=== PATIENT | male | born 1965 | race Caucasian/White ===

== ENCOUNTER 2016-04-02 13:23 | Inpatient (IN) | payer MEDICAID ==
[2016-04-02] MEDS ORDERED: ASPIRIN 81 MG TABLET, CHEWABLE PO ONE (14:25)
[2016-04-02] MEDS ORDERED: METHYLPREDNISOLONE INJ 125 MG/2 ML SDV IV ONE (14:25)
[2016-04-02] MEDS ORDERED: IPRATROPIUM/ALBUTEROL 0.5-2.5 MG/3 ML AMPUL NEB ONE (14:25)
[2016-04-02] MEDS ORDERED: NORMAL SALINE 1000 ML 1,000 ML IV ONE (14:26)
[2016-04-02 14:32] LABS: VENOUS BLOOD BASE EXCESS -0.4 mmol/L; VENOUS BLOOD HCO3 32.5 mmol/L (20-32)
[2016-04-02 14:33] LABS: ABSOLUTE EOSINOPHILS # (AUTO) 0.1 10^3/uL (0.0-0.6); ABSOLUTE LYMPHOCYTES (AUTO) 1.1 10^3/uL (0.5-4.7); ABSOLUTE MONOCYTES (AUTO) 1.9 10^3/uL (0.1-1.4); BASOPHILS % (AUTO) 0.3 % (0-2); EOSINOPHILS % (AUTO) 0.9 % (0-6); HEMATOCRIT 46.5 % (37.9-51.0); HEMOGLOBIN 14.1 g/dL (13.5-17.0); LYMPHOCYTES % (AUTO) 7.4 % (13-45); MEAN CORPUSCULAR HEMOGLOBIN 28.5 pg (27.0-33.4); MEAN CORPUSCULAR HGB CONC 30.4 g/dL (32.0-36.0); MEAN CORPUSCULAR VOLUME 94 fl (80-97); MONOCYTES % (AUTO) 12.2 % (3-13); RED BLOOD COUNT 4.95 10^6/uL (4.35-5.55); RED CELL DISTRIBUTION WIDTH 15.6 % (11.5-14.0); SEGMENTED NEUTROPHILS % (AUTO) 79.2 % (42-78); WHITE BLOOD COUNT 15.2 10^3/uL (4.0-10.5)
[2016-04-02 14:34] LABS: VENOUS BLOOD PCO2 101.2 mmHg (35-63); VENOUS BLOOD PH 7.13 (7.30-7.42)
--- NOTE | 2016-04-02 14:37 | ER Document Report ---
ED Respiratory Problem - General Chief Complaint: Shortness Of Breath Stated Complaint: SHORTNESS OF BREATH Notes: The patient is a 50-year-old male, past medical history current smoker, pituitary mass (currently being worked up as outpatient), presents with 2 days of dry cough, increasing shortness of breath and mild confusion earlier today. On arrival to the emergency room his pulse ox is 78%. He does not wear oxygen at home. According to his , his confusion has resolved after he was placed on oxygen in the emergency room. He denies chest pain, leg swelling, nausea, vomiting, focal weakness, rash, back pain, abdominal pain, sputum or fevers. Past Medical History - General Information source: Patient - Social History Smoking Status: Current Every Day Smoker Family History: Reviewed & Not Pertinent Review of Systems - Review of Systems Notes: REVIEW OF SYSTEMS: CONSTITUTIONAL: -fevers, -chills EENT: -eye pain, -difficulty swallowing, -nasal congestion CARDIOVASCULAR: -chest pain, -syncope. RESPIRATORY: -+cough, +SOB GASTROINTESTINAL: -abdominal pain, - nausea, -vomiting, -diarrhea GENITOURINARY: -dysuria, -hematuria MUSCULOSKELETAL: -back pain, -neck pain SKIN: -rash or skin lesions. HEMATOLOGIC: -easy bruising or bleeding. LYMPHATIC: -swollen, enlarged glands. NEUROLOGICAL: +confusion, -headache, -blurry vision PSYCHIATRIC: -anxiety, -depression. ALL OTHER SYSTEMS REVIEWED AND NEGATIVE. Physical Exam - Vital signs Vitals: Temp Pulse BP Pulse Ox 98.0 F 121 H 165/94 H 64 L 04/02/16 13:34 04/02/16 13:34 04/02/16 13:34 04/02/16 13:34 Temp 98.0, RR 28, Pulse 123, Pulse Ox 78% - Notes Notes: PHYSICAL EXAMINATION: GENERAL: Well-appearing, well-nourished and in no acute distress. HEAD: Atraumatic, normocephalic. EYES: Pupils equal round and reactive to light, extraocular movements intact, sclera anicteric, conjunctiva are normal. ENT: nares patent, oropharynx clear without exudates. Moist mucous membranes. NECK: Normal range of motion, supple without lymphadenopathy LUNGS: Tachypneic, bilateral wheezing, B/L crackles HEART: Tachycardia, regular rhythm ABDOMEN: Soft, nontender, normoactive bowel sounds. No guarding, no rebound. No masses appreciated. EXTREMITIES: Normal range of motion, no pitting or edema. No cyanosis. No calf tenderness. NEUROLOGICAL: Cranial nerves grossly intact. Normal speech, normal gait. Normal sensory, motor, and reflex exams. PSYCH: Normal mood, normal affect. SKIN: Warm, Dry, normal turgor, no rashes or lesions noted. Course - Re-evaluation Re-evalutation: Patient is hypercapnic, hypoxic respiratory failure. Patient placed on BiPAP and is in no respiratory distress at this time. CTA does not show PE, but does show evidence of multifocal pneumonia. With leukocytosis, tachycardia and tachypnea, patient meets sepsis. CAP antibiotics started. He does not meet severe sepsis criteria with a normal blood pressure and normal lactate. Patient requires inpatient admission for further evaluation and treatment. Spoke to Dr. Collier at 1630 and he has accepted patient as inpatient. - Vital Signs Vital signs: Temp Pulse Resp BP Pulse Ox 98.0 F 121 H 11 L 165/94 H 91 L 04/02/16 13:34 04/02/16 13:34 04/02/16 15:21 04/02/16 13:34 04/02/16 15:21 - Laboratory Result Diagrams: 04/02/16 13:50 04/02/16 13:50 Laboratory results interpreted by me: 04/02/16 04/02/16 04/02/16 13:50 13:50 13:50 WBC 15.2 H MCHC 30.4 L RDW 15.6 H Seg Neutrophils % 79.2 H Lymphocytes % 7.4 L Absolute Neutrophils 12.0 H Absolute Monocytes 1.9 H VBG pH 7.13 L* VBG pCO2 101.2 H* VBG HCO3 32.5 H Sodium 146.6 H Carbon Dioxide 33 H Lactic Acid Creatine Kinase 54 L 04/02/16 14:40 WBC MCHC RDW Seg Neutrophils % Lymphocytes % Absolute Neutrophils Absolute Monocytes VBG pH VBG pCO2 VBG HCO3 Sodium Carbon Dioxide Lactic Acid < 0.5 L Creatine Kinase - Diagnostic Test Radiology reviewed: Image reviewed, Reports reviewed Radiology results interpreted by me: CTA: No PE. Evidence of multifocal pneumonia. - EKG Interpretation by Me EKG shows normal: Sinus rhythm, Intervals, QRS Complexes, ST-T Waves Rate: Tachycardia - [address] [place]/QRS: Right axis deviation Discharge - Discharge Clinical Impression: Hypoxia, Acute respiratory acidosis, Hypercapnia Pneumonia Qualifiers: Pneumonia type: due to unspecified organism Laterality: bilateral Lung location : unspecified part of lung Qualified Code(s): J18.9 - Pneumonia, unspecified organism Sepsis Qualifiers: Sepsis type: sepsis due to unspecified organism Qualified Code(s): A41.9 - Sepsis, unspecified organism Condition: Serious Disposition: ADMITTED INPATIENT Admitting Provider: Hospitalist [facility] Unit Admitted: IMCU Referrals: LUCIUS FERRARA MD [Primary Care Provider] - Follow up as needed
[2016-04-02 14:39] LABS: ANION GAP 10 (5-19); BLOOD UREA NITROGEN 17 mg/dL (7-20); CALCIUM 9.6 mg/dL (8.4-10.2); CARBON DIOXIDE 33 mmol/L (22-30); CHLORIDE 104 mmol/L (98-107); CREATINE KINASE 54 U/L (55-170); CREATININE RESULT 0.73 mg/dL (0.52-1.25); GLUCOSE 104 mg/dL (75-110); POTASSIUM 4.4 mmol/L (3.6-5.0); SODIUM 146.6 mmol/L (137-145)
[2016-04-02 14:50] LABS: HGB HCT DIFFERENCE -4.2
[2016-04-02 14:54] LABS: TROPONIN I < 0.012 ng/mL
[2016-04-02] MEDS ORDERED: CEFTRIAXONE INJ 1000 MG VIAL IV ONE (15:12)
[2016-04-02] MEDS ORDERED: AZITHROMYCIN INJ 500 MG VIAL IV ONE (15:12)
[2016-04-02] MEDS ORDERED: CIPROFLOXACIN 400 MG/D5W RTU 200 ML IV SCH (16:00)
[2016-04-02] MEDS ORDERED: NICOTINE 7 MG/24 HR PATCH.TD24 TD ONE ×2 (16:38→20:00)
[2016-04-02] MEDS ORDERED: ALBUTEROL SULFATE 0.083% NEB 2.5 MG/3 ML AMPUL NEB PRN (16:48)
[2016-04-02] MEDS ORDERED: ONDANSETRON HCL INJ/PF 4 MG/2 ML SDV IV PRN (16:55)
--- NOTE | 2016-04-02 17:15 | PDOC H&P ---
History of Present Illness Admission Date/PCP: LUCIUS FERRARA MD Patient complains of: Shortness of breath History of Present Illness: JOSEPH CAREY is a 50 year old male presents to the emergency department with a two-week history of worsening shortness of breath initially noted only during exertion and now during rest with associated cough productive of yellow phlegm. Also associated with fevers and chills at home. He denies sore throat or abdominal pain nausea vomiting or diarrhea. He denies sick contacts. 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 He denies night sweats or abnormal weight loss or hemoptysis. He continues to smoke half pack cigarettes per day but has never been diagnosed with emphysema or COPD. He refuses influenza vaccine. His only chronic medical problem is a new diagnosis of pituitary adenoma discovered during evaluation of weight gain which showed hypothyroidism leading to further evaluation of the pituitary axis. He is not on steroid therapy. He has no underlying asthma or chronic bronchitis never suffered as a child. Evaluation in the emergency department including a CT angiography showed no evidence of pulmonary embolus however there was a multilobar pneumonia found. His arterial blood gas shows hypoxemia and hypercarbia, he's placed on BiPAP therapy for a pH of 7.1 and PCO2 of 101. I find the patient awake alert lucid and talkative. Past Medical History Cardiac Medical History: Reports: None Pulmonary Medical History: Reports: None Endocrine Medical History: Reports: Hypothyroidism, Other - Pituitary adenoma Past Surgical History Past Surgical History: Reports: None Social History Smoking Status: Current Every Day Smoker Cigarettes Packs Per Day: 0.5 Frequency of Alcohol Use: None Hx Recreational Drug Use: No Family History Family History: Reviewed & Not Pertinent. denies: COPD Parental Family History Reviewed: Yes Children Family History Reviewed: Yes Sibling(s) Family History Reviewed.: Yes Medication/Allergy Home Medications: No Home Medications 04/02/16 Allergies/Adverse Reactions: No Known Allergies Allergy (Unverified 04/02/16 17:08) Review of Systems Constitutional: PRESENT: chills, fever(s), weight gain. ABSENT: headache(s), night sweats, weight loss Eyes: ABSENT: visual disturbances Ears: ABSENT: hearing changes Cardiovascular: PRESENT: dyspnea on exertion. ABSENT: chest pain, edema, orthropnea, palpitations Respiratory: PRESENT: cough, dyspnea, sputum. ABSENT: hemoptysis Gastrointestinal: ABSENT: abdominal pain, constipation, diarrhea, hematemesis, hematochezia, nausea, vomiting Genitourinary: ABSENT: dysuria, hematuria Musculoskeletal: ABSENT: joint swelling Integumentary: ABSENT: rash, wounds Neurological: ABSENT: abnormal gait, abnormal speech, confusion, dizziness, focal weakness, syncope Psychiatric: ABSENT: anxiety, depression Endocrine: PRESENT: cold intolerance, heat intolerance. ABSENT: polydipsia, polyuria Hematologic/Lymphatic: ABSENT: easy bleeding, easy bruising Physical Exam Vital Signs: Temp Pulse Resp BP Pulse Ox 98.0 F 121 H 11 L 165/94 H 91 L 04/02/16 13:34 04/02/16 13:34 04/02/16 15:21 04/02/16 13:34 04/02/16 15:21 Intake & Output 04/01/16 04/02/16 04/03/16 06:59 06:59 06:59 Weight 122.9 kg General appearance: PRESENT: no acute distress, obese, well-developed Head exam: PRESENT: atraumatic, normocephalic Eye exam: PRESENT: conjunctiva pink, EOMI, PERRLA. ABSENT: scleral icterus Mouth exam: PRESENT: moist, tongue midline Neck exam: ABSENT: carotid bruit, JVD, lymphadenopathy, thyromegaly Respiratory exam: PRESENT: crackles, unlabored. ABSENT: rales, rhonchi, wheezes Cardiovascular exam: PRESENT: RRR, tachycardia. ABSENT: diastolic murmur, rubs , systolic murmur Pulses: PRESENT: normal dorsalis pedis pul Vascular exam: PRESENT: normal capillary refill GI/Abdominal exam: PRESENT: normal bowel sounds, soft. ABSENT: distended, guarding, rebound, tenderness Rectal exam: PRESENT: deferred Extremities exam: PRESENT: full ROM. ABSENT: calf tenderness, clubbing, pedal edema Neurological exam: PRESENT: alert, awake, oriented to person, oriented to place , oriented to time, oriented to situation Psychiatric exam: PRESENT: appropriate affect, normal mood Skin exam: PRESENT: dry, intact, warm. ABSENT: cyanosis, rash Results Laboratory Results: 04/02/16 13:50 04/02/16 13:50 04/02/16 04/02/16 04/02/16 13:50 13:50 13:50 WBC 15.2 H RBC 4.95 Hgb 14.1 Hct 46.5 MCV 94 MCH 28.5 MCHC 30.4 L RDW 15.6 H Plt Count 310 Seg Neutrophils % 79.2 H Lymphocytes % 7.4 L Monocytes % 12.2 Eosinophils % 0.9 Basophils % 0.3 Absolute Neutrophils 12.0 H Absolute Lymphocytes 1.1 Absolute Monocytes 1.9 H Absolute Eosinophils 0.1 Absolute Basophils 0.0 VBG pH 7.13 L* VBG pCO2 101.2 H* VBG HCO3 32.5 H VBG Base Excess -0.4 Sodium 146.6 H Potassium 4.4 Chloride 104 Carbon Dioxide 33 H Anion Gap 10 BUN 17 Creatinine 0.73 Est GFR ( Amer) > 60 Est GFR (Non-Af Amer) > 60 Glucose 104 Lactic Acid Calcium 9.6 04/02/16 14:40 WBC RBC Hgb Hct MCV MCH MCHC RDW Plt Count Seg Neutrophils % Lymphocytes % Monocytes % Eosinophils % Basophils % Absolute Neutrophils Absolute Lymphocytes Absolute Monocytes Absolute Eosinophils Absolute Basophils VBG pH VBG pCO2 VBG HCO3 VBG Base Excess Sodium Potassium Chloride Carbon Dioxide Anion Gap BUN Creatinine Est GFR ( Amer) Est GFR (Non-Af Amer) Glucose Lactic Acid < 0.5 L Calcium 04/02/16 04/02/16 13:50 13:50 Creatine Kinase 54 L Troponin I < 0.012 NT-Pro-B Natriuret Pep 77 Impressions: Chest X-Ray 04/02/16 14:10 IMPRESSION: Patchy predominately perihilar airspace densities are identified which could represent pneumonic infiltrates or pulmonary edema. No pleural effusions are identified. Other findings as noted above. Chest/Abdomen CTA 04/02/16 14:49 IMPRESSION: 1. No central or segmental pulmonary embolus. 2. Constellation of findings favor to represent multi focal pneumonia. 3. Small pericardial effusion. Assessment & Plan - Diagnosis (1) Pneumonia Qualifiers: Pneumonia type: due to unspecified organism Laterality: bilateral Lung location: unspecified part of lung Qualified Code(s): J18.9 - Pneumonia , unspecified organism Is this a current diagnosis for this admission?: YesPlan: Admitted to [facility] for continued BiPAP therapy through the night, repeat arterial blood gas in 1 hour. Empiric Rocephin and Zithromax. Follow-up on influenza screen in the emergency department and start Tamiflu if indicated. Supple oxygen as needed. Scheduled DuoNeb's with albuterol when necessary, flutter valve. (2) Hypercapnia Is this a current diagnosis for this admission?: YesPlan: As above (3) Hypoxia Is this a current diagnosis for this admission?: YesPlan: As above (4) Sepsis Qualifiers: Sepsis type: sepsis due to unspecified organism Qualified Code(s): A41.9 - Sepsis, unspecified organism Is this a current diagnosis for this admission?: YesPlan: Evidence by tachypnea, leukocytosis and source. (5) Pituitary adenoma Is this a current diagnosis for this admission?: YesPlan: Workup underway as an outpatient, already scheduled to see neurosurgery in [facility]. (6) KENDRICK (obstructive sleep apnea) Is this a current diagnosis for this admission?: YesPlan: Nocturnal O2 dependent based on previous sleep study, patient denies nocturnal CPAP. However given his known apnea and current multi lobar pneumonia we'll continue BiPAP through the night and reevaluate in the morning. - Time Time Spent: Greater than 70 Minutes - Inpatient Certification Based on my medical assessment, after consideration of the patient's comorbidities, presenting symptoms, or acuity I expect that the services needed warrant INPATIENT care.: Yes I certify that my determination is in accordance with my understanding of Medicare's requirements for reasonable and necessary INPATIENT services [42 CFR 412.3e].: Yes Medical Necessity: Failure to Improve With Outpatient Therapy, Need Close Monitoring Due to Risk of Patient Decompensation, Need For IV Fluids, Need for Nebulizer Therapy and Monitoring of Response
--- NOTE | 2016-04-02 18:35 | EKG REPORT ---
SEVERITY:- BORDERLINE ECG - SINUS TACHYCARDIA BORDERLINE RIGHT AXIS DEVIATION BORDERLINE T ABNORMALITIES, INFERIOR LEADS : Confirmed by: Francine Lynch MD 02-Apr-2016 18:34:17
[2016-04-02] MEDS: NORMAL SALINE 1000 ML 1,000 ML IV PRN (20:13)
[2016-04-02] MEDS: IPRATROPIUM/ALBUTEROL 0.5-2.5 MG/3 ML AMPUL NEB SCH (20:48)
[2016-04-02 21:27] LABS: ARTERIAL BLOOD BASE EXCESS 0.8 mmol/L; ARTERIAL BLOOD O2 SATURATION 99.4 % (94-98)
[2016-04-02] MEDS ORDERED: CIPROFLOXACIN 400 MG/D5W RTU 400 MG/200 ML RTUPB IV SCH (22:00)
[2016-04-03 01:35] LABS: VENOUS BLOOD BASE EXCESS 1.1 mmol/L; VENOUS BLOOD HCO3 31.6 mmol/L (20-32); VENOUS BLOOD PH 7.21 (7.30-7.42)
[2016-04-03 01:38] LABS: VENOUS BLOOD PCO2 81.6 mmHg (35-63)
[2016-04-03] MEDS: IPRATROPIUM/ALBUTEROL 0.5-2.5 MG/3 ML AMPUL NEB SCH ×4 (02:38→20:04)
[2016-04-03] MEDS: LANSOPRAZOLE 30 MG TAB.RAP.DR PO SCH (05:17)
[2016-04-03] MEDS: ACETAMINOPHEN 325 MG TABLET PO PRN (05:18)
[2016-04-03 07:48] LABS: VENOUS BLOOD BASE EXCESS -0.4 mmol/L; VENOUS BLOOD HCO3 30.6 mmol/L (20-32)
[2016-04-03 07:50] LABS: HEMATOCRIT 42.7 % (37.9-51.0); HGB HCT DIFFERENCE -3.7; MEAN CORPUSCULAR HEMOGLOBIN 28.7 pg (27.0-33.4); MEAN CORPUSCULAR HGB CONC 30.4 g/dL (32.0-36.0); MEAN CORPUSCULAR VOLUME 95 fl (80-97); RED BLOOD COUNT 4.52 10^6/uL (4.35-5.55); WHITE BLOOD COUNT 12.2 10^3/uL (4.0-10.5)
[2016-04-03 07:59] LABS: VENOUS BLOOD PCO2 84.2 mmHg (35-63); VENOUS BLOOD PH 7.18 (7.30-7.42)
[2016-04-03 08:13] LABS: ANION GAP 9 (5-19); BLOOD UREA NITROGEN 14 mg/dL (7-20); CALCIUM 9.4 mg/dL (8.4-10.2); CARBON DIOXIDE 30 mmol/L (22-30); CHLORIDE 104 mmol/L (98-107); CREATININE RESULT 0.65 mg/dL (0.52-1.25); GLUCOSE 95 mg/dL (75-110); POTASSIUM 4.6 mmol/L (3.6-5.0); SODIUM 142.9 mmol/L (137-145)
[2016-04-03] MEDS: ENOXAPARIN SODIUM INJ 40 MG/0.4 ML DISP.SYRIN SUBCUT SCH (10:32)
[2016-04-03] MEDS: DOCUSATE SODIUM 100 MG CAPSULE PO SCH (10:33)
[2016-04-03] MEDS: NORMAL SALINE 1000 ML 1,000 ML IV PRN (10:33)
[2016-04-03] MEDS: CEFTRIAXONE 1 GM/D5W RTU 50 ML IV SCH (10:34)
[2016-04-03] MEDS: AZITHROMYCIN 500 MG in DEXTROSE 5%-WATER 250 ML IV SCH (12:06)
[2016-04-03] MEDS ORDERED: METHYLPREDNISOLONE INJ 40 MG/1 ML SDV IV ONE (13:00)
--- NOTE | 2016-04-03 14:11 | PDOC PROGRESS REPORT ---
Subjective Progress Note for:: 04/03/16 Subjective:: JOSEPH CAREY is a 50 year old male presents to the emergency department with a two-week history of worsening shortness of breath initially noted only during exertion and now during rest with associated cough productive of yellow phlegm. Also associated with fevers and chills at home. He denies sore throat or abdominal pain nausea vomiting or diarrhea. He denies sick contacts. 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 He denies night sweats or abnormal weight loss or hemoptysis. He continues to smoke half pack cigarettes per day but has never been diagnosed with emphysema or COPD. He refuses influenza vaccine. His only chronic medical problem is a new diagnosis of pituitary adenoma discovered during evaluation of weight gain which showed hypothyroidism leading to further evaluation of the pituitary axis. He is not on steroid therapy. He has no underlying asthma or chronic bronchitis never suffered as a child. Evaluation in the emergency department including a CT angiography showed no evidence of pulmonary embolus however there was a multilobar pneumonia found. His arterial blood gas shows hypoxemia and hypercarbia, he's placed on BiPAP therapy for a pH of 7.1 and PCO2 of 101. I find the patient awake alert lucid and talkative. Dr. Patel titrated his BiPAP during the night and he has pH and PCO2 responded accordingly. The patient remains wide awake and alert and talkative completely lucid at this time. His has arrived at the bedside and tells me however that over the course the 24 hours preceding his admission he become more somnolent or confused and even combative at times which was clearly not his usual norm. Physical Exam Vital Signs: Temp Pulse Resp BP Pulse Ox 98.8 F 76 20 137/86 H 94 04/03/16 12:00 04/03/16 13:28 04/03/16 13:28 04/03/16 12:00 04/03/16 13:28 Intake & Output 04/02/16 04/03/16 04/04/16 06:59 06:59 06:59 Intake Total 1238 550 Balance 1238 550 Weight 122.9 kg General appearance: PRESENT: no acute distress, obese, well-developed Head exam: PRESENT: atraumatic, normocephalic Eye exam: PRESENT: conjunctiva pink, EOMI, PERRLA. ABSENT: scleral icterus Mouth exam: PRESENT: moist, tongue midline Neck exam: ABSENT: carotid bruit, JVD, lymphadenopathy, thyromegaly Respiratory exam: PRESENT: rhonchi - Diffuse, bilateral, new. ABSENT: rales, wheezes Cardiovascular exam: PRESENT: RRR. ABSENT: diastolic murmur, rubs, systolic murmur Pulses: PRESENT: normal dorsalis pedis pul Vascular exam: PRESENT: normal capillary refill GI/Abdominal exam: PRESENT: normal bowel sounds, soft. ABSENT: distended, guarding, rebound, tenderness Rectal exam: PRESENT: deferred Extremities exam: PRESENT: full ROM. ABSENT: calf tenderness, clubbing, pedal edema Neurological exam: PRESENT: alert, awake, oriented to person, oriented to place , oriented to time, oriented to situation Psychiatric exam: PRESENT: appropriate affect, normal mood Skin exam: PRESENT: dry, intact, warm. ABSENT: cyanosis, rash Results Laboratory Results: 04/03/16 07:35 04/03/16 07:35 04/02/16 04/03/16 04/03/16 21:00 01:16 07:35 WBC 12.2 H RBC 4.52 Hgb 13.0 L Hct 42.7 MCV 95 MCH 28.7 MCHC 30.4 L RDW 16.0 H Plt Count 265 Carbonic Acid 2.72 H HCO3/H2CO3 Ratio 11:1 ABG pH 7.17 L* ABG pCO2 90.5 H* ABG pO2 276.8 H ABG HCO3 32.5 H ABG O2 Saturation 99.4 H ABG Base Excess 0.8 VBG pH 7.21 L VBG pCO2 81.6 H* VBG HCO3 31.6 VBG Base Excess 1.1 FiO2 100% Sodium Potassium Chloride Carbon Dioxide Anion Gap BUN Creatinine Est GFR ( Amer) Est GFR (Non-Af Amer) Glucose Calcium 04/03/16 04/03/16 07:35 07:35 WBC RBC Hgb Hct MCV MCH MCHC RDW Plt Count Carbonic Acid HCO3/H2CO3 Ratio ABG pH ABG pCO2 ABG pO2 ABG HCO3 ABG O2 Saturation ABG Base Excess VBG pH 7.18 L* VBG pCO2 84.2 H* VBG HCO3 30.6 VBG Base Excess -0.4 FiO2 Sodium 142.9 Potassium 4.6 Chloride 104 Carbon Dioxide 30 Anion Gap 9 BUN 14 Creatinine 0.65 Est GFR ( Amer) > 60 Est GFR (Non-Af Amer) > 60 Glucose 95 Calcium 9.4 Impressions: Chest X-Ray 04/02/16 14:10 IMPRESSION: Patchy predominately perihilar airspace densities are identified which could represent pneumonic infiltrates or pulmonary edema. No pleural effusions are identified. Other findings as noted above. Chest/Abdomen CTA 04/02/16 14:49 IMPRESSION: 1. No central or segmental pulmonary embolus. 2. Constellation of findings favor to represent multi focal pneumonia. 3. Small pericardial effusion. Assessment & Plan - Diagnosis (1) Pneumonia Qualifiers: Pneumonia type: due to unspecified organism Laterality: bilateral Lung location: unspecified part of lung Qualified Code(s): J18.9 - Pneumonia , unspecified organism Is this a current diagnosis for this admission?: YesPlan: Community-acquired. Admitted to [facility] for continued BiPAP therapy as needed. Empiric Rocephin and Zithromax. influenza screen negative, mycoplasma antibodies pending. Supplemental oxygen as needed. Scheduled DuoNeb's with albuterol when necessary, flutter valve. Pulmonary consult (2) Hypercapnia Is this a current diagnosis for this admission?: YesPlan: As above (3) Hypoxia Is this a current diagnosis for this admission?: YesPlan: As above. Diffuse wheezing today so we will add systemic steroids and monitor effect awaiting pulmonology's consult (4) Sepsis Qualifiers: Sepsis type: sepsis due to unspecified organism Qualified Code(s): A41.9 - Sepsis, unspecified organism Is this a current diagnosis for this admission?: YesPlan: Evidence by tachypnea, leukocytosis and source. Stable (5) Pituitary adenoma Is this a current diagnosis for this admission?: YesPlan: Workup underway as an outpatient, already scheduled to see neurosurgery in [facility]. (6) KENDRICK (obstructive sleep apnea) Is this a current diagnosis for this admission?: YesPlan: Nocturnal O2 dependent based on previous sleep study, patient denies nocturnal CPAP. However given his known apnea and current multi lobar pneumonia we'll continue BiPAP at night and reevaluate as we go. - Time Time Spent with patient: 35 or more minutes Anticipated discharge: Home Within: within 48 hours
[2016-04-03] MEDS: LACTOBACILLUS ACIDOPHILUS 250 MG TAB PO SCH (17:42)
[2016-04-03 19:15] LABS: ARTERIAL BLOOD BASE EXCESS 4.5 mmol/L
--- NOTE | 2016-04-03 20:38 | CONSULTATION REPORT E ---
Consultation Report NAME: JOSEPH CAREY : 1965 AGE: 50Y DATE: 04/03/2016 336 A TO: LINDA SALCEDO M.D. FROM: ALLAN ARELLANO M.D. Requesting Physician HISTORY OF PRESENT ILLNESS: Patient is a 50-year-old male who came in for increased shortness of breath associated with increased coughing productively with yellow greenish sputum over the last 1 or 2 weeks. Condition worsened. Thus, patient came into the Emergency Room eventually. Patient claimed that he had fever and chills at home. Patient was admitted about 2 days ago, was started on azithromycin, ceftriaxone, appeared to be feeling a lot better. He was placed on BiPAP when he came in and tolerated it well. Currently, the patient is feeling a lot better. No fever over the last 24-48 hours. No chills. No hemoptysis. No chest pain. Currently not on BiPAP and not in apparent respiratory distress. Patient claimed that he smokes about 1 pack a day for several years. 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 PAST MEDICAL HISTORY: The patient has past medical history of: 1. Hypothyroidism. 2. Pituitary adenoma. Denies any history of hypertension or heart problem. PAST SURGICAL HISTORY: None. SOCIAL HISTORY: Patient smokes 1 pack a day every day for several years. Denies alcohol abuse or illicit drug use. Denies marijuana or cocaine use. FAMILY HISTORY: Unremarkable. HOME MEDICATIONS: None. ALLERGIES: No known drug allergies. REVIEW OF SYSTEMS: CONSTITUTIONAL: Claimed to have fever and chills at home prior to admission. EYES, EARS, NOSE AND THROAT: No ear drainage, no nasal discharge. No blurry vision. CARDIOVASCULAR: Denies any history of hypertension, arrhythmias, or heart problems. Denies any chest pain. RESPIRATORY: Complained about increased shortness of breath and coughing productively with yellow greenish sputum, chest tightness. GASTROINTESTINAL: No nausea, vomiting, diarrhea. GENITOURINARY: No dysuria or hematuria, or passing renal stone. EXTREMITIES: No joint swelling or cellulitis. PHYSICAL EXAMINATION: GENERAL: Patient is awake, alert, oriented x3. VITAL SIGNS: Temperature 98.9 with a T-max of 98.9 over the last 24 hours. Heart rate 105. Blood pressure is 121/71. Saturation is 98% on 3 L on nasal cannula. HEENT: Eyes: No jaundice or pallor. Ears, nose and throat: No ear drainage or nasal discharge. Head and neck: No scalp swelling or tenderness. Neck supple. CHEST/LUNGS: No wheezing, no rhonchi. No coarse crackles. CARDIOVASCULAR: S1 and S2 distinct. Normal rate and regular rhythm. ABDOMEN: Flabby. Positive bowel sounds. Soft, nondistended. EXTREMITIES: No joint swelling. No cellulitis. LABORATORY: CBC done today showed white count of 12.2 from 15.2 yesterday; hemoglobin is 13; hematocrit is 42.7. The chemistry today shows sodium 142.9, potassium 4.6, chloride 104, CO2 30, BUN 14, creatinine 0.65. Lactate 0.05. Cardiac enzymes were negative. Anti-BNP was 77. Blood gas done this morning at 0735 hours showed venous blood gas pH was 7.18, venous blood gas pCO2 of 84.2, bicarbonate 13.6. Blood cultures on 04/02/[address] scan done on 04/02/2016 showed infiltrate with ground-glass pattern on the left and right apical lobes and the right lower lobe. Right lower lobe showed some crease appearing pattern as well. ASSESSMENT: 1. Pneumonia. Community-acquired pneumonia cannot be completely excluded. 2. 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 3. History of smoking 1 pack a day for several years. PLAN/RECOMMENDATIONS: 1. Continue IV antibiotics. 2. Sputum culture tonight. 3. We will repeat ABG tonight. 4. Recommend tapering the Solu-Medrol to 20 mg q.12 hours. 5. Titrate FiO2 to give saturation 91-94%. DICTATING PHYSICIAN: LINDA SALCEDO MD,FARRUKH,MPH [id number] PHY#: [id number] ID: [id number] JOB#: [id number] ACCT: [id number] cc:LINDA SALCEDO M.D. > [facility]
[2016-04-03] MEDS: METHYLPREDNISOLONE INJ 40 MG/1 ML SDV IV SCH (22:00)
[2016-04-04] MEDS: NICOTINE 14 MG/24 HR PATCH.TD24 TD PRN (01:02)
[2016-04-04] MEDS: IPRATROPIUM/ALBUTEROL 0.5-2.5 MG/3 ML AMPUL NEB SCH ×4 (01:56→20:49)
[2016-04-04] MEDS: NORMAL SALINE 1000 ML 1,000 ML IV PRN (02:27)
[2016-04-04] MEDS: LANSOPRAZOLE 30 MG TAB.RAP.DR PO SCH (06:27)
[2016-04-04 06:39] LABS: HEMATOCRIT 40.7 % (37.9-51.0); HEMOGLOBIN 12.4 g/dL (13.5-17.0); HGB HCT DIFFERENCE -3.5; MEAN CORPUSCULAR HEMOGLOBIN 28.6 pg (27.0-33.4); MEAN CORPUSCULAR HGB CONC 30.4 g/dL (32.0-36.0); MEAN CORPUSCULAR VOLUME 94 fl (80-97); RED BLOOD COUNT 4.33 10^6/uL (4.35-5.55); RED CELL DISTRIBUTION WIDTH 15.4 % (11.5-14.0); WHITE BLOOD COUNT 12.4 10^3/uL (4.0-10.5)
[2016-04-04 06:58] LABS: ANION GAP 9 (5-19); BLOOD UREA NITROGEN 18 mg/dL (7-20); CALCIUM 9.3 mg/dL (8.4-10.2); CARBON DIOXIDE 32 mmol/L (22-30); CHLORIDE 104 mmol/L (98-107); CREATININE RESULT 0.73 mg/dL (0.52-1.25); GLUCOSE 113 mg/dL (75-110); POTASSIUM 4.3 mmol/L (3.6-5.0); SODIUM 144.5 mmol/L (137-145)
[2016-04-04] MEDS: CEFTRIAXONE 1 GM/D5W RTU 50 ML IV SCH (10:09)
[2016-04-04] MEDS: AZITHROMYCIN 500 MG in DEXTROSE 5%-WATER 250 ML IV SCH (10:09)
[2016-04-04] MEDS: ENOXAPARIN SODIUM INJ 40 MG/0.4 ML DISP.SYRIN SUBCUT SCH (10:09)
[2016-04-04] MEDS: LACTOBACILLUS ACIDOPHILUS 250 MG TAB PO SCH ×2 (10:10→18:32)
[2016-04-04] MEDS: METHYLPREDNISOLONE INJ 40 MG/1 ML SDV IV SCH (10:10)
[2016-04-04] MEDS: DOCUSATE SODIUM 100 MG CAPSULE PO SCH (10:10)
--- NOTE | 2016-04-04 14:12 | PDOC PROGRESS REPORT ---
Subjective Progress Note for:: 04/04/16 Subjective:: Patient is feeling a lot better No fever no chills no pleuritic chest pain He is oxygenating adequately on 4 L/m nasal cannula Patient states that stay at home he has nasal O2 at night He did have a sleep study and was found not to be a candidate for C Pap 4 years ago Physical Exam Vital Signs: Temp Pulse Resp BP Pulse Ox 98.1 F 119 H 18 125/75 92 04/04/16 11:25 04/04/16 13:59 04/04/16 13:06 04/04/16 11:25 04/04/16 13:06 Intake & Output 04/03/16 04/04/16 04/05/16 00:59 00:59 00:59 Intake Total 300 5146 1863 Balance 300 5146 1863 Weight 122.9 kg 124.8 kg General appearance: PRESENT: no acute distress, obese Head exam: PRESENT: atraumatic, normocephalic Eye exam: PRESENT: conjunctiva pink, EOMI, PERRLA. ABSENT: scleral icterus Neck exam: ABSENT: carotid bruit, JVD, lymphadenopathy, thyromegaly Respiratory exam: PRESENT: decreased breath sounds, rales - Bilaterally, unlabored. ABSENT: accessory muscle use, prolonged expiratory phas Cardiovascular exam: PRESENT: tachycardia. ABSENT: diastolic murmur, systolic murmur Vascular exam: PRESENT: normal capillary refill GI/Abdominal exam: PRESENT: normal bowel sounds, soft. ABSENT: distended, guarding, mass, organolmegaly, rebound, tenderness Extremities exam: PRESENT: full ROM. ABSENT: calf tenderness, clubbing, pedal edema Neurological exam: PRESENT: alert, awake, oriented to person, oriented to place , oriented to time, oriented to situation, CN II-XII grossly intact. ABSENT: motor sensory deficit Skin exam: PRESENT: dry, intact, warm. ABSENT: cyanosis, rash Results Laboratory Results: 04/04/16 06:18 04/04/16 06:18 04/03/16 04/04/16 04/04/16 19:00 06:18 06:18 WBC 12.4 H RBC 4.33 L Hgb 12.4 L Hct 40.7 MCV 94 MCH 28.6 MCHC 30.4 L RDW 15.4 H Plt Count 250 Carbonic Acid 1.70 H HCO3/H2CO3 Ratio 18:1 ABG pH 7.36 ABG pCO2 56.4 H ABG pO2 66.0 L ABG HCO3 31.4 H ABG O2 Saturation 92.0 L ABG Base Excess 4.5 FiO2 2.0L Sodium 144.5 Potassium 4.3 Chloride 104 Carbon Dioxide 32 H Anion Gap 9 BUN 18 Creatinine 0.73 Est GFR ( Amer) > 60 Est GFR (Non-Af Amer) > 60 Glucose 113 H Calcium 9.3 Impressions: Chest X-Ray 04/02/16 14:10 IMPRESSION: Patchy predominately perihilar airspace densities are identified which could represent pneumonic infiltrates or pulmonary edema. No pleural effusions are identified. Other findings as noted above. Chest/Abdomen CTA 04/02/16 14:49 IMPRESSION: 1. No central or segmental pulmonary embolus. 2. Constellation of findings favor to represent multi focal pneumonia. 3. Small pericardial effusion. Assessment & Plan - Diagnosis (1) Acute and chronic respiratory failure with hypercapnia Is this a current diagnosis for this admission?: YesPlan: Secondary to obstructive sleep apnea ,COPD exacerbation and bilateral pneumonia Continue steroids nebs antibiotics Patient initially BiPAP support is now oxygenating adequately on nasal O2 Evaluate patient at discharge for nasal O2 during the day Repeat sleep study as an outpatient after discharge (2) KENDRICK (obstructive sleep apnea) Is this a current diagnosis for this admission?: Yes (3) Pituitary adenoma Is this a current diagnosis for this admission?: YesPlan: Workup in progress (4) Pneumonia Qualifiers: Pneumonia type: due to unspecified organism Laterality: bilateral Lung location: unspecified part of lung Qualified Code(s): J18.9 - Pneumonia , unspecified organism Is this a current diagnosis for this admission?: YesPlan: Continue antibiotics We'll switch to by mouth antibiotics vantin and azithromycin Patient will be treated for 10 days after discharge - Time Time Spent with patient: 25-34 minutes
[2016-04-04] MEDS: CEFPODOXIME 200 MG TABLET PO SCH (22:56)
[2016-04-05] MEDS: NICOTINE 14 MG/24 HR PATCH.TD24 TD PRN (01:44)
[2016-04-05] MEDS: IPRATROPIUM/ALBUTEROL 0.5-2.5 MG/3 ML AMPUL NEB SCH ×3 (01:46→13:17)
[2016-04-05 05:08] LABS: HEMATOCRIT 39.5 % (37.9-51.0); HEMOGLOBIN 12.7 g/dL (13.5-17.0); HGB HCT DIFFERENCE -1.4; MEAN CORPUSCULAR HEMOGLOBIN 29.5 pg (27.0-33.4); MEAN CORPUSCULAR HGB CONC 32.1 g/dL (32.0-36.0); MEAN CORPUSCULAR VOLUME 92 fl (80-97); RED CELL DISTRIBUTION WIDTH 15.1 % (11.5-14.0)
[2016-04-05 05:27] LABS: ANION GAP 10 (5-19); BLOOD UREA NITROGEN 23 mg/dL (7-20); CALCIUM 9.4 mg/dL (8.4-10.2); CARBON DIOXIDE 30 mmol/L (22-30); CHLORIDE 106 mmol/L (98-107); CREATININE RESULT 0.68 mg/dL (0.52-1.25); GLUCOSE 115 mg/dL (75-110); POTASSIUM 3.6 mmol/L (3.6-5.0); SODIUM 146.3 mmol/L (137-145)
[2016-04-05] MEDS: ACETAMINOPHEN 325 MG TABLET PO PRN (09:01)
[2016-04-05] MEDS: LANSOPRAZOLE 30 MG TAB.RAP.DR PO SCH (09:01)
--- NOTE | 2016-04-05 09:54 | PROGRESS NOTE E ---
Progress Note NAME: JOSEPH CAREY : 1965 AGE: 50Y DATE: 04/04/2016 ROOM: 336 SUBJECTIVE: The patient is a 50-year-old male who came in with severe respiratory distress and treated for pneumonia and acute respiratory failure requiring BiPAP therapy. Currently feeling a lot better. Denies any fever. Denies any nausea, vomiting, diarrhea. Still coughing yellow-green phlegm. The patient was afebrile for the last 24 hours. Denies any hemoptysis or chest pain. He is on home oxygen therapy of 4 L after sleep study 3 or 4 years ago in [place]. OBJECTIVE: GENERAL: The patient is awake, alert, oriented x3, not is apparent respiratory distress. VITAL SIGNS: With a temperature is 98.5 with a T-Max of 98.5. Blood pressure is 151/88. Pulse rate is 87. Respiratory rate 16. Saturation 92% on room air. EYES: No jaundice or pallor. EARS, NOSE, AND THROAT: No ear drainage. No nasal discharge. HEAD AND NECK: No scalp swelling or tenderness. Neck is supple. CHEST AND LUNGS: Fine rales bibasilar. No wheezing. No coarse crackles. CARDIOVASCULAR: S1, S2 is distinct. No murmur. Regular rhythm. ABDOMEN: Flabby, positive bowel sounds, soft, nondistended. EXTREMITIES: No joint swelling. No cellulitis. LABORATORY: CBC done today shows white count of 12.4 from 15.2 two days ago, hemoglobin is 12.4, hematocrit is 40.7, platelet is 250. ABG last night at 7:00 p.m. showed pH of 7.36, pCO2 of 56,and pO2 of 66.4 Saturation is 92% on 2 L. Chemistry: Sodium 144, potassium 4.3, CO2 is 22, chloride is 104. BUN is 18, creatinine 0.73. Glucose 113, calcium 9.3. Blood cultures yesterday no growth up to 48 hours. ASSESSMENT: 1. PNEUMONIA BILATERALLY. 2. INTERSTITIAL PNEUMONITIS - POSSIBLE ACUTE ON CHRONIC HYPERSENSITIVITY PNEUMONITIS. 3. SEVERE HYPOXEMIA REQUIRING OXYGEN THERAPY. PLAN/RECOMMENDATION: 1. Continue antibiotics. 2. Recommend tapering of the prednisone to 10 mg PO daily. Patient needed to be on prednisone for at least 3-4 weeks. 3. Recommend followup in 2 weeks following hospital discharge. 4. Recommend home oxygen therapy 2 L nasal cannula during sleep. 5. Encouraged patient to quit smoking. Will sign off tonight. If you have any questions, please feel free to call me. DICTATING PHYSICIAN: LINDA SALCEDO MD,FARRUKH,MPH [id number] PHY#: [id number] ID: [id number] JOB#: [id number] ACCT: [id number] cc: > MTDD
[2016-04-05] MEDS ORDERED: PREDNISONE 20 MG TABLET PO SCH (10:00)
[2016-04-05] MEDS ORDERED: AZITHROMYCIN 250 MG TABLET PO SCH (10:00)
[2016-04-05] MEDS: ENOXAPARIN SODIUM INJ 40 MG/0.4 ML DISP.SYRIN SUBCUT SCH (10:35)
[2016-04-05] MEDS: LACTOBACILLUS ACIDOPHILUS 250 MG TAB PO SCH (10:38)
[2016-04-05] MEDS: DOCUSATE SODIUM 100 MG CAPSULE PO SCH (10:39)
[2016-04-05] MEDS: CEFPODOXIME 200 MG TABLET PO SCH (10:39)
[2016-04-05 14:48] VITALS: BP 137/86
--- NOTE | 2016-04-05 15:11 | PDOC DISCHARGE SUMMARY ---
General - Admit/Disc Date/PCP Admission Date/Primary Care Provider: 04/02/16 16:48 LUCIUS FERRARA MD Discharge Date: 04/05/16 - Discharge Diagnosis (1) Acute and chronic respiratory failure with hypercapnia Is this a current diagnosis for this admission?: YesSummary: Acute on chronic respiratory failure with hypoxemia and hypercapnia Respiratory failure secondary to bilateral pneumonia COPD exacerbation and obstructive sleep apnea Patient prior to admission is already on nasal O2 at night He did not wear her C Pap He was discharged with nasal O2 with ambulation and an O2 concentrator was obtained (2) KENDRICK (obstructive sleep apnea) Is this a current diagnosis for this admission?: YesSummary: Treated with nasal O2 at night (3) Pituitary adenoma Is this a current diagnosis for this admission?: YesSummary: Ongoing workup at [facility] Patient is scheduled for an MRI of the pituitary gland (4) Pneumonia Is this a current diagnosis for this admission?: YesSummary: Patient was diagnosed of bilateral pneumonia He was treated with ceftriaxone and Zithromax And discharge on vantin and azithromycin - Additional Information Discharge Diet: As Tolerated Discharge Activity: Activity As Tolerated, Balance Activity w/Rest Home Medications: Levothyroxine Sodium [Synthroid] 50 mcg PO DAILY 04/02/16 Levothyroxine Sodium [Synthroid] 200 mcg PO DAILY 04/02/16 Simvastatin [Zocor 40 mg Tablet] 40 mg PO QHS 04/02/16 Acidoph/L.bulg/Bif.b/S.thermop [Bacid Caplet] 1 each PO BID #20 tablet 04/05/16 Azithromycin [Zithromax 250 mg Tablet] 500 mg PO DAILY #10 tablet 04/05/16 Cefpodoxime Proxetil [Vantin 200 mg Tablet] 1 tab PO Q12 #20 tab 04/05/16 Nicotine [Nicoderm 14 mg/24 Hr Transdermal Patch] 1 each TD DAILYP PRN #30 patch.td24 04/05/16 Prednisone [Deltasone 20 mg Tablet] 40 mg PO DAILY #50 tablet 04/05/16 History of Present Illness Patient complains of: Shortness of breath History of Present Illness: JOSEPH CAREY is a 50 year old male presents to the emergency department with a two-week history of worsening shortness of breath initially noted only during exertion and now during rest with associated cough productive of yellow phlegm. Also associated with fevers and chills at home. He denies sore throat or abdominal pain nausea vomiting or diarrhea. He denies sick contacts. 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 He denies night sweats or abnormal weight loss or hemoptysis. He continues to smoke half pack cigarettes per day but has never been diagnosed with emphysema or COPD. He refuses influenza vaccine. His only chronic medical problem is a new diagnosis of pituitary adenoma discovered during evaluation of weight gain which showed hypothyroidism leading to further evaluation of the pituitary axis. He is not on steroid therapy. He has no underlying asthma or chronic bronchitis never suffered as a child. Evaluation in the emergency department including a CT angiography showed no evidence of pulmonary embolus however there was a multilobar pneumonia found. His arterial blood gas shows hypoxemia and hypercarbia, he's placed on BiPAP therapy for a pH of 7.1 and PCO2 of 101. I find the patient awake alert lucid and talkative. Hospital Course Hospital Course: Patient was admitted with hypoxemia, bilateral pneumonia He had an uncomplicated course and responded to ceftriaxone and azithromycin he was found to be still hypoxemic with exertion at discharge He was discharged with nasal O2 on ambulation Physical Exam Vital Signs: Temp Pulse Resp BP Pulse Ox 98.4 F 102 H 18 137/86 H 18 L 04/05/16 14:36 04/05/16 14:36 04/05/16 14:36 04/05/16 14:36 04/05/16 14:36 Intake & Output 04/04/16 04/05/16 04/06/16 00:59 00:59 00:59 Intake Total 5146 5429 655 Output Total 3 Balance 5146 5426 655 Weight 122.9 kg 124.8 kg 122 kg General appearance: PRESENT: no acute distress Head exam: PRESENT: atraumatic, normocephalic Eye exam: PRESENT: conjunctiva pink, EOMI, PERRLA. ABSENT: scleral icterus Neck exam: ABSENT: carotid bruit, JVD, lymphadenopathy, thyromegaly Respiratory exam: PRESENT: decreased breath sounds, symmetrical, wheezes. ABSENT: accessory muscle use, prolonged expiratory phas, tachypnea Cardiovascular exam: PRESENT: RRR. ABSENT: diastolic murmur, rubs, systolic murmur Pulses: PRESENT: normal dorsalis pedis pul GI/Abdominal exam: PRESENT: normal bowel sounds, soft. ABSENT: distended, guarding, mass, organolmegaly, rebound, tenderness Neurological exam: PRESENT: alert, awake, oriented to person, oriented to place , oriented to time, oriented to situation, CN II-XII grossly intact. ABSENT: motor sensory deficit Skin exam: PRESENT: dry, intact, warm. ABSENT: cyanosis, rash Results Laboratory Results: 04/05/16 04:50 04/05/16 04:50 04/05/16 04/05/16 04:50 04:50 WBC 13.0 H RBC 4.30 L Hgb 12.7 L Hct 39.5 MCV 92 MCH 29.5 MCHC 32.1 RDW 15.1 H Plt Count 267 Sodium 146.3 H Potassium 3.6 Chloride 106 Carbon Dioxide 30 Anion Gap 10 BUN 23 H Creatinine 0.68 Est GFR ( Amer) > 60 Est GFR (Non-Af Amer) > 60 Glucose 115 H Calcium 9.4 Impressions: Chest X-Ray 04/02/16 14:10 IMPRESSION: Patchy predominately perihilar airspace densities are identified which could represent pneumonic infiltrates or pulmonary edema. No pleural effusions are identified. Other findings as noted above. Chest/Abdomen CTA 04/02/16 14:49 IMPRESSION: 1. No central or segmental pulmonary embolus. 2. Constellation of findings favor to represent multi focal pneumonia. 3. Small pericardial effusion. Plan Discharge Plan: Patient was discharged home to follow up with primary care physician and psych nurse At time of discharge he was stable Time Spent: Less than 30 Minutes
== END 2016-04-05 15:30 | disposition home or self-care (01) | DRG 193 ==
LOC: ER 13:23 → EH 16:48 → 3S 18:54
PROVIDERS: ADMIT Internal Medicine; ATTEND Internal Medicine
DX: J18.9 Pneumonia, unspecified organism (principal); J96.22 Acute and chronic respiratory failure with hypercapnia; J96.21 Acute and chronic respiratory failure with hypoxia; J44.1 Chronic obstructive pulmonary disease with (acute) exacerbation; E87.2 Acidosis; G47.33 Obstructive sleep apnea (adult) (pediatric); E03.9 Hypothyroidism, unspecified; D35.2 Benign neoplasm of pituitary gland; J84.89 Other specified interstitial pulmonary diseases; F17.210 Nicotine dependence, cigarettes, uncomplicated
CPT/HCPCS: 36415; 36600; 71020; 71275; 80048; 82550; 82803; 83605; 83880; 84484; 85025; 85027; 86738; 87040; 87804; 93005; 93010; 94640; 94660; 96361; 96365; 96375; 99285; J0456; J0696; J0744; J1650; J2920; J2930; J3490; J7030; J7060; J7512; J7620

== ENCOUNTER → 2016-07-08 | Outpatient (CLI) | payer MEDICAID | LOC: RAD 09:20 | PROVIDERS: ATTEND Internal Medicine Critical Care Medicine | DX: R91.8 Other nonspecific abnormal finding of lung field (principal); J45.909 Unspecified asthma, uncomplicated; R06.09 Other forms of dyspnea; R09.02 Hypoxemia; J18.9 Pneumonia, unspecified organism; R53.83 Other fatigue; G47.30 Sleep apnea, unspecified | CPT/HCPCS: 71250 ==

== ENCOUNTER 2017-08-29 08:20 | Inpatient (IN) | payer SELFPAY ==
--- NOTE | 2017-08-29 08:58 | ER Document Report ---
ED General - General Chief Complaint: General Weakness Stated Complaint: BLOOD PRESSURE ISSUES Time Seen by Provider: 08/29/17 08:37 TRAVEL OUTSIDE OF THE [place] IN LAST 30 DAYS: No - Related Data Allergies/Adverse Reactions: No Known Allergies Allergy (Verified 08/29/17 08:22) Past Medical History - Social History Family History: None Pulmonary Medical History: Reports: Hx COPD Endocrine Medical History: Reports: Hx Hypothyroidism Renal/ Medical History: Denies: Hx Peritoneal Dialysis Psychiatric Medical History: Denies: Hx Depression - Immunizations Hx Diphtheria, Pertussis, Tetanus Vaccination: No Discharge - Discharge Referrals: LOCALMD,NO [Primary Care Provider] - Follow up as needed
[2017-08-29] MEDS ORDERED: NORMAL SALINE 1000 ML 1,000 ML IV ONE ×2 (09:14→09:16)
--- NOTE | 2017-08-29 09:34 | ER Document Report ---
ED General - General Chief Complaint: General Weakness Stated Complaint: BLOOD PRESSURE ISSUES Time Seen by Provider: 08/29/17 08:37 Notes: The patient is a 51-year-old male, past medical history recently perforated ulcer that required surgery and ICU stay with discharge 1 week ago, C. difficile , pituitary adenoma, hypothyroidism, presents with 1 day of feeling weak and lightheaded. He took his blood pressure home this morning was 64/35. Patient is having copious amounts of watery diarrhea and is taking his Flagyl. Patient is also having some shortness of breath and mild leg swelling. He denies abdominal pain, fevers, back pain, chest pain, hemoptysis, cough, calf swelling , blood in his stool, urinary symptoms, headache or rash. TRAVEL OUTSIDE OF THE [place] IN LAST 30 DAYS: No - Related Data Allergies/Adverse Reactions: No Known Allergies Allergy (Verified 08/29/17 08:22) Past Medical History - General Information source: Patient - Social History Smoking Status: Former Smoker Chew tobacco use (# tins/day): No Frequency of alcohol use: None Drug Abuse: None Family History: None Patient has suicidal ideation: No Patient has homicidal ideation: No Pulmonary Medical History: Reports: Hx COPD Endocrine Medical History: Reports: Hx Hypothyroidism Renal/ Medical History: Denies: Hx Peritoneal Dialysis Psychiatric Medical History: Denies: Hx Depression Past Surgical History: Reports: Hx Abdominal Surgery - perforated ulcer repaired , Hx Orthopedic Surgery - orbital fracture - Immunizations Hx Diphtheria, Pertussis, Tetanus Vaccination: No Review of Systems - Review of Systems Notes: REVIEW OF SYSTEMS: CONSTITUTIONAL: -fevers, -chills EENT: -eye pain, -difficulty swallowing, -nasal congestion CARDIOVASCULAR: -chest pain, +near syncope. RESPIRATORY: -cough, +SOB GASTROINTESTINAL: -abdominal pain, -nausea, -vomiting, -diarrhea GENITOURINARY: -dysuria, -hematuria MUSCULOSKELETAL: -back pain, -neck pain SKIN: -rash or skin lesions. HEMATOLOGIC: -easy bruising or bleeding. LYMPHATIC: -swollen, enlarged glands. NEUROLOGICAL: -altered mental status or loss of consciousness, -headache, - neurologic symptoms PSYCHIATRIC: -anxiety, -depression. ALL OTHER SYSTEMS REVIEWED AND NEGATIVE. Physical Exam - Vital signs Vitals: Resp 15 08/29/17 08:30 - Notes Notes: PHYSICAL EXAMINATION: GENERAL: In no acute distress. HEAD: Atraumatic, normocephalic. EYES: Pupils equal round and reactive to light, extraocular movements intact, sclera anicteric, conjunctiva are normal. ENT: nares patent, oropharynx clear without exudates. Moist mucous membranes. NECK: Normal range of motion, supple without lymphadenopathy LUNGS: Breath sounds clear to auscultation bilaterally and equal. No wheezes rales or rhonchi. HEART: Regular rate and rhythm without murmurs ABDOMEN: Soft, nontender, normoactive bowel sounds. Well-healing surgical wound without drainage or surrounding erythema. No guarding, no rebound. No masses appreciated. EXTREMITIES: Normal range of motion, no pitting or edema. No cyanosis. NEUROLOGICAL: Cranial nerves grossly intact. Normal speech, normal gait. Normal sensory and motor exams. PSYCH: Normal mood, normal affect. SKIN: Warm, Dry, normal turgor, no rashes or lesions noted. Course - Re-evaluation Re-evalutation: Patient with hemoglobin of 4, which was confirmed on repeat blood work. He is also tachycardic and hypotensive. Venous access difficult to obtain and with his hypertension, patient was consented for a central line, which was successfully placed in the left IJ. With his recent ICU stay and mild tachypnea , concerned about PE, but no PE found on CTA. Patient's white count is 35.6, which is consistent with his known C. difficile infection, which is taking his Flagyl. Patient's abdomen is soft and nontender. He does not appear to have any intraabdominal pathology or surgical site infection. Patient was having mild epigastric pain yesterday and may have evidence of mild pancreatitis. Patient requires inpatient admission for further evaluation and monitoring. 08/29/17 16:[address] Spain (Surgeon), who reviewed the CT scan and examined the patient. No evidence of retroperitoneal bleed or intra-abdominal bleeding. Spoke to Dr. Maldonado who has accepted the patient to the ICU. Patient's blood pressure remained tenuous, but MAPs are over 65. He already has a central line, so will begin Levophed is his MAPs go below 65. - Vital Signs Vital signs: Temp Pulse Resp BP Pulse Ox 97.3 F 26 H 110/87 H 99 08/29/17 15:45 08/29/17 15:46 08/29/17 15:46 08/29/17 15:31 - Laboratory Result Diagrams: 08/29/17 11:20 08/29/17 09:00 Laboratory results interpreted by me: 08/29/17 08/29/17 08/29/17 09:00 09:00 09:00 WBC RBC Hgb Hct RDW Plt Count Seg Neuts % (Manual) Band Neutrophils % Lymphocytes % (Manual) Monocytes % (Manual) Myelocytes % Promyelocytes % Abs Neuts (Manual) PT 17.0 H VBG pH Chloride 112 H BUN 29 H Glucose 157 H Total Bilirubin < 0.1 L Total Protein 4.6 L Albumin 2.3 L Lipase 1084.2 H Ur Leukocyte Esterase Crossmatch 08/29/17 08/29/17 08/29/17 09:06 11:20 12:24 WBC 34.9 H* RBC 1.45 L Hgb 4.3 L* D Hct 13.0 L* RDW 14.2 H Plt Count 553 H Seg Neuts % (Manual) 80 H Band Neutrophils % 7 H Lymphocytes % (Manual) 7 L Monocytes % (Manual) 2 L Myelocytes % 2 H Promyelocytes % 1 H Abs Neuts (Manual) 31.4 H PT VBG pH 7.29 L Chloride BUN Glucose Total Bilirubin Total Protein Albumin Lipase Ur Leukocyte Esterase Crossmatch See Detail 08/29/17 13:25 WBC RBC Hgb Hct RDW Plt Count Seg Neuts % (Manual) Band Neutrophils % Lymphocytes % (Manual) Monocytes % (Manual) Myelocytes % Promyelocytes % Abs Neuts (Manual) PT VBG pH Chloride BUN Glucose Total Bilirubin Total Protein Albumin Lipase Ur Leukocyte Esterase TRACE H Crossmatch - Diagnostic Test Radiology reviewed: Image reviewed, Reports reviewed Radiology results interpreted by me: CTA Chest: No CT angio evidence of acute pulmonary emboli or thoracic aortic dissection. Since the CT exam 08/19/2017, patient has developed a trace left pleural effusion, bibasilar atelectasis, and retroperitoneal stranding around the pancreatic tail which could indicate pancreatitis. - EKG Interpretation by Me EKG shows normal: Sinus rhythm, [place], Intervals, QRS Complexes, ST-T Waves Rate: Tachycardia When compared to previous EKG there are: No significant change Procedures - Central Line Left Internal jugular Time completed: 12:02 Consent obtained: Yes Central line pre-insertion: Sterile PPE donned, Chloraprep applied, Sterile drapes applied Central line size (Fr.): 20 Central line lumen type: Triple Anesthetic type: 1% Lidocaine mL's of anesthesia: 5 Ultrasound guided: Yes CM at insertion site: 17 Line secured with sutures: Yes Central line post-insertion: Blood return from lumens, Biopatch applied, Sutured , Sterile dressing applied, Position confirmed w/ CXR Number of attempts: 1 Complications: No Critical Care Note - Critical Care Note Total time excluding time spent on procedures (mins): 85 Discharge - Discharge Clinical Impression: Clostridium difficile colitis Anemia Qualifiers: Anemia type: unspecified type Qualified Code(s): D64.9 - Anemia, unspecified Hypotension Qualifiers: Hypotension type: unspecified hypotension type Qualified Code(s): I95.9 - Hypotension, unspecified Pancreatitis Qualifiers: Chronicity: acute Pancreatitis type: unspecified pancreatitis type Acute pancreatitis complication: unspecified Qualified Code(s): K85.90 - Acute pancreatitis without necrosis or infection, unspecified Leukocytosis Qualifiers: Leukocytosis type: unspecified Qualified Code(s): D72.829 - Elevated white blood cell count, unspecified Condition: Serious Disposition: ADMITTED INPATIENT Admitting Provider: Hospitalist - Dr. Erica Dsouza Unit Admitted: ICU Referrals: LOCALMD,NO [NO LOCAL MD] - Follow up as needed
[2017-08-29 09:45] LABS: INTERNATIONAL RATION (INR) 1.32
[2017-08-29 09:47] LABS: ALANINE AMINOTRANSFERASE 28 U/L (21-72); ALBUMIN 2.3 g/dL (3.5-5.0); ALKALINE PHOSPHATASE 53 U/L (38-126); ANION GAP 7 (5-19); ASPARTATE AMINO TRANSFERASE 21 U/L (17-59); BILIRUBIN,TOTAL < 0.1 mg/dL (0.2-1.3); BLOOD UREA NITROGEN 29 mg/dL (7-20); CALCIUM 8.4 mg/dL (8.4-10.2); CARBON DIOXIDE 23 mmol/L (22-30); CHLORIDE 112 mmol/L (98-107); GLUCOSE 157 mg/dL (75-110); POTASSIUM 3.8 mmol/L (3.6-5.0); TOTAL PROTEIN 4.6 g/dL (6.3-8.2)
--- NOTE | 2017-08-29 10:19 | RADIOLOGY REPORT (SQ) ---
EXAM DESCRIPTION: CHEST SINGLE VIEW COMPLETED DATE/TIME: 08/29/2017 9:59 am REASON FOR STUDY: SOB COMPARISON: 08/26/2017 EXAM PARAMETERS: NUMBER OF VIEWS: One view. TECHNIQUE: Single frontal radiographic view of the chest acquired. RADIATION DOSE: NA LIMITATIONS: None. FINDINGS: LUNGS AND PLEURA: Continued patchy change at the left lung base with small left pleural ef fusion. MEDIASTINUM AND HILAR STRUCTURES: Stable. HEART AND VASCULAR STRUCTURES: Heart stable. No overt CHF. BONES: No acute findings. HARDWARE: None in the chest. OTHER: No other significant finding. IMPRESSION: Stable appearance, with patchy changes left base and small left pleural effusion. TECHNICAL DOCUMENTATION: JOB ID: [id number] [employer]- All Rights Reserved Reading location - IP/workstation name: [email or web address]
[2017-08-29] MEDS ORDERED: NORMAL SALINE 250 ML IV PRN ×3 (10:29→23:27)
[2017-08-29] MEDS ORDERED: OXYCODONE-ACETAMINOPHEN 5-325 MG TABLET PO ONE ×2 (10:41→15:00)
--- NOTE | 2017-08-29 11:35 | RADIOLOGY REPORT (SQ) ---
EXAM DESCRIPTION: CHEST SINGLE VIEW COMPLETED DATE/TIME: 08/29/2017 11:22 am REASON FOR STUDY: central line placement COMPARISON: AP chest 08/29/2017 at 0946 hours Chest films 08/26/2017, 08/24/2017, 08/23/2017 CT chest 07/08/2016 EXAM PARAMETERS: NUMBER OF VIEWS: One view. TECHNIQUE: Single frontal radiographic view of the chest acquired. RADIATION DOSE: NA LIMITATIONS: None. FINDINGS: LUNGS AND PLEURA: Minimal bandlike atelectasis at the left lung base. Lungs are otherwise clear. No pneumothorax post left jugular central line placement. No gross pleural effusions. MEDIASTINUM AND HILAR STRUCTURES: No masses. Contour normal. HEART AND VASCULAR STRUCTURES: Heart normal in size. Normal vasculature. BONES: No acute findings. HARDWARE: Interval placement of a left jugular central line with the tip in the superior vena cava OTHER: No other significant finding. IMPRESSION: No pneumothorax post left jugular line placement, with line tip in the superior vena cav a. Stable bandlike atelectasis left lung base TECHNICAL DOCUMENTATION: JOB ID: [id number] [employer]- All Rights Reserved Reading location - IP/workstation name: [email or web address]
[2017-08-29 11:56] LABS: MEAN CORPUSCULAR HEMOGLOBIN 29.5 pg (27.0-33.4); MEAN CORPUSCULAR VOLUME 89 fl (80-97); PLATELET COUNT 553 10^3/uL (150-450); RED BLOOD COUNT 1.45 10^6/uL (4.35-5.55); RED CELL DISTRIBUTION WIDTH 14.2 % (11.5-14.0)
[2017-08-29 12:13] LABS: HEMOGLOBIN 4.3 g/dL (13.5-17.0); WHITE BLOOD COUNT 34.9 10^3/uL (4.0-10.5)
[2017-08-29 12:29] LABS: ABSOLUTE LYMPHOCYTES# (MANUAL) 2.4 10^3/uL (0.5-4.7); ABSOLUTE MONOCYTES # (MANUAL) 0.7 10^3/uL (0.1-1.4); ABSOLUTE NEUTROPHILS# (MANUAL) 31.4 10^3/uL (1.7-8.2); BAND NEUTROPHILS % (MANUAL) 7 % (3-5); BASOPHILS % (MANUAL) 0 % (0-2); EOSINOPHILS % (MANUAL) 1 % (0-6); LYMPHOCYTES % (MANUAL) 7 % (13-45); MONOCYTES % (MANUAL) 2 % (3-13); MYELOCYTES % (MANUAL) 2 % (0); NUCLEATED RED BLOOD CELLS 3 /100 WBC (0); PROMYELOCYTES % (MANUAL) 1 % (0); SEGMENTED NEUTROPHILS % (MAN) 80 % (42-78); TOTAL CELLS COUNTED 100
[2017-08-29 12:30] LABS: PLATELET CLUMPS PRESENT; PLATELET LARGE PRESENT; POLYCHROMASIA 1+; TOXIC GRANULATION 1+
[2017-08-29 12:40] LABS: VENOUS BLOOD BASE EXCESS -5.4 mmol/L; VENOUS BLOOD HCO3 20.7 mmol/L (20-32); VENOUS BLOOD PCO2 44.4 mmHg (35-63); VENOUS BLOOD PH 7.29 (7.30-7.42)
--- NOTE | 2017-08-29 13:20 | EKG REPORT ---
SEVERITY:- BORDERLINE ECG - SINUS TACHYCARDIA BORDERLINE RIGHT AXIS DEVIATION BORDERLINE PROLONGED QT INTERVAL : Confirmed by: Casey Diego MD 29-Aug-2017 13:19:20
--- NOTE | 2017-08-29 13:42 | RADIOLOGY REPORT (SQ) ---
EXAM DESCRIPTION: CTA CHEST COMPLETED DATE/TIME: 08/29/2017 1:25 pm REASON FOR STUDY: SOB, tachycardia, tachypnea, recent ICU stay COMPARISON: CT abdomen and pelvis 08/19/2017 CT chest 07/08/2016 TECHNIQUE: CT scan of the chest performed using helical scanning technique with dynamic intravenous contrast injection. Images reviewed with lung, soft tissue and bone windows. Reconstructed coronal and sagittal MPR images reviewed. Additional 3 dimensional post-processing performed to develop Maximal Intensity Projection images (ID P). All images stored on PACS. All CT scanners at this facility use dose modulation, iterative reconstruction, and/or weight based d osing when appropriate to reduce radiation dose to as low as reasonably achievable (ALARA). [facility]: Dose Right [facility]: CareDose [facility]: Dose Right [facility]: Teradose 4D [facility]: [employer] CONTRAST TYPE AND DOSE: contrast/concentration: Isovue 370.00 mg/ml; Total Contrast Delivered: 83.0 ml; Total Saline Delivered: 90.0 ml Contrast bolus adequate for pulmonary arteries and aorta. RENAL FUNCTION: Creatinine 0.84 RADIATION DOSE: CT Rad equipment meets quality standard of care and radiation dose reduction techniq ues were employed. CTDIvol: 13.2 - 35.6 mGy. DLP: 1411 mGy-cm. . LIMITATIONS: None. FINDINGS: LUNGS AND PLEURA: No fluffy alveolar infiltrates worrisome for pneumonia or pulmonary barney a. There is minimal bibasilar bandlike atelectasis. Trace left pleural fluid. These findings are n ew compared to CT abdomen pelvis 08/19/2017. No pneumothorax. Airways are patent. AORTA AND GREAT VESSELS: No thoracic aortic aneurysm or aortic dissection. Direct origin left verteb ral artery off the aorta, an anatomic variant. Left jugular central line tip superior vena cava. HEART: Small pericardial effusion, new compared to 08/19/2017 No significant coronary artery calcificat ions. PULMONARY ARTERIES: No emboli visualized in the main pulmonary arteries or the segmental branches. HILAR AND MEDIASTINAL STRUCTURES: No identified masses or abnormal nodes. HARDWARE: Left jugular central line tip superior vena cava UPPER ABDOMEN: Go patient had recent repair of a perforated gastric ulcer. There is no lesser sac fl uid or upper abdominal free fluid. No upper abdominal free air. Mild inflammation along the tail of the pancreas, question mild pancreatitis. Multiple bilateral intrarenal nonobstructive kidney stone s less than 5 mm in size. THYROID AND OTHER SOFT TISSUES: No masses. No adenopathy. BONES: Multiple old healed bilateral posterior rib fractures. Diffuse thoracic spondylotic change. 3D MIPS: Confirm above findings. OTHER: Findings discussed with Dr. Eagle IMPRESSION: No CT angio evidence of acute pulmonary emboli or thoracic aortic dissection Since the CT exam 08/19/2017, patient has developed a trace left pleural effusion, bibasilar atelectasi s, and retroperitoneal stranding around the pancreatic tail which could indicate pancreatitis COMMENT: Quality ID # [id number]: Final reports with documentation of one or more dose reduction techniques (e.g., Automated exposure control, adjustment of the mA and/or kV according to patient size, use of iterative reconstruction technique) TECHNICAL DOCUMENTATION: JOB ID: [id number]- All Rights Reserved Reading location - IP/workstation name: [email or web address]
[2017-08-29 14:03] LABS: APPEARANCE,URINE CLEAR; BILIRUBIN,URINE NEGATIVE (NEGATIVE); COLOR,URINE YELLOW; GLUCOSE, URINE NEGATIVE (NEGATIVE); KETONES,URINE NEGATIVE (NEGATIVE); LEUKOCYTE ESTERASE,URINE TRACE (NEGATIVE); NITRITE,URINE NEGATIVE (NEGATIVE); PROTEIN,URINE NEGATIVE (NEGATIVE); URINE SPECIFIC GRAVITY 1.026; UROBILINOGEN,URINE NEGATIVE mg/dL (<2.0)
[2017-08-29] MEDS ORDERED: ACETAMINOPHEN 325 MG TABLET PO PRN (15:53)
[2017-08-29] MEDS ORDERED: ONDANSETRON HCL INJ/PF 4 MG/2 ML SDV IV PRN (15:53)
[2017-08-29] MEDS ORDERED: ONDANSETRON 4 MG TAB.RAPDIS PO PRN (15:53)
[2017-08-29] MEDS ORDERED: PANTOPRAZOLE SODIUM 40 MG VIAL IV PRN (15:59)
--- NOTE | 2017-08-29 16:38 | PDOC H&P ---
History of Present Illness Admission Date/PCP: August 29, 2017 No PCP Inbound Sales Representative: Dr. Willow Fofana in [place] Patient complains of: Weakness and hypotension History of Present Illness: The patient is a 51-year-old gentleman with a past medical history of Pituitary adenoma Hypothyroidism Nicotine dependence COPD Obstructive sleep apnea He presented to the hospital on August 19 with acute onset abdominal pain and was found to have a perforated gastric ulcer which was repaired on the same day. Postoperatively he remained in the intensive care unit on the ventilator. On postop day 5 he had an oral Gastrografin study done which showed no evidence of gastric leak with satisfactory reflux of contrast into the duodenum. NG tube was removed and he tolerated a diet well. The patient had persisting leukocytosis and loose stools and was positive for C. difficile. He was discharged with Flagyl. His leukocytosis was improving and hemoglobin was 8.7. The patient presented back to the hospital today with weakness and systolic blood pressure reportedly in the 60s when he checked them at home. His hemoglobin is 4.3 and WBC count is 34,000. He was evaluated by the surgical service in the emergency room and they have recommended blood transfusions and close monitoring. CAT scan of the chest was done to rule out pulmonary embolism which was negative. The abdominal images were reviewed by Dr. Spain and negative for any bleeding. 3 units of PRBC were ordered of which he has received 2 units. Home medications: Synthroid 224 mcg daily Cabergoline 0.25 mg on Tuesdays and Fridays Flagyl 500 mg p.o. every 8 hours The patient denies any chest pain abdominal pain or vomiting. He has had black stools but no brigida hematochezia. Past Medical History Pulmonary Medical History: Reports: Chronic Obstructive Pulmonary Disease (COPD) Endocrine Medical History: Reports: Hypothyroidism Malignancy Medical History: Reports: Other - Pituitary tumor Past Surgical History Past Surgical History: Reports: Orthopedic Surgery - orbital fracture, Other - Repair of perforated gastric ulcer Social History Information Source: Patient Smoking Status: Current Every Day Smoker Frequency of Alcohol Use: None Hx Recreational Drug Use: No Drugs: None Hx Prescription Drug Abuse: No Family History Family History: Hypertension Parental Family History Reviewed: Yes Children Family History Reviewed: Yes Sibling(s) Family History Reviewed.: Yes Medication/Allergy Home Medications: Cabergoline [Cabergoline 0.5 mg Tablet] 0.25 mg PO TUFR@1000 08/19/17 Levothyroxine Sodium [Synthroid 0.112 mg Tablet] 0.224 mg PO DAILY 08/19/17 Metronidazole [Flagyl 500 mg Tablet] 500 mg PO TID 08/29/17 Oxycodone HCl/Acetaminophen [Percocet 5-325 mg Tablet] 1 tab PO PRN PRN Allergies/Adverse Reactions: No Known Allergies Allergy (Verified 08/29/17 08:22) Review of Systems Constitutional: PRESENT: weakness. ABSENT: fever(s) Eyes: ABSENT: visual disturbances Ears: ABSENT: hearing changes Nose, Mouth, and Throat: ABSENT: sore throat Cardiovascular: ABSENT: chest pain, edema Respiratory: ABSENT: cough, dyspnea Gastrointestinal: PRESENT: melena. ABSENT: abdominal pain, hematemesis, hematochezia, vomiting Genitourinary: ABSENT: dysuria Musculoskeletal: ABSENT: joint swelling Integumentary: ABSENT: rash Neurological: ABSENT: focal weakness Psychiatric: ABSENT: hallucinations Endocrine: ABSENT: heat intolerance Hematologic/Lymphatic: ABSENT: easy bruising Allergic/Immunologic: ABSENT: seasonal rhinorrhea Physical Exam Vital Signs: Temp Pulse Resp BP Pulse Ox 97.3 F 26 H 110/87 H 99 08/29/17 15:45 08/29/17 15:46 08/29/17 15:46 08/29/17 15:31 Intake & Output 08/28/17 08/29/17 08/30/17 06:59 06:59 06:59 Intake Total 750 Balance 750 General appearance: PRESENT: no acute distress, well-developed, well-nourished Head exam: PRESENT: normocephalic Ear exam: PRESENT: normal external ear exam Mouth exam: PRESENT: moist Neck exam: ABSENT: tracheal deviation Respiratory exam: PRESENT: rhonchi, symmetrical, unlabored. ABSENT: wheezes Cardiovascular exam: PRESENT: RRR GI/Abdominal exam: PRESENT: normal bowel sounds, soft. ABSENT: tenderness Rectal exam: PRESENT: deferred Gentrourinary exam: ABSENT: indwelling catheter Extremities exam: ABSENT: pedal edema Musculoskeletal exam: PRESENT: full ROM Neurological exam: PRESENT: alert, awake, oriented to person, oriented to place , oriented to time, oriented to situation Psychiatric exam: PRESENT: appropriate affect Skin exam: ABSENT: petechiae Results Laboratory Results: 08/29/17 11:20 08/29/17 09:00 08/29/17 08/29/17 08/29/17 09:00 09:00 09:00 WBC Cancelled RBC Cancelled Hgb Cancelled Hct Cancelled MCV Cancelled MCH Cancelled MCHC Cancelled RDW Cancelled Plt Count Cancelled Seg Neutrophils % Cancelled Lymphocytes % Cancelled Monocytes % Cancelled Eosinophils % Cancelled Basophils % Cancelled Absolute Neutrophils Cancelled Absolute Lymphocytes Cancelled Absolute Monocytes Cancelled Absolute Eosinophils Cancelled Absolute Basophils Cancelled VBG pH VBG pCO2 VBG HCO3 VBG Base Excess Sodium 142.0 Potassium 3.8 Chloride 112 H Carbon Dioxide 23 Anion Gap 7 BUN 29 H Creatinine 0.98 Est GFR ( Amer) > 60 Est GFR (Non-Af Amer) > 60 Glucose 157 H Lactic Acid 1.4 Calcium 8.4 Total Bilirubin < 0.1 L AST 21 ALT 28 Alkaline Phosphatase 53 Total Protein 4.6 L Albumin 2.3 L Lipase Urine Color Urine Appearance Urine pH Ur Specific [place] Urine Protein Urine Glucose (UA) Urine Ketones Urine Blood Urine Nitrite Ur Leukocyte Esterase Urine WBC (Auto) Urine RBC (Auto) Stool Occult Blood Blood Type Antibody Screen 08/29/17 08/29/17 08/29/17 09:00 09:06 11:20 WBC 34.9 H* RBC 1.45 L Hgb 4.3 L* D Hct 13.0 L* MCV 89 MCH 29.5 MCHC 33.0 RDW 14.2 H Plt Count 553 H Seg Neutrophils % Not Reportable Lymphocytes % Not Reportable Monocytes % Not Reportable Eosinophils % Not Reportable Basophils % Not Reportable Absolute Neutrophils Not Reportable Absolute Lymphocytes Not Reportable Absolute Monocytes Not Reportable Absolute Eosinophils Not Reportable Absolute Basophils Not Reportable VBG pH VBG pCO2 VBG HCO3 VBG Base Excess Sodium Potassium Chloride Carbon Dioxide Anion Gap BUN Creatinine Est GFR ( Amer) Est GFR (Non-Af Amer) Glucose Lactic Acid Calcium Total Bilirubin AST ALT Alkaline Phosphatase Total Protein Albumin Lipase 1084.2 H Urine Color Urine Appearance Urine pH Ur Specific [place] Urine Protein Urine Glucose (UA) Urine Ketones Urine Blood Urine Nitrite Ur Leukocyte Esterase Urine WBC (Auto) Urine RBC (Auto) Stool Occult Blood Blood Type O POSITIVE Antibody Screen NEGATIVE 08/29/17 08/29/17 08/29/17 12:24 13:25 13:25 WBC RBC Hgb Hct MCV MCH MCHC RDW Plt Count Seg Neutrophils % Lymphocytes % Monocytes % Eosinophils % Basophils % Absolute Neutrophils Absolute Lymphocytes Absolute Monocytes Absolute Eosinophils Absolute Basophils VBG pH 7.29 L VBG pCO2 44.4 VBG HCO3 20.7 VBG Base Excess -5.4 Sodium Potassium Chloride Carbon Dioxide Anion Gap BUN Creatinine Est GFR ( Amer) Est GFR (Non-Af Amer) Glucose Lactic Acid Calcium Total Bilirubin AST ALT Alkaline Phosphatase Total Protein Albumin Lipase Urine Color YELLOW Urine Appearance CLEAR Urine pH 6.0 Ur Specific [place] 1.026 Urine Protein NEGATIVE Urine Glucose (UA) NEGATIVE Urine Ketones NEGATIVE Urine Blood NEGATIVE Urine Nitrite NEGATIVE Ur Leukocyte Esterase TRACE H Urine WBC (Auto) 5 Urine RBC (Auto) 1 Stool Occult Blood POSITIVE Blood Type Antibody Screen Impressions: Chest/Abdomen CTA 08/29/17 09:15 IMPRESSION: No CT angio evidence of acute pulmonary emboli or thoracic aortic dissection Since the CT exam 08/19/2017, patient has developed a trace left pleural effusion , bibasilar atelectasis, and retroperitoneal stranding around the pancreatic tail which could indicate pancreatitis Chest X-Ray 08/29/17 11:03 IMPRESSION: No pneumothorax post left jugular line placement, with line tip in the superior vena cava. Stable bandlike atelectasis left lung base Assessment & Plan - Diagnosis (1) Severe anemia Is this a current diagnosis for this admission?: Yes Plan: 3 units of packed red blood cells ordered. Continue to monitor hemoglobin and transfuse as needed to keep hemoglobin 8 or above. (2) Hypotension Is this a current diagnosis for this admission?: Yes Plan: Monitor closely in the ICU. IV fluids blood transfusions. (3) Upper GI bleed Is this a current diagnosis for this admission?: Yes Plan: N.p.o. except for ice chips. Surgical consult. IV Protonix drip (4) C. difficile diarrhea Is this a current diagnosis for this admission?: Yes Plan: IV Flagyl and p.o. vancomycin. (5) Hypothyroidism Is this a current diagnosis for this admission?: Yes Plan: Continue Synthroid (6) Pituitary tumor Is this a current diagnosis for this admission?: Yes Plan: Continue cabergoline (7) DVT prophylaxis Is this a current diagnosis for this admission?: Yes Plan: Sequential teds. (8) COPD (chronic obstructive pulmonary disease) with emphysema Qualifiers: Emphysema type: centrilobular Qualified Code(s): J43.2 - Centrilobular emphysema Is this a current diagnosis for this admission?: Yes Plan: Nebs as needed. Not in exacerbation. - Time Time Spent: Greater than 70 Minutes - Inpatient Certification Medical Necessity: Need Close Monitoring Due to Risk of Patient Decompensation, Risk of Complication if Not Cared For in Hospital
[2017-08-29] MEDS: METRONIDAZOLE 500 MG/NS RTU 100 ML IV SCH (17:41)
[2017-08-29] MEDS: NORMAL SALINE 100 ML with PANTOPRAZOLE SODIUM 80 MG IV PRN ×2 (17:41)
[2017-08-29] MEDS: VANCOMYCIN HCL INJ 500 MG VIAL PO SCH (17:42)
[2017-08-29] MEDS: POTASSI CL 20 MEQ/NS 1L 1,000 ML IV PRN (17:42)
[2017-08-29] MEDS: MORPHINE SULFATE 10 MG/ML INJ IV PRN ×2 (18:02→22:18)
[2017-08-29] MEDS ORDERED: METOCLOPRAMIDE HCL INJ/PF 10 MG/2 ML SDV IV ONE (23:20)
[2017-08-29] MEDS ORDERED: METOCLOPRAMIDE HCL INJ/PF 10 MG/2 ML SDV ONE (23:21)
[2017-08-29] MEDS ORDERED: OCTREOTIDE ACETATE INJ/PF 100 MCG/1 ML SDV IV ONE (23:32)
--- NOTE | 2017-08-30 00:06 | PDOC CONSULTATION ---
Consultation Consult Date: 08/29/17 Consult reason:: Upper GI bleeding, status post perforated gastric ulcer repair. History of Present Illness Admission Date/PCP: 08/29/17 16:53 Patient complains of: Anemia, weakness History of Present Illness: JOSEPH CAREY is a 51 year old male seen at the request of the hospitalist service for consultation. This is a 51-year-old male who is approximately 1 week status post laparotomy and repair of a perforated gastric ulcer. The patient was discharged home approximately 48 hours ago. The patient began having weakness yesterday at home. He had an episode of orthostasis today, and re-presented to the emergency department for evaluation. His hemoglobin was found to be 4.3, he was tachycardic, and he was hypotensive. Patient received 3 units of packed red blood cells, and his vitals stabilized. Patient is being admitted to the hospitalist service. Patient denies chest pain, shortness of breath, fevers, chills, abdominal pain, nausea, vomiting, melena, hematochezia, hematemesis. He does report blurry vision, orthostasis, malaise. Past Medical History Pulmonary Medical History: Reports: Chronic Obstructive Pulmonary Disease (COPD) Endocrine Medical History: Reports: Hypothyroidism Malignancy Medical History: Reports: Other - Pituitary tumor GI Medical History: Reports: Peptic Ulcer Disease Psychiatric Medical History: Denies: Depression Past Surgical History Past Surgical History: Reports: Orthopedic Surgery - orbital fracture, Other - Repair of perforated gastric ulcer Social History Smoking Status: Current Every Day Smoker Frequency of Alcohol Use: None Hx Recreational Drug Use: No Drugs: None Hx Prescription Drug Abuse: No Family History Family History: Hypertension Parental Family History Reviewed: Yes Children Family History Reviewed: Yes Sibling(s) Family History Reviewed.: Yes Medication/Allergy Home Medications: Cabergoline [Cabergoline 0.5 mg Tablet] 0.25 mg PO TUFR@1000 08/19/17 Levothyroxine Sodium [Synthroid 0.112 mg Tablet] 0.224 mg PO DAILY 08/19/17 Metronidazole [Flagyl 500 mg Tablet] 500 mg PO TID 08/29/17 Oxycodone HCl/Acetaminophen [Percocet 5-325 mg Tablet] 1 tab PO PRN PRN Allergies/Adverse Reactions: No Known Allergies Allergy (Verified 08/29/17 08:22) Review of Systems Constitutional: PRESENT: fatigue. ABSENT: chills, fever(s) Eyes: PRESENT: visual disturbances Ears: ABSENT: hearing changes Nose, Mouth, and Throat: ABSENT: sore throat Cardiovascular: ABSENT: chest pain, palpitations Respiratory: ABSENT: cough, dyspnea Gastrointestinal: PRESENT: diarrhea. ABSENT: abdominal pain, bloating, coffee ground emesis, hematemesis, hematochezia, melena, nausea, vomiting Genitourinary: ABSENT: dysuria Integumentary: ABSENT: pruritus, rash Neurological: PRESENT: dizziness, syncope. ABSENT: confusion Psychiatric: ABSENT: anxiety, depression, hallucinations Endocrine: ABSENT: cold intolerance, heat intolerance Hematologic/Lymphatic: ABSENT: easy bleeding, easy bruising Physical Exam Vital Signs: Temp Pulse Resp BP Pulse Ox 97.9 F 19 103/53 L 99 08/29/17 16:45 08/29/17 16:46 08/29/17 16:46 08/29/17 16:46 Intake & Output 08/28/17 08/29/17 08/30/17 06:59 06:59 06:59 Weight 117.027 kg General appearance: PRESENT: mild distress Head exam: PRESENT: atraumatic, normocephalic Eye exam: PRESENT: EOMI, PERRLA. ABSENT: scleral icterus Mouth exam: PRESENT: neck supple Neck exam: ABSENT: lymphadenopathy, meningismus, tenderness, thyromegaly, tracheal deviation Respiratory exam: PRESENT: clear to auscultation miguel ángel, unlabored. ABSENT: chest wall tenderness, rales, stridor, tachypnea Cardiovascular exam: PRESENT: tachycardia - Mild Pulses: PRESENT: normal radial pulses Vascular exam: PRESENT: pallor GI/Abdominal exam: PRESENT: soft. ABSENT: distended, tenderness Rectal exam: PRESENT: deferred Extremities exam: ABSENT: tenderness Musculoskeletal exam: PRESENT: normal inspection Neurological exam: PRESENT: alert, awake, oriented to person, oriented to place , oriented to time, oriented to situation, CN II-XII grossly intact. ABSENT: motor sensory deficit Psychiatric exam: ABSENT: agitated, anxious, depressed Skin exam: PRESENT: pallor. ABSENT: cyanosis, erythema, jaundice, normal color Results Impressions: Chest/Abdomen CTA 08/29/17 09:15 IMPRESSION: No CT angio evidence of acute pulmonary emboli or thoracic aortic dissection Since the CT exam 08/19/2017, patient has developed a trace left pleural effusion , bibasilar atelectasis, and retroperitoneal stranding around the pancreatic tail which could indicate pancreatitis Chest X-Ray 08/29/17 11:03 IMPRESSION: No pneumothorax post left jugular line placement, with line tip in the superior vena cava. Stable bandlike atelectasis left lung base Assessment & Plan - Diagnosis (1) Anemia Qualifiers: Anemia type: other cause Other causes of anemia: acute posthemorrhagic Qualified Code(s): D62 - Acute posthemorrhagic anemia Is this a current diagnosis for this admission?: Yes - Plan Summary Plan Summary: This is a 51-year-old male known peptic ulcer disease. He underwent laparotomy and repair of a perforated gastric ulcer. The patient returns to the hospital with a hemoglobin of 4.3. The patient has no venous signs of acute, active bleeding. I have reviewed the patient's CT angiogram which does not show a blush in the stomach. Patient has not had any melena, hematochezia, or hematemesis. He is receiving packed red blood cells now. He is being admitted to the medicine service. I have recommended very close observation for this patient. If he exhibits any signs of continued blood loss, he may require EGD and/or operative intervention. This is been discussed with the patient. I will follow this patient very closely with you.
--- NOTE | 2017-08-30 00:08 | Progress Note ---
Provider Note Provider Note: Called to see the patient regarding hematemesis. The patient had a large volume hematemesis while moving to the ICU. Patient is already on a Protonix drip. We are starting a Sandostatin drip at this time. I have ordered 2 units of packed red blood cells and 2 units of fresh frozen plasma. Plan for EGD to identify the source of the bleeding with possible intervention. If his bleeding cannot be stopped with endoscopic methods, the patient may require repeat laparotomy. Risks/benefits discussed, informed consent obtained, and all questions answered.
[2017-08-30] MEDS ORDERED: PROPOFOL INJ 200 MG/20 ML VIAL IV ONE (00:39)
[2017-08-30] MEDS ORDERED: FENTANYL CITRATE INJ/PF 100 MCG/2 ML AMPUL ONE ×2 (00:39→17:11)
[2017-08-30] MEDS ORDERED: FENTANYL CITRATE INJ/PF 250 MCG/5 ML AMPULE ONE (00:39)
[2017-08-30] MEDS ORDERED: EPHEDRINE SULFATE INJ 50 MG/1 ML AMPULE ONE (00:39)
[2017-08-30] MEDS ORDERED: PROPOFOL 1,000 MG/100 ML INFUS..BTL IV ONE (02:00)
[2017-08-30] MEDS ORDERED: EPINEPHRINE INJ 1 MG/10 ML DISP.SYRIN ONE ×2 (02:04→17:11)
--- NOTE | 2017-08-30 02:29 | Operative Report ---
Nonrecallable Operative Report DATE OF SURGERY: 08/30/17 PREOPERATIVE DIAGNOSIS: Upper GI bleeding POSTOPERATIVE DIAGNOSIS: Visible blood vessel in the area of previous gastric ulcer repair OPERATION: 1. EGD. 2. Submucosal injection of epinephrine at bleeding site. 3. Cauterization of bleeding vessel. 4. Endoscopic clip placement 2 SURGEON: SABIHA FAROOQ ANESTHESIA: GA TISSUE REMOVED OR ALTERED: None COMPLICATIONS: None apparent ESTIMATED BLOOD LOSS: Old clot within the stomach PROCEDURE: Drains/implants none. Procedure in detail: After informed consent was obtained, the patient was brought into the operating room and laid in the supine position. After general endotracheal anesthesia was attained, the endoscope was passed down the oropharynx, down the esophagus, and into the stomach. There was a large clot in the cardia of the stomach. This was removed via a Melo net. The scope was passed into the stomach. The stomach was irrigated, suctioned, and inspected. No visible vessels or active bleeding could be identified in the cardia, fundus , or gastric body. In the antrum, at the area of previous repair, there was a small visible vessel with clot around it. This appeared to be in the anterior stomach in the immediately prepyloric position. This was irrigated and washed. The small visible vessel that was felt to be the most likely cause of his upper GI bleeding. Epinephrine was injected submucosally around the lesion. The lesion was then cauterized significantly. Resolution clips were placed proximally and distally at the area of bleeding. This halted the bleeding successfully. The scope was passed into the duodenum. No bleeding could be identified in the first or second portion. The scope was pulled back into the esophagus. The esophagus was smooth in contour without any evidence of bleeding. Once this was confirmed, the scope was removed. The procedure was concluded. All sponge, instrument, and needle counts were correct 2. Condition: Fair.
[2017-08-30] MEDS: METRONIDAZOLE 500 MG/NS RTU 100 ML IV SCH ×4 (03:00→18:28)
[2017-08-30] MEDS: VANCOMYCIN HCL INJ 500 MG VIAL PO SCH ×3 (03:00→13:44)
[2017-08-30] MEDS ORDERED: OCTREOTIDE ACETATE INJ/PF 100 MCG/1 ML SDV ONE ×2 (03:11→03:22)
[2017-08-30] MEDS: POTASSI CL 20 MEQ/NS 1L 1,000 ML IV PRN ×2 (03:23→17:30)
[2017-08-30] MEDS ORDERED: PROPOFOL 1,000 MG/100 ML INFUS..BTL IV PRN (04:23)
[2017-08-30] MEDS ORDERED: VANCOMYCIN HCL INJ 500 MG VIAL ONE (05:35)
[2017-08-30] MEDS: MORPHINE SULFATE 10 MG/ML INJ IV PRN ×2 (06:02→10:34)
[2017-08-30 07:12] LABS: HEMATOCRIT 19.9 % (37.9-51.0); MEAN CORPUSCULAR HEMOGLOBIN 29.4 pg (27.0-33.4); MEAN CORPUSCULAR HGB CONC 33.7 g/dL (32.0-36.0); MEAN CORPUSCULAR VOLUME 88 fl (80-97); PLATELET COUNT 397 10^3/uL (150-450); RED BLOOD COUNT 2.28 10^6/uL (4.35-5.55); RED CELL DISTRIBUTION WIDTH 14.3 % (11.5-14.0)
[2017-08-30 07:16] LABS: HEMOGLOBIN 6.7 g/dL (13.5-17.0)
[2017-08-30 07:39] LABS: ALANINE AMINOTRANSFERASE 34 U/L (21-72); ALBUMIN 2.2 g/dL (3.5-5.0); ALKALINE PHOSPHATASE 47 U/L (38-126); ANION GAP 6 (5-19); ASPARTATE AMINO TRANSFERASE 20 U/L (17-59); BILIRUBIN,DIRECT 0.1 mg/dL (0.0-0.4); BILIRUBIN,TOTAL 0.2 mg/dL (0.2-1.3); BLOOD UREA NITROGEN 26 mg/dL (7-20); CALCIUM 7.9 mg/dL (8.4-10.2); CARBON DIOXIDE 23 mmol/L (22-30); CHLORIDE 115 mmol/L (98-107); GLUCOSE 136 mg/dL (75-110); PHOSPHORUS 4.2 mg/dL (2.5-4.5); POTASSIUM 4.3 mmol/L (3.6-5.0); SODIUM 144.4 mmol/L (137-145); TOTAL PROTEIN 4.4 g/dL (6.3-8.2)
[2017-08-30 07:46] LABS: WHITE BLOOD COUNT 29.1 10^3/uL (4.0-10.5)
--- NOTE | 2017-08-30 08:20 | PDOC PROGRESS REPORT ---
Subjective Progress Note for:: 08/30/17 Subjective:: The patient is a 51-year-old gentleman with a past medical history of Pituitary adenoma Hypothyroidism Nicotine dependence COPD Obstructive sleep apnea He was discharged on August 27 after perforated gastric ulcer repair. During that hospital stay he was also treated for C. difficile diarrhea. The patient presented back to the hospital on August 29 with melena and severe anemia. He received 3 units of packed red blood cells and was seen in consultation by the surgical service. He developed some hematemesis overnight and an endoscopy was done by Dr. [place]. He was intubated during the procedure and was extubated early this morning. He was transfused 2 more units of blood and was also given FFP A large clot was found in the cardia of the stomach and was removed. The stomach was irrigated suctioned and inspected. In the antrum at the area of previous repair there was a small visible vessel with clot around it which was irrigated and epinephrine was injected submucosally and then cauterized. Resolution clips were placed proximally and distally which halted the bleeding. No bleeding was seen in the first or second part of the duodenum. He is sitting up in bed. Is complaining of some sore throat. No abdominal pain or nausea. Reason For Visit: GI BLEED ANEMIA,HYPOTENSION Physical Exam Vital Signs: Temp Pulse Resp BP Pulse Ox 99.5 F 93 18 118/73 97 08/30/17 06:11 08/30/17 04:59 08/30/17 06:45 08/30/17 06:11 08/30/17 06:11 Intake & Output 08/29/17 08/30/17 08/31/17 06:59 06:59 06:59 Intake Total 350 300 Output Total 800 Balance -450 300 Weight 118.6 kg General appearance: PRESENT: no acute distress, well-developed, well-nourished Respiratory exam: PRESENT: symmetrical, unlabored. ABSENT: wheezes Cardiovascular exam: PRESENT: RRR GI/Abdominal exam: PRESENT: normal bowel sounds, soft, tenderness Rectal exam: PRESENT: deferred Extremities exam: ABSENT: pedal edema Neurological exam: PRESENT: alert, awake, oriented to person, oriented to place , oriented to time, oriented to situation Psychiatric exam: PRESENT: appropriate affect Results Laboratory Results: 08/30/17 06:56 08/30/17 06:56 08/30/17 08/30/17 06:56 06:56 WBC 29.1 H RBC 2.28 L Hgb 6.7 L D Hct 19.9 L MCV 88 MCH 29.4 MCHC 33.7 RDW 14.3 H Plt Count 397 Sodium 144.4 Potassium 4.3 Chloride 115 H Carbon Dioxide 23 Anion Gap 6 BUN 26 H Creatinine 0.92 Est GFR ( Amer) > 60 Est GFR (Non-Af Amer) > 60 Glucose 136 H Calcium 7.9 L Phosphorus 4.2 Magnesium 2.1 Total Bilirubin 0.2 AST 20 ALT 34 Alkaline Phosphatase 47 Total Protein 4.4 L Albumin 2.2 L Impressions: Chest/Abdomen CTA 08/29/17 09:15 IMPRESSION: No CT angio evidence of acute pulmonary emboli or thoracic aortic dissection Since the CT exam 08/19/2017, patient has developed a trace left pleural effusion , bibasilar atelectasis, and retroperitoneal stranding around the pancreatic tail which could indicate pancreatitis Chest X-Ray 08/29/17 11:03 IMPRESSION: No pneumothorax post left jugular line placement, with line tip in the superior vena cava. Stable bandlike atelectasis left lung base Assessment & Plan - Diagnosis (1) Severe anemia Is this a current diagnosis for this admission?: Yes Plan: He has received a total of 5 units of packed red blood cells and 2 units of FFP since admission. Continue to monitor hemoglobin and transfuse as needed to keep hemoglobin 8 or above. (2) Hypotension Is this a current diagnosis for this admission?: Yes Plan: Resolved. Continue to monitor. (3) Upper GI bleed Is this a current diagnosis for this admission?: Yes Plan: Bleeding vessel in the antrum status post epinephrine injections cautery and clips. N.p.o. except for ice chips. Management per surgery service. IV Protonix drip. (4) C. difficile diarrhea Is this a current diagnosis for this admission?: Yes Plan: IV Flagyl and p.o. vancomycin. (5) Hypothyroidism Is this a current diagnosis for this admission?: Yes Plan: Continue Synthroid (6) Pituitary tumor Is this a current diagnosis for this admission?: Yes Plan: Continue cabergoline (7) DVT prophylaxis Is this a current diagnosis for this admission?: Yes Plan: Sequential teds. (8) COPD (chronic obstructive pulmonary disease) with emphysema Qualifiers: Emphysema type: centrilobular Qualified Code(s): J43.2 - Centrilobular emphysema Is this a current diagnosis for this admission?: Yes Plan: Nebs as needed. Not in exacerbation. - Time Time Spent with patient: 35 or more minutes
[2017-08-30] MEDS ORDERED: LEVOTHYROXINE SODIUM 0.112 MG TABLET PO SCH (10:00)
[2017-08-30] MEDS ORDERED: ONDANSETRON HCL INJ/PF 4 MG/2 ML SDV IV PRN (10:30)
[2017-08-30] MEDS ORDERED: ONDANSETRON 4 MG TAB.RAPDIS PO PRN (10:30)
--- NOTE | 2017-08-30 11:10 | PDOC PROGRESS REPORT ---
Subjective Progress Note for:: 08/30/17 Subjective:: Moderate abdominal pain. No more bowel movements since last night. Feels weak but otherwise okay. Reason For Visit: GI BLEED ANEMIA,HYPOTENSION Physical Exam Vital Signs: Temp Pulse Resp BP Pulse Ox 99.1 F 86 18 94/61 L 100 08/30/17 10:10 08/30/17 10:10 08/30/17 10:10 08/30/17 10:10 08/30/17 10:10 Intake & Output 08/29/17 08/30/17 08/31/17 06:59 06:59 06:59 Intake Total 350 613 Output Total 800 200 Balance -450 413 Weight 118.6 kg General appearance: PRESENT: no acute distress, cooperative Respiratory exam: PRESENT: rhonchi Cardiovascular exam: PRESENT: RRR GI/Abdominal exam: PRESENT: other - Protuberant, soft, mild epigastric abdominal tenderness without peritoneal signs. Wound clean dry and intact Skin exam: PRESENT: warm Results Laboratory Results: 08/30/17 06:56 08/30/17 06:56 08/30/17 08/30/17 08/30/17 06:56 06:56 06:56 WBC 29.1 H RBC 2.28 L Hgb 6.7 L D Hct 19.9 L MCV 88 MCH 29.4 MCHC 33.7 RDW 14.3 H Plt Count 397 Sodium 144.4 Potassium 4.3 Chloride 115 H Carbon Dioxide 23 Anion Gap 6 BUN 26 H Creatinine 0.92 Est GFR ( Amer) > 60 Est GFR (Non-Af Amer) > 60 Glucose 136 H Calcium 7.9 L Phosphorus 4.2 Magnesium 2.1 Total Bilirubin 0.2 AST 20 ALT 34 Alkaline Phosphatase 47 Total Protein 4.4 L Albumin 2.2 L TSH 12.60 H 08/30/17 06:56 NT-Pro-B Natriuret Pep 60 Impressions: Chest/Abdomen CTA 08/29/17 09:15 IMPRESSION: No CT angio evidence of acute pulmonary emboli or thoracic aortic dissection Since the CT exam 08/19/2017, patient has developed a trace left pleural effusion , bibasilar atelectasis, and retroperitoneal stranding around the pancreatic tail which could indicate pancreatitis Chest X-Ray 08/29/17 11:03 IMPRESSION: No pneumothorax post left jugular line placement, with line tip in the superior vena cava. Stable bandlike atelectasis left lung base Assessment & Plan - Diagnosis (1) Gastrointestinal bleeding, upper Is this a current diagnosis for this admission?: Yes Plan: Status post endoscopic treatment of prepyloric ulcer bleed. Pending follow-up hematocrit after his last transfusion. His hematocrit did increase with transfusions. He appears hemodynamically stable. I do not think he is actively bleeding at this time. But will follow very closely. Continue proton pump inhibitor. Keep n.p.o. (2) Pancreatitis Qualifiers: Chronicity: acute Is this a current diagnosis for this admission?: Yes Plan: We will keep patient at bowel rest. Supportive care.
[2017-08-30] MEDS: NORMAL SALINE 100 ML with PANTOPRAZOLE SODIUM 80 MG IV PRN ×4 (12:23→21:18)
[2017-08-30 12:58] LABS: HEMATOCRIT 18.5 % (37.9-51.0); MEAN CORPUSCULAR HEMOGLOBIN 29.1 pg (27.0-33.4); MEAN CORPUSCULAR HGB CONC 33.2 g/dL (32.0-36.0); MEAN CORPUSCULAR VOLUME 88 fl (80-97); PLATELET COUNT 391 10^3/uL (150-450); RED BLOOD COUNT 2.11 10^6/uL (4.35-5.55); RED CELL DISTRIBUTION WIDTH 14.4 % (11.5-14.0)
[2017-08-30 13:11] LABS: PATH REVIEW PATHOLOGIST REVIEWED
[2017-08-30] MEDS ORDERED: SUCCINYLCHOLINE CHLORIDE INJ 200 MG/10 ML VIAL ONE (13:23)
[2017-08-30] MEDS ORDERED: ROCURONIUM BROMIDE INJ 50 MG/5 ML VIAL IV ONE (13:23)
[2017-08-30 13:26] LABS: WHITE BLOOD COUNT 28.4 10^3/uL (4.0-10.5)
[2017-08-30 13:27] LABS: HEMOGLOBIN 6.1 g/dL (13.5-17.0)
[2017-08-30] MEDS ORDERED: NORMAL SALINE 250 ML IV PRN ×2 (13:57)
[2017-08-30] MEDS: NORMAL SALINE 500 ML with OCTREOTIDE ACETATE 500 MCG IV PRN ×4 (14:57→22:46)
[2017-08-30] MEDS ORDERED: LEVOTHYROXINE SODIUM INJ/PF 0.1 MG SDV IV ONE (15:00)
[2017-08-30] MEDS: FENTANYL CITRATE INJ/PF 100 MCG/2 ML AMPUL IV PRN ×2 (15:29→21:24)
[2017-08-30] MEDS ORDERED: FUROSEMIDE INJ/PF 20 MG/2 ML SDV ONE (16:27)
[2017-08-30] MEDS ORDERED: ONDANSETRON HCL INJ/PF 4 MG/2 ML SDV ONE (17:10)
[2017-08-30] MEDS ORDERED: NALOXONE HCL INJ/PF 0.4 MG/1 ML SDV ONE (17:10)
[2017-08-30] MEDS ORDERED: DIPHENHYDRAMINE HCL 50 MG/ML VIAL ONE (17:10)
[2017-08-30] MEDS ORDERED: GLUCAGON,HUMAN RECOMB 1 MG INJ ONE (17:11)
[2017-08-30] MEDS ORDERED: MIDAZOLAM 2 MG/2 ML INJ ONE (17:11)
[2017-08-30] MEDS ORDERED: FLUMAZENIL INJ 0.5 MG/5 ML VIAL ONE (17:11)
--- NOTE | 2017-08-30 17:49 | PDOC PROGRESS REPORT ---
Subjective Progress Note for:: 08/30/17 Subjective:: feels ok. had melena. no emesis Reason For Visit: GI BLEED ANEMIA,HYPOTENSION Physical Exam Vital Signs: Temp Pulse Resp BP Pulse Ox 98.8 F 76 19 113/59 L 98 08/30/17 17:26 08/30/17 16:58 08/30/17 17:26 08/30/17 17:26 08/30/17 17:26 Intake & Output 08/29/17 08/30/17 08/31/17 06:59 06:59 06:59 Intake Total 350 913 Output Total 800 1755 Balance -450 -842 Weight 118.6 kg General appearance: PRESENT: no acute distress, cooperative Respiratory exam: PRESENT: clear to auscultation miguel ángel Cardiovascular exam: PRESENT: RRR GI/Abdominal exam: PRESENT: soft - non tender Results Laboratory Results: 08/30/17 12:25 08/30/17 06:56 08/30/17 08/30/17 08/30/17 06:56 06:56 06:56 WBC 29.1 H RBC 2.28 L Hgb 6.7 L D Hct 19.9 L MCV 88 MCH 29.4 MCHC 33.7 RDW 14.3 H Plt Count 397 Sodium 144.4 Potassium 4.3 Chloride 115 H Carbon Dioxide 23 Anion Gap 6 BUN 26 H Creatinine 0.92 Est GFR ( Amer) > 60 Est GFR (Non-Af Amer) > 60 Glucose 136 H Calcium 7.9 L Phosphorus 4.2 Magnesium 2.1 Total Bilirubin 0.2 AST 20 ALT 34 Alkaline Phosphatase 47 Total Protein 4.4 L Albumin 2.2 L TSH 12.60 H 08/30/17 12:25 WBC 28.4 H RBC 2.11 L Hgb 6.1 L Hct 18.5 L MCV 88 MCH 29.1 MCHC 33.2 RDW 14.4 H Plt Count 391 Sodium Potassium Chloride Carbon Dioxide Anion Gap BUN Creatinine Est GFR ( Amer) Est GFR (Non-Af Amer) Glucose Calcium Phosphorus Magnesium Total Bilirubin AST ALT Alkaline Phosphatase Total Protein Albumin TSH 08/30/17 06:56 NT-Pro-B Natriuret Pep 60 Impressions: Chest/Abdomen CTA 08/29/17 09:15 IMPRESSION: No CT angio evidence of acute pulmonary emboli or thoracic aortic dissection Since the CT exam 08/19/2017, patient has developed a trace left pleural effusion , bibasilar atelectasis, and retroperitoneal stranding around the pancreatic tail which could indicate pancreatitis Chest X-Ray 08/29/17 11:03 IMPRESSION: No pneumothorax post left jugular line placement, with line tip in the superior vena cava. Stable bandlike atelectasis left lung base Assessment & Plan - Diagnosis (1) Gastrointestinal bleeding, upper Is this a current diagnosis for this admission?: Yes Plan: despite 5 units of prbc, hct only 18%. but hemodynamically stable with good urine output. plan repeat egd. pt getting another two units of blood. d/w pt risk of bleeding and intestinal injury. pt agrees to proceed. (2) Pancreatitis Qualifiers: Chronicity: acute Is this a current diagnosis for this admission?: Yes
--- NOTE | 2017-08-30 18:37 | Operative Report ---
Operative Report DATE OF SURGERY: 08/30/17 PREOPERATIVE DIAGNOSIS: Upper GI bleeding POSTOPERATIVE DIAGNOSIS: Prepyloric ulcer OPERATION: Esophagogastroduodenoscopy SURGEON: RAI ONEAL ANESTHESIA: LMAC TISSUE REMOVED OR ALTERED: None COMPLICATIONS: None ESTIMATED BLOOD LOSS: None INTRAOPERATIVE FINDINGS: Prepyloric ulcer with clips in place. No visible vessel. No active bleeding. No blood clots in the stomach nor the duodenum. Duodenum appears to be normal. PROCEDURE: Informed consent was obtained. Procedure was done at the patient's bedside. IV sedation with Versed and fentanyl was administered. Endoscope was passed via the patient's mouth it was fed down to the second portion of the duodenum. The duodenum appeared to be normal. Just at the pyloric channel/prepyloric region there was a large ulcer with clips in place. I did not see any visible vessels. There was no blood clots. There was no fresh blood in the duodenum nor the stomach. With that no active bleeding and no visible vessel seen I did not take any intervention measures. Air was desufflated and the scope was withdrawn. The esophagus appeared unremarkable. Patient tolerated procedure well with no apparent complications.
[2017-08-30 21:56] LABS: HEMATOCRIT 22.4 % (37.9-51.0); MEAN CORPUSCULAR HEMOGLOBIN 28.4 pg (27.0-33.4); MEAN CORPUSCULAR HGB CONC 33.3 g/dL (32.0-36.0); MEAN CORPUSCULAR VOLUME 85 fl (80-97); PLATELET COUNT 382 10^3/uL (150-450); RED BLOOD COUNT 2.62 10^6/uL (4.35-5.55); WHITE BLOOD COUNT 24.4 10^3/uL (4.0-10.5)
[2017-08-30 22:03] LABS: ANION GAP 5 (5-19); BLOOD UREA NITROGEN 20 mg/dL (7-20); CALCIUM 8.1 mg/dL (8.4-10.2); CARBON DIOXIDE 27 mmol/L (22-30); CHLORIDE 114 mmol/L (98-107); GLUCOSE 109 mg/dL (75-110); POTASSIUM 4.2 mmol/L (3.6-5.0); SODIUM 145.8 mmol/L (137-145)
[2017-08-30 22:17] LABS: HEMOGLOBIN 7.4 g/dL (13.5-17.0)
[2017-08-31] MEDS: METRONIDAZOLE 500 MG/NS RTU 100 ML IV SCH ×3 (00:34→11:23)
[2017-08-31] MEDS: FENTANYL CITRATE INJ/PF 100 MCG/2 ML AMPUL IV PRN ×5 (01:58→22:45)
[2017-08-31] MEDS: POTASSI CL 20 MEQ/NS 1L 1,000 ML IV PRN (04:52)
[2017-08-31] MEDS ORDERED: LEVOTHYROXINE SODIUM 0.112 MG TABLET PO SCH (06:00)
[2017-08-31 06:34] LABS: ALANINE AMINOTRANSFERASE 35 U/L (21-72); ALBUMIN 2.3 g/dL (3.5-5.0); ALKALINE PHOSPHATASE 45 U/L (38-126); ASPARTATE AMINO TRANSFERASE 18 U/L (17-59); BILIRUBIN,DIRECT 0.1 mg/dL (0.0-0.4); BILIRUBIN,TOTAL 0.1 mg/dL (0.2-1.3); BLOOD UREA NITROGEN 17 mg/dL (7-20); CALCIUM 8.2 mg/dL (8.4-10.2); GLUCOSE 110 mg/dL (75-110); HEMATOCRIT 22.4 % (37.9-51.0); MEAN CORPUSCULAR HEMOGLOBIN 28.2 pg (27.0-33.4); MEAN CORPUSCULAR HGB CONC 33.1 g/dL (32.0-36.0); MEAN CORPUSCULAR VOLUME 85 fl (80-97); PHOSPHORUS 4.2 mg/dL (2.5-4.5); PLATELET COUNT 420 10^3/uL (150-450); POTASSIUM 4.5 mmol/L (3.6-5.0); RED BLOOD COUNT 2.63 10^6/uL (4.35-5.55); RED CELL DISTRIBUTION WIDTH 16.6 % (11.5-14.0); TOTAL PROTEIN 4.6 g/dL (6.3-8.2)
[2017-08-31 06:39] LABS: ANION GAP 5 (5-19); CARBON DIOXIDE 26 mmol/L (22-30); CHLORIDE 115 mmol/L (98-107); SODIUM 146.2 mmol/L (137-145)
[2017-08-31 07:07] LABS: HEMOGLOBIN 7.4 g/dL (13.5-17.0); WHITE BLOOD COUNT 23.2 10^3/uL (4.0-10.5)
[2017-08-31] MEDS ORDERED: CABERGOLINE 0.25 MG PO SCH (10:00)
[2017-08-31] MEDS ORDERED: LEVOTHYROXINE SODIUM INJ/PF 0.1 MG SDV IV SCH (10:00)
--- NOTE | 2017-08-31 10:14 | PDOC PROGRESS REPORT ---
Subjective Progress Note for:: 08/31/17 Subjective:: In the ICU, feels well; hemodynamically stable; adequate urine output. Reason For Visit: GI BLEED ANEMIA,HYPOTENSION Physical Exam Vital Signs: Temp Pulse Resp BP Pulse Ox 98.4 F 69 19 106/66 99 08/31/17 08:00 08/31/17 08:00 08/31/17 08:00 08/31/17 08:00 08/31/17 08:00 Intake & Output 08/30/17 08/31/17 09/01/17 06:59 06:59 06:59 Intake Total 350 6125 Output Total 800 4780 225 Balance -450 1345 -225 Weight 118.6 kg 121.7 kg General appearance: PRESENT: no acute distress GI/Abdominal exam: PRESENT: other - Abdomen benign; half amanda still in; no peritoneal signs Results Laboratory Results: 08/31/17 06:15 08/31/17 06:15 08/30/17 08/30/17 08/30/17 12:25 21:44 21:44 WBC 28.4 H 24.4 H RBC 2.11 L 2.62 L Hgb 6.1 L 7.4 L Hct 18.5 L 22.4 L MCV 88 85 MCH 29.1 28.4 MCHC 33.2 33.3 RDW 14.4 H 16.0 H Plt Count 391 382 Sodium 145.8 H Potassium 4.2 Chloride 114 H Carbon Dioxide 27 Anion Gap 5 BUN 20 Creatinine 0.93 Est GFR ( Amer) > 60 Est GFR (Non-Af Amer) > 60 Glucose 109 Calcium 8.1 L Phosphorus Magnesium 2.1 Total Bilirubin AST ALT Alkaline Phosphatase Total Protein Albumin 08/31/17 08/31/17 06:15 06:15 WBC 23.2 H RBC 2.63 L Hgb 7.4 L Hct 22.4 L MCV 85 MCH 28.2 MCHC 33.1 RDW 16.6 H Plt Count 420 Sodium 146.2 H Potassium 4.5 Chloride 115 H Carbon Dioxide 26 Anion Gap 5 BUN 17 Creatinine 0.95 Est GFR ( Amer) > 60 Est GFR (Non-Af Amer) > 60 Glucose 110 Calcium 8.2 L Phosphorus 4.2 Magnesium 2.0 Total Bilirubin 0.1 L AST 18 ALT 35 Alkaline Phosphatase 45 Total Protein 4.6 L Albumin 2.3 L 08/30/17 06:56 NT-Pro-B Natriuret Pep 60 Impressions: Chest/Abdomen CTA 08/29/17 09:15 IMPRESSION: No CT angio evidence of acute pulmonary emboli or thoracic aortic dissection Since the CT exam 08/19/2017, patient has developed a trace left pleural effusion , bibasilar atelectasis, and retroperitoneal stranding around the pancreatic tail which could indicate pancreatitis Chest X-Ray 08/29/17 11:03 IMPRESSION: No pneumothorax post left jugular line placement, with line tip in the superior vena cava. Stable bandlike atelectasis left lung base Assessment & Plan - Diagnosis (1) Upper GI bleed Is this a current diagnosis for this admission?: Yes Plan: Patient is 2 days status post control of upper GI hemorrhage secondary to bleeding from previously perforated gastric ulcer. Patient underwent re- endoscopy yesterday which showed clips in good position and no active bleeding. Hemoglobin stable at 7.4. Patient has no clinical or serologic evidence of ongoing bleeding. Recommendations: 1. We will start clear liquids slowly. 2. Keep in ICU, out of bed to chair. 3. Discussed with hospitalist service; will start p.o. Flagyl for C. difficile infection 4. If patient rebleeds or leaks or has any problems from the ulcer, he will need a formal operative antrectomy ; This was explained to the patient, and nursing staff.
[2017-08-31 10:56] LABS: HEMATOCRIT 22.6 % (37.9-51.0); MEAN CORPUSCULAR HEMOGLOBIN 28.8 pg (27.0-33.4); MEAN CORPUSCULAR HGB CONC 33.1 g/dL (32.0-36.0); MEAN CORPUSCULAR VOLUME 87 fl (80-97); PLATELET COUNT 415 10^3/uL (150-450); RED CELL DISTRIBUTION WIDTH 16.7 % (11.5-14.0); WHITE BLOOD COUNT 23.3 10^3/uL (4.0-10.5)
[2017-08-31 10:58] LABS: HEMOGLOBIN 7.5 g/dL (13.5-17.0)
[2017-08-31] MEDS: NORMAL SALINE 100 ML with PANTOPRAZOLE SODIUM 80 MG IV PRN ×4 (11:18→21:19)
[2017-08-31 11:23] LABS: BASOPHILS % (MANUAL) 2 % (0-2); TOTAL CELLS COUNTED 100
[2017-08-31 11:25] LABS: ANISOCYTOSIS 2+; OVALOCYTES 2+; POIKILOCYTOSIS 2+; POLYCHROMASIA 1+; TOXIC GRANULATION 1+
[2017-08-31 11:26] LABS: PLATELET COMMENT ADEQUATE
[2017-08-31 11:46] LABS: ABSOLUTE LYMPHOCYTES# (MANUAL) 1.2 10^3/uL (0.5-4.7); ABSOLUTE MONOCYTES # (MANUAL) 1.2 10^3/uL (0.1-1.4); ABSOLUTE NEUTROPHILS# (MANUAL) 19.6 10^3/uL (1.7-8.2); BAND NEUTROPHILS % (MANUAL) 1 % (3-5); EOSINOPHILS % (MANUAL) 4 % (0-6); LYMPHOCYTES % (MANUAL) 5 % (13-45); METAMYELOCYTES % (MANUAL) 2 % (0); MONOCYTES % (MANUAL) 5 % (3-13); MYELOCYTES % (MANUAL) 1 % (0); SEGMENTED NEUTROPHILS % (MAN) 80 % (42-78)
[2017-08-31 11:59] LABS: NUCLEATED RED BLOOD CELLS 1 /100 WBC (0)
--- NOTE | 2017-08-31 17:11 | PDOC PROGRESS REPORT ---
Subjective Progress Note for:: 08/31/17 Subjective:: The patient is a 51-year-old gentleman with a past medical history of Pituitary adenoma Hypothyroidism Nicotine dependence COPD Obstructive sleep apnea He was discharged on August 27 after perforated gastric ulcer repair. During that hospital stay he was also treated for C. difficile diarrhea. The patient presented back to the hospital on August 29 with melena and severe anemia. He received 3 units of packed red blood cells and was seen in consultation by the surgical service. He developed some hematemesis overnight on August 29 and an endoscopy was done by Dr. [place]. He was intubated during the procedure and was extubated early this morning. He was transfused 2 more units of blood and was also given FFP A large clot was found in the cardia of the stomach and was removed. The stomach was irrigated suctioned and inspected. In the antrum at the area of previous repair there was a small visible vessel with clot around it which was irrigated and epinephrine was injected submucosally and then cauterized. Resolution clips were placed proximally and distally which halted the bleeding. No bleeding was seen in the first or second part of the duodenum. He has received a total of 7 units of packed red blood cells. We will continue to monitor closely. No complaints at present. Okay to start clear liquids per surgical service. Reason For Visit: GI BLEED ANEMIA,HYPOTENSION Physical Exam Vital Signs: Temp Pulse Resp BP Pulse Ox 98.6 F 75 21 H 109/61 100 08/31/17 14:00 08/31/17 14:00 08/31/17 16:00 08/31/17 15:35 08/31/17 16:00 Intake & Output 08/30/17 08/31/17 09/01/17 06:59 06:59 06:59 Intake Total 350 6125 Output Total 800 4780 1025 Balance -450 1345 -1025 Weight 118.6 kg 121.7 kg General appearance: PRESENT: no acute distress Head exam: PRESENT: normocephalic Eye exam: ABSENT: scleral icterus Ear exam: PRESENT: normal external ear exam Mouth exam: PRESENT: moist Respiratory exam: PRESENT: symmetrical, unlabored. ABSENT: rhonchi Cardiovascular exam: PRESENT: RRR GI/Abdominal exam: PRESENT: normal bowel sounds, soft. ABSENT: tenderness Rectal exam: PRESENT: deferred Extremities exam: ABSENT: pedal edema Neurological exam: PRESENT: alert, awake, oriented to person, oriented to place , oriented to time, oriented to situation Psychiatric exam: PRESENT: appropriate affect Results Laboratory Results: 08/31/17 08:25 08/31/17 06:15 08/30/17 08/30/17 08/31/17 21:44 21:44 06:15 WBC 24.4 H 23.2 H RBC 2.62 L 2.63 L Hgb 7.4 L 7.4 L Hct 22.4 L 22.4 L MCV 85 85 MCH 28.4 28.2 MCHC 33.3 33.1 RDW 16.0 H 16.6 H Plt Count 382 420 Seg Neutrophils % Lymphocytes % Monocytes % Eosinophils % Basophils % Absolute Neutrophils Absolute Lymphocytes Absolute Monocytes Absolute Eosinophils Absolute Basophils Sodium 145.8 H Potassium 4.2 Chloride 114 H Carbon Dioxide 27 Anion Gap 5 BUN 20 Creatinine 0.93 Est GFR ( Amer) > 60 Est GFR (Non-Af Amer) > 60 Glucose 109 Calcium 8.1 L Phosphorus Magnesium 2.1 Total Bilirubin AST ALT Alkaline Phosphatase Total Protein Albumin 08/31/17 08/31/17 06:15 08:25 WBC 23.3 H RBC 2.60 L Hgb 7.5 L Hct 22.6 L MCV 87 MCH 28.8 MCHC 33.1 RDW 16.7 H Plt Count 415 Seg Neutrophils % Not Reportable Lymphocytes % Not Reportable Monocytes % Not Reportable Eosinophils % Not Reportable Basophils % Not Reportable Absolute Neutrophils Not Reportable Absolute Lymphocytes Not Reportable Absolute Monocytes Not Reportable Absolute Eosinophils Not Reportable Absolute Basophils Not Reportable Sodium 146.2 H Potassium 4.5 Chloride 115 H Carbon Dioxide 26 Anion Gap 5 BUN 17 Creatinine 0.95 Est GFR ( Amer) > 60 Est GFR (Non-Af Amer) > 60 Glucose 110 Calcium 8.2 L Phosphorus 4.2 Magnesium 2.0 Total Bilirubin 0.1 L AST 18 ALT 35 Alkaline Phosphatase 45 Total Protein 4.6 L Albumin 2.3 L 08/30/17 06:56 NT-Pro-B Natriuret Pep 60 Impressions: Chest/Abdomen CTA 08/29/17 09:15 IMPRESSION: No CT angio evidence of acute pulmonary emboli or thoracic aortic dissection Since the CT exam 08/19/2017, patient has developed a trace left pleural effusion , bibasilar atelectasis, and retroperitoneal stranding around the pancreatic tail which could indicate pancreatitis Chest X-Ray 08/29/17 11:03 IMPRESSION: No pneumothorax post left jugular line placement, with line tip in the superior vena cava. Stable bandlike atelectasis left lung base Assessment & Plan - Diagnosis (1) Severe anemia Is this a current diagnosis for this admission?: Yes Plan: He has received a total of 7 units of packed red blood cells and 2 units of FFP since admission. Continue to monitor hemoglobin and transfuse as needed to keep hemoglobin 8 or above. (2) Hypotension Is this a current diagnosis for this admission?: Yes Plan: Resolved. Continue to monitor. (3) Upper GI bleed Is this a current diagnosis for this admission?: Yes Plan: Bleeding vessel in the antrum status post epinephrine injections cautery and clips. Management per surgical service (4) C. difficile diarrhea Is this a current diagnosis for this admission?: Yes Plan: PO Flagyl (5) Hypothyroidism Is this a current diagnosis for this admission?: Yes Plan: Continue Synthroid (6) Pituitary tumor Is this a current diagnosis for this admission?: Yes Plan: Continue cabergoline (7) DVT prophylaxis Is this a current diagnosis for this admission?: Yes Plan: Sequential teds. (8) COPD (chronic obstructive pulmonary disease) with emphysema Qualifiers: Emphysema type: centrilobular Qualified Code(s): J43.2 - Centrilobular emphysema Is this a current diagnosis for this admission?: Yes Plan: Nebs as needed. Not in exacerbation. - Time Time Spent with patient: 35 or more minutes
[2017-08-31] MEDS: LACTOBACILLUS ACIDOPHILUS 250 MG TAB PO SCH (18:38)
[2017-08-31] MEDS: METRONIDAZOLE 500 MG TABLET PO SCH (22:45)
[2017-09-01] MEDS: FENTANYL CITRATE INJ/PF 100 MCG/2 ML AMPUL IV PRN ×5 (02:51→20:03)
[2017-09-01] MEDS: NORMAL SALINE 100 ML with PANTOPRAZOLE SODIUM 80 MG IV PRN ×2 (05:11)
[2017-09-01] MEDS: METRONIDAZOLE 500 MG TABLET PO SCH ×3 (05:11→22:17)
[2017-09-01 05:41] LABS: ALANINE AMINOTRANSFERASE 29 U/L (21-72); ALBUMIN 2.2 g/dL (3.5-5.0); ALKALINE PHOSPHATASE 49 U/L (38-126); ANION GAP 5 (5-19); ASPARTATE AMINO TRANSFERASE 17 U/L (17-59); BLOOD UREA NITROGEN 14 mg/dL (7-20); CALCIUM 8.2 mg/dL (8.4-10.2); CARBON DIOXIDE 28 mmol/L (22-30); CHLORIDE 112 mmol/L (98-107); GLUCOSE 104 mg/dL (75-110); PHOSPHORUS 3.4 mg/dL (2.5-4.5); POTASSIUM 3.9 mmol/L (3.6-5.0); SODIUM 145.2 mmol/L (137-145); TOTAL PROTEIN 4.5 g/dL (6.3-8.2)
[2017-09-01 05:43] LABS: BILIRUBIN,TOTAL < 0.1 mg/dL (0.2-1.3)
[2017-09-01 05:49] LABS: MEAN CORPUSCULAR HEMOGLOBIN 29.1 pg (27.0-33.4); MEAN CORPUSCULAR HGB CONC 33.5 g/dL (32.0-36.0); MEAN CORPUSCULAR VOLUME 87 fl (80-97); PLATELET COUNT 467 10^3/uL (150-450); RED BLOOD COUNT 2.65 10^6/uL (4.35-5.55); WHITE BLOOD COUNT 21.8 10^3/uL (4.0-10.5)
[2017-09-01 05:53] LABS: FREE T4 (FREE THYROXINE) 0.6 ng/dL (0.78-2.19)
[2017-09-01 06:07] LABS: THYROID STIMULATING HORMONE 9.68 uIU/mL (0.47-4.68)
[2017-09-01 06:17] LABS: HEMOGLOBIN 7.7 g/dL (13.5-17.0)
[2017-09-01 06:59] LABS: ABSOLUTE LYMPHOCYTES# (MANUAL) 1.3 10^3/uL (0.5-4.7); ABSOLUTE MONOCYTES # (MANUAL) 0.4 10^3/uL (0.1-1.4); ABSOLUTE NEUTROPHILS# (MANUAL) 20.1 10^3/uL (1.7-8.2); BAND NEUTROPHILS % (MANUAL) 6 % (3-5); BASOPHILS % (MANUAL) 0 % (0-2); EOSINOPHILS % (MANUAL) 0 % (0-6); LYMPHOCYTES % (MANUAL) 6 % (13-45); METAMYELOCYTES % (MANUAL) 4 % (0); MONOCYTES % (MANUAL) 2 % (3-13); MYELOCYTES % (MANUAL) 4 % (0); SEGMENTED NEUTROPHILS % (MAN) 78 % (42-78); TOTAL CELLS COUNTED 100
[2017-09-01 07:00] LABS: ANISOCYTOSIS 2+
[2017-09-01 07:01] LABS: HYPOCHROMASIA 3+
[2017-09-01 07:02] LABS: POIKILOCYTOSIS 1+; POLYCHROMASIA 1+
[2017-09-01 07:03] LABS: PLATELET COMMENT INCREASED
[2017-09-01] MEDS ORDERED: LEVOTHYROXINE SODIUM INJ/PF 0.1 MG SDV IV SCH (07:45)
[2017-09-01] MEDS: SUCRALFATE SUSP 1 GM/10 ML UDCUP PO SCH ×4 (09:32→22:16)
[2017-09-01] MEDS: LACTOBACILLUS ACIDOPHILUS 250 MG TAB PO SCH ×2 (09:33→17:48)
[2017-09-01] MEDS: PRENATAL VITAMIN W DHA CAPSULE PO SCH (09:34)
[2017-09-01] MEDS: OXYCODONE-ACETAMINOPHEN 5-325 MG TABLET PO PRN ×2 (09:38→22:17)
--- NOTE | 2017-09-01 10:59 | PDOC PROGRESS REPORT ---
Subjective Progress Note for:: 09/01/17 Subjective:: Patient has no complaints, desaturates when he is out of bed, wearing oxygen; hemodynamically stable, no problems still in the ICU transferring bed to chair. Reason For Visit: GI BLEED ANEMIA,HYPOTENSION Physical Exam Vital Signs: Temp Pulse Resp BP Pulse Ox 98.5 F 73 21 H 119/77 99 09/01/17 05:20 08/31/17 20:11 09/01/17 06:00 09/01/17 05:35 09/01/17 06:00 Intake & Output 08/31/17 09/01/17 09/02/17 06:59 06:59 06:59 Intake Total 6125 1917 Output Total 4780 6665 Balance 1345 -758 Weight 121.7 kg 122.9 kg General appearance: PRESENT: no acute distress GI/Abdominal exam: PRESENT: other - All amanda out; soft no peritoneal signs no rigidity. Musculoskeletal exam: PRESENT: other - Some puffiness to the hands Results Laboratory Results: 09/01/17 05:08 09/01/17 05:08 08/31/17 09/01/17 09/01/17 08:25 05:08 05:08 WBC 23.3 H 21.8 H RBC 2.60 L 2.65 L Hgb 7.5 L 7.7 L Hct 22.6 L 23.0 L MCV 87 87 MCH 28.8 29.1 MCHC 33.1 33.5 RDW 16.7 H 16.0 H Plt Count 415 467 H Seg Neutrophils % Not Reportable Not Reportable Lymphocytes % Not Reportable Not Reportable Monocytes % Not Reportable Not Reportable Eosinophils % Not Reportable Not Reportable Basophils % Not Reportable Not Reportable Absolute Neutrophils Not Reportable Not Reportable Absolute Lymphocytes Not Reportable Not Reportable Absolute Monocytes Not Reportable Not Reportable Absolute Eosinophils Not Reportable Not Reportable Absolute Basophils Not Reportable Not Reportable Sodium 145.2 H Potassium 3.9 Chloride 112 H Carbon Dioxide 28 Anion Gap 5 BUN 14 Creatinine 0.82 Est GFR ( Amer) > 60 Est GFR (Non-Af Amer) > 60 Glucose 104 Calcium 8.2 L Phosphorus 3.4 Magnesium 2.1 Total Bilirubin < 0.1 L AST 17 ALT 29 Alkaline Phosphatase 49 Total Protein 4.5 L Albumin 2.2 L TSH Free T4 09/01/17 05:08 WBC RBC Hgb Hct MCV MCH MCHC RDW Plt Count Seg Neutrophils % Lymphocytes % Monocytes % Eosinophils % Basophils % Absolute Neutrophils Absolute Lymphocytes Absolute Monocytes Absolute Eosinophils Absolute Basophils Sodium Potassium Chloride Carbon Dioxide Anion Gap BUN Creatinine Est GFR ( Amer) Est GFR (Non-Af Amer) Glucose Calcium Phosphorus Magnesium Total Bilirubin AST ALT Alkaline Phosphatase Total Protein Albumin TSH 9.68 H Free T4 0.60 L 08/30/17 06:56 NT-Pro-B Natriuret Pep 60 Impressions: Chest/Abdomen CTA 08/29/17 09:15 IMPRESSION: No CT angio evidence of acute pulmonary emboli or thoracic aortic dissection Since the CT exam 08/19/2017, patient has developed a trace left pleural effusion , bibasilar atelectasis, and retroperitoneal stranding around the pancreatic tail which could indicate pancreatitis Chest X-Ray 08/29/17 11:03 IMPRESSION: No pneumothorax post left jugular line placement, with line tip in the superior vena cava. Stable bandlike atelectasis left lung base Assessment & Plan - Diagnosis (1) Upper GI bleed Is this a current diagnosis for this admission?: Yes Plan: Patient now 3 days status post stabilization of acute GI bleed with shock, multiple transfusion of packed red cells for bleeding from gastric antral ulcer was previously oversewn 1 week prior. Patient appears to be hemodynamically stable no evidence of bleeding clinically. Suspect leukocytosis related to stress versus occult infection versus C. difficile colitis Recommendations: 1. Slowly advance diet to full transfer to floor 2. Continue p.o. Flagyl for treatment of Clostridium difficile colitis 3. Spoke to the patient's for approximately 23 minutes last p.m. about events thus far, management of twice complicated acute peptic ulcer disease, and anticipated management in the future, including definitive surgical management such as vagotomy and antrectomy with reconstruction if the patient has another complication. She expresses her understanding and agrees to proceed. (2) C. difficile diarrhea Is this a current diagnosis for this admission?: Yes (3) Gastrointestinal bleeding, upper Is this a current diagnosis for this admission?: Yes (4) Hypothyroidism Is this a current diagnosis for this admission?: Yes (5) COPD (chronic obstructive pulmonary disease) with emphysema Qualifiers: Emphysema type: centrilobular Qualified Code(s): J43.2 - Centrilobular emphysema Is this a current diagnosis for this admission?: Yes
--- NOTE | 2017-09-01 13:51 | PDOC PROGRESS REPORT ---
Subjective Progress Note for:: 09/01/17 Subjective:: The patient is a 51-year-old gentleman with a past medical history of Pituitary adenoma Hypothyroidism Nicotine dependence COPD Obstructive sleep apnea He was discharged on August 27 after perforated gastric ulcer repair. During that hospital stay he was also treated for C. difficile diarrhea. The patient presented back to the hospital on August 29 with melena and severe anemia. He received 3 units of packed red blood cells and was seen in consultation by the surgical service. He developed some hematemesis overnight on August 29 and an endoscopy was done by Dr. Spain. He was intubated during the procedure and was extubated early this morning. He was transfused 2 more units of blood and was also given FFP A large clot was found in the cardia of the stomach and was removed. The stomach was irrigated suctioned and inspected. In the antrum at the area of previous repair there was a small visible vessel with clot around it which was irrigated and epinephrine was injected submucosally and then cauterized. Resolution clips were placed proximally and distally which halted the bleeding. No bleeding was seen in the first or second part of the duodenum. He has received a total of 7 units of packed red blood cells. No complaints at present. No further hematemesis or melena. Hemoglobin has remained stable. Continue to monitor. Diet is being advanced by the surgical service. TSH is elevated, Levothyroxine dose increased from 224 to 250 mcg. Reason For Visit: GI BLEED ANEMIA,HYPOTENSION Physical Exam Vital Signs: Temp Pulse Resp BP Pulse Ox 97.0 F 64 18 113/70 97 09/01/17 08:00 09/01/17 08:00 09/01/17 11:36 09/01/17 11:36 09/01/17 11:36 Intake & Output 08/31/17 09/01/17 09/02/17 06:59 06:59 06:59 Intake Total 6125 1917 Output Total 9981 1630 375 Balance 6315 -568 -375 Weight 121.7 kg 122.9 kg General appearance: PRESENT: no acute distress Head exam: PRESENT: normocephalic Eye exam: ABSENT: scleral icterus Mouth exam: PRESENT: moist Respiratory exam: PRESENT: rhonchi, symmetrical, unlabored. ABSENT: wheezes Cardiovascular exam: PRESENT: RRR GI/Abdominal exam: PRESENT: normal bowel sounds, soft. ABSENT: tenderness Rectal exam: PRESENT: deferred Extremities exam: ABSENT: pedal edema Neurological exam: PRESENT: alert, awake, oriented to person, oriented to place , oriented to time, oriented to situation Psychiatric exam: PRESENT: appropriate affect Results Laboratory Results: 09/01/17 05:08 09/01/17 05:08 09/01/17 09/01/17 09/01/17 05:08 05:08 05:08 WBC 21.8 H RBC 2.65 L Hgb 7.7 L Hct 23.0 L MCV 87 MCH 29.1 MCHC 33.5 RDW 16.0 H Plt Count 467 H Seg Neutrophils % Not Reportable Lymphocytes % Not Reportable Monocytes % Not Reportable Eosinophils % Not Reportable Basophils % Not Reportable Absolute Neutrophils Not Reportable Absolute Lymphocytes Not Reportable Absolute Monocytes Not Reportable Absolute Eosinophils Not Reportable Absolute Basophils Not Reportable Sodium 145.2 H Potassium 3.9 Chloride 112 H Carbon Dioxide 28 Anion Gap 5 BUN 14 Creatinine 0.82 Est GFR ( Amer) > 60 Est GFR (Non-Af Amer) > 60 Glucose 104 Calcium 8.2 L Phosphorus 3.4 Magnesium 2.1 Total Bilirubin < 0.1 L AST 17 ALT 29 Alkaline Phosphatase 49 Total Protein 4.5 L Albumin 2.2 L TSH 9.68 H Free T4 0.60 L 08/30/17 06:56 NT-Pro-B Natriuret Pep 60 Impressions: Chest/Abdomen CTA 08/29/17 09:15 IMPRESSION: No CT angio evidence of acute pulmonary emboli or thoracic aortic dissection Since the CT exam 08/19/2017, patient has developed a trace left pleural effusion , bibasilar atelectasis, and retroperitoneal stranding around the pancreatic tail which could indicate pancreatitis Chest X-Ray 08/29/17 11:03 IMPRESSION: No pneumothorax post left jugular line placement, with line tip in the superior vena cava. Stable bandlike atelectasis left lung base Assessment & Plan - Diagnosis (1) Severe anemia Is this a current diagnosis for this admission?: Yes Plan: He has received a total of 7 units of packed red blood cells and 2 units of FFP since admission. Continue to monitor hemoglobin and transfuse as needed. (2) Hypotension Is this a current diagnosis for this admission?: Yes Plan: Resolved. Continue to monitor. (3) Upper GI bleed Is this a current diagnosis for this admission?: Yes Plan: Bleeding vessel in the antrum status post epinephrine injections cautery and clips. Management per surgical service (4) C. difficile diarrhea Is this a current diagnosis for this admission?: Yes Plan: PO Flagyl (5) Hypothyroidism Is this a current diagnosis for this admission?: Yes Plan: Synthroid dose increased (6) Pituitary tumor Is this a current diagnosis for this admission?: Yes Plan: Continue Cabergoline twice a week (7) DVT prophylaxis Is this a current diagnosis for this admission?: Yes Plan: Sequential teds. (8) COPD (chronic obstructive pulmonary disease) with emphysema Qualifiers: Emphysema type: centrilobular Qualified Code(s): J43.2 - Centrilobular emphysema Is this a current diagnosis for this admission?: Yes Plan: Stable. Nebs as needed. - Time Time Spent with patient: 25-34 minutes
[2017-09-01] MEDS: LANSOPRAZOLE 30 MG TAB.RAP.DR PO SCH (17:47)
[2017-09-01] MEDS ORDERED: PANTOPRAZOLE SODIUM 40 MG VIAL IV SCH (22:00)
[2017-09-02] MEDS: FENTANYL CITRATE INJ/PF 100 MCG/2 ML AMPUL IV PRN ×2 (00:07→06:00)
[2017-09-02] MEDS: OXYCODONE-ACETAMINOPHEN 5-325 MG TABLET PO PRN (02:50)
[2017-09-02] MEDS: METRONIDAZOLE 500 MG TABLET PO SCH ×3 (05:59→21:14)
[2017-09-02] MEDS: LEVOTHYROXINE SODIUM 0.1 MG TABLET PO SCH (05:59)
[2017-09-02] MEDS: LANSOPRAZOLE 30 MG TAB.RAP.DR PO SCH ×2 (06:00→16:52)
[2017-09-02 06:34] LABS: WHITE BLOOD COUNT 19.6 10^3/uL (4.0-10.5)
[2017-09-02 06:41] LABS: HEMATOCRIT 24.6 % (37.9-51.0); HEMOGLOBIN 8.1 g/dL (13.5-17.0); MEAN CORPUSCULAR HEMOGLOBIN 29.1 pg (27.0-33.4); MEAN CORPUSCULAR HGB CONC 33.1 g/dL (32.0-36.0); MEAN CORPUSCULAR VOLUME 88 fl (80-97); PLATELET COUNT 509 10^3/uL (150-450)
[2017-09-02 08:07] LABS: ABSOLUTE LYMPHOCYTES# (MANUAL) 1.2 10^3/uL (0.5-4.7); ABSOLUTE NEUTROPHILS# (MANUAL) 17.1 10^3/uL (1.7-8.2); BASOPHILS % (MANUAL) 0 % (0-2); EOSINOPHILS % (MANUAL) 2 % (0-6); LYMPHOCYTES % (MANUAL) 6 % (13-45); MONOCYTES % (MANUAL) 5 % (3-13); MYELOCYTES % (MANUAL) 1 % (0); NUCLEATED RED BLOOD CELLS 1 /100 WBC (0); SEGMENTED NEUTROPHILS % (MAN) 86 % (42-78); TOTAL CELLS COUNTED 100
[2017-09-02 08:08] LABS: ANISOCYTOSIS SLIGHT; OVALOCYTES 1+; POIKILOCYTOSIS 1+; POLYCHROMASIA SLIGHT
[2017-09-02 08:09] LABS: PLATELET COMMENT INCREASED
[2017-09-02] MEDS: SUCRALFATE SUSP 1 GM/10 ML UDCUP PO SCH ×4 (09:19→21:14)
[2017-09-02] MEDS: LACTOBACILLUS ACIDOPHILUS 250 MG TAB PO SCH ×2 (09:20→16:52)
[2017-09-02] MEDS: PRENATAL VITAMIN W DHA CAPSULE PO SCH (09:20)
--- NOTE | 2017-09-02 09:20 | PDOC PROGRESS REPORT ---
Subjective Progress Note for:: 09/02/17 Subjective:: patient feels better, full liquid diet tolerated Reason For Visit: GI BLEED ANEMIA,HYPOTENSION Physical Exam Vital Signs: Temp Pulse Resp BP Pulse Ox 98.1 F 90 18 104/68 97 09/02/17 04:00 09/02/17 07:31 09/02/17 06:00 09/01/17 19:32 09/01/17 15:00 Intake & Output 09/01/17 09/02/17 09/03/17 06:59 06:59 06:59 Intake Total 1917 800 Output Total 2675 1350 Balance -758 -550 Weight 122.9 kg 121.3 kg General appearance: PRESENT: no acute distress Mouth exam: PRESENT: moist Respiratory exam: PRESENT: chest wall tenderness Cardiovascular exam: PRESENT: RRR GI/Abdominal exam: PRESENT: normal bowel sounds, other - obese, soft, incision c /d/i, healerd Results Laboratory Results: 09/02/17 06:00 09/01/17 05:08 09/02/17 06:00 WBC 19.6 H RBC 2.80 L Hgb 8.1 L Hct 24.6 L MCV 88 MCH 29.1 MCHC 33.1 RDW 16.0 H Plt Count 509 H Seg Neutrophils % Not Reportable Lymphocytes % Not Reportable Monocytes % Not Reportable Eosinophils % Not Reportable Basophils % Not Reportable Absolute Neutrophils Not Reportable Absolute Lymphocytes Not Reportable Absolute Monocytes Not Reportable Absolute Eosinophils Not Reportable Absolute Basophils Not Reportable 08/30/17 06:56 NT-Pro-B Natriuret Pep 60 Impressions: Chest/Abdomen CTA 08/29/17 09:15 IMPRESSION: No CT angio evidence of acute pulmonary emboli or thoracic aortic dissection Since the CT exam 08/19/2017, patient has developed a trace left pleural effusion , bibasilar atelectasis, and retroperitoneal stranding around the pancreatic tail which could indicate pancreatitis Chest X-Ray 08/29/17 11:03 IMPRESSION: No pneumothorax post left jugular line placement, with line tip in the superior vena cava. Stable bandlike atelectasis left lung base Assessment & Plan - Diagnosis (1) C. difficile diarrhea Is this a current diagnosis for this admission?: Yes (2) Gastrointestinal bleeding, upper Is this a current diagnosis for this admission?: Yes - Plan Summary Plan Summary: A/ S/p repair perforated DU (08/19/17) S/p control bleeding DU (08/29/17) C. Diff. infection under Flagyl tx patient still has 2 loose stools/day with old blood Full liquid diet tolerated WBC still elevated (19k); however, it is trending down P/ OK to floor by my viewpoint Soft mechanical diet stop narcotics, Tylenol only for pain patient to be discharged once the WBC approaches normal value
--- NOTE | 2017-09-02 11:18 | PDOC PROGRESS REPORT ---
Subjective Progress Note for:: 09/02/17 Subjective:: Continues to improve. No overnight events. Has abdominal pain but decreased in intensity. Tolerating liquids. OK with advancing diet to softs. Awaiting transfer to the floor. Reason For Visit: GI BLEED ANEMIA,HYPOTENSION Physical Exam Vital Signs: Temp Pulse Resp BP Pulse Ox 98.1 F 90 18 104/68 97 09/02/17 04:00 09/02/17 07:31 09/02/17 06:00 09/01/17 19:32 09/01/17 15:00 Intake & Output 09/01/17 09/02/17 09/03/17 06:59 06:59 06:59 Intake Total 1917 800 Output Total 2675 1350 Balance -758 -550 Weight 122.9 kg 121.3 kg General appearance: PRESENT: no acute distress, cooperative, obese Mouth exam: PRESENT: moist Respiratory exam: PRESENT: symmetrical, unlabored Cardiovascular exam: PRESENT: +S1, +S2. ABSENT: tachycardia GI/Abdominal exam: PRESENT: normal bowel sounds, soft, tenderness - epigastric, mild Neurological exam: PRESENT: alert, awake, CN II-XII grossly intact Psychiatric exam: PRESENT: appropriate affect Skin exam: PRESENT: dry, intact Results Laboratory Results: 09/02/17 06:00 09/01/17 05:08 09/02/17 06:00 WBC 19.6 H RBC 2.80 L Hgb 8.1 L Hct 24.6 L MCV 88 MCH 29.1 MCHC 33.1 RDW 16.0 H Plt Count 509 H Seg Neutrophils % Not Reportable Lymphocytes % Not Reportable Monocytes % Not Reportable Eosinophils % Not Reportable Basophils % Not Reportable Absolute Neutrophils Not Reportable Absolute Lymphocytes Not Reportable Absolute Monocytes Not Reportable Absolute Eosinophils Not Reportable Absolute Basophils Not Reportable 08/30/17 06:56 NT-Pro-B Natriuret Pep 60 Impressions: Chest/Abdomen CTA 08/29/17 09:15 IMPRESSION: No CT angio evidence of acute pulmonary emboli or thoracic aortic dissection Since the CT exam 08/19/2017, patient has developed a trace left pleural effusion , bibasilar atelectasis, and retroperitoneal stranding around the pancreatic tail which could indicate pancreatitis Chest X-Ray 08/29/17 11:03 IMPRESSION: No pneumothorax post left jugular line placement, with line tip in the superior vena cava. Stable bandlike atelectasis left lung base Assessment & Plan - Diagnosis (1) Gastrointestinal bleeding, upper Is this a current diagnosis for this admission?: Yes Plan: Continues to improved. Found to have gastric ulcer s/p 7u pRBC and repair by surgery - H&H stable - Continue PPI - Will advance diet - Surgery following, appreciate continued recs. Per notes, will need definitive surgical management at a later time - Given improvement, transfer orders placed to medicine unit (2) Anemia Qualifiers: Anemia type: unspecified type Qualified Code(s): D64.9 - Anemia, unspecified Is this a current diagnosis for this admission?: Yes Plan: Per above. H&H stable. Continue daily CBCs. (3) Clostridium difficile colitis Is this a current diagnosis for this admission?: Yes Plan: Well controlled on PO Flagyl. Having loose BMs, 1-2 - Will repeat stool study today to help determine treatment course. (4) Hypotension Qualifiers: Hypotension type: unspecified hypotension type Qualified Code(s): I95.9 - Hypotension, unspecified Is this a current diagnosis for this admission?: Yes Plan: Resolved. Continue to monitor BPs per shift. Continuous cardiac cath lab radiology technologist discontinued. (5) Pituitary tumor Is this a current diagnosis for this admission?: Yes Plan: Continue Cabergoline twice a week - Time Time Spent with patient: Less than 15 minutes Medications reviewed and adjusted accordingly: Yes Within: within 48 hours - Plan Summary Plan Summary: Improving, transfer to floor
[2017-09-02] MEDS: OXYCODONE HCL IR 5 MG TABLET PO PRN ×2 (13:48→20:28)
[2017-09-02] MEDS: IPRATROPIUM/ALBUTEROL 0.5-2.5 MG/3 ML AMPUL NEB SCH (19:38)
[2017-09-03] MEDS: LEVOTHYROXINE SODIUM 0.1 MG TABLET PO SCH (05:59)
[2017-09-03] MEDS: OXYCODONE HCL IR 5 MG TABLET PO PRN ×2 (06:00→19:26)
[2017-09-03] MEDS: METRONIDAZOLE 500 MG TABLET PO SCH ×3 (06:00→21:29)
[2017-09-03] MEDS: LANSOPRAZOLE 30 MG TAB.RAP.DR PO SCH ×2 (06:00→17:55)
[2017-09-03 06:56] LABS: MEAN CORPUSCULAR HEMOGLOBIN 29.5 pg (27.0-33.4); MEAN CORPUSCULAR HGB CONC 33.3 g/dL (32.0-36.0); MEAN CORPUSCULAR VOLUME 89 fl (80-97); PLATELET COUNT 486 10^3/uL (150-450); RED BLOOD COUNT 2.59 10^6/uL (4.35-5.55); WHITE BLOOD COUNT 15.3 10^3/uL (4.0-10.5)
[2017-09-03 07:03] LABS: HEMOGLOBIN 7.6 g/dL (13.5-17.0)
[2017-09-03 07:28] LABS: ABSOLUTE LYMPHOCYTES# (MANUAL) 1.8 10^3/uL (0.5-4.7); ABSOLUTE MONOCYTES # (MANUAL) 1.1 10^3/uL (0.1-1.4); ABSOLUTE NEUTROPHILS# (MANUAL) 11.8 10^3/uL (1.7-8.2); BAND NEUTROPHILS % (MANUAL) 2 % (3-5); BASOPHILS % (MANUAL) 1 % (0-2); EOSINOPHILS % (MANUAL) 3 % (0-6); LYMPHOCYTES % (MANUAL) 12 % (13-45); METAMYELOCYTES % (MANUAL) 2 % (0); MONOCYTES % (MANUAL) 7 % (3-13); MYELOCYTES % (MANUAL) 2 % (0); SEGMENTED NEUTROPHILS % (MAN) 71 % (42-78); TOTAL CELLS COUNTED 100
[2017-09-03 07:30] LABS: ANISOCYTOSIS 3+; HYPOCHROMASIA SLIGHT; OVALOCYTES SLIGHT; PLATELET COMMENT INCREASED; POIKILOCYTOSIS SLIGHT; POLYCHROMASIA SLIGHT
[2017-09-03] MEDS: SUCRALFATE SUSP 1 GM/10 ML UDCUP PO SCH ×4 (07:58→21:29)
[2017-09-03] MEDS: IPRATROPIUM/ALBUTEROL 0.5-2.5 MG/3 ML AMPUL NEB SCH ×4 (08:30→19:32)
[2017-09-03] MEDS: LACTOBACILLUS ACIDOPHILUS 250 MG TAB PO SCH ×2 (09:47→17:55)
[2017-09-03] MEDS: PRENATAL VITAMIN W DHA CAPSULE PO SCH (09:47)
[2017-09-03] MEDS: TRAMADOL HCL 50 MG TABLET PO PRN ×2 (12:19→21:34)
--- NOTE | 2017-09-03 12:54 | PDOC PROGRESS REPORT ---
Subjective Progress Note for:: 09/03/17 Subjective:: c/o left sided abdominal pain. food tolerated, flatus present Reason For Visit: GI BLEED ANEMIA,HYPOTENSION Physical Exam Vital Signs: Temp Pulse Resp BP Pulse Ox 98.8 F 70 12 114/69 99 09/03/17 07:23 09/03/17 08:30 09/03/17 08:30 09/03/17 07:23 09/03/17 08:30 Intake & Output 09/02/17 09/03/17 09/04/17 06:59 06:59 06:59 Intake Total 800 1787 Output Total 1350 500 Balance -550 1287 Weight 121.3 kg 119.2 kg GI/Abdominal exam: PRESENT: soft, tenderness - left side Results Laboratory Results: 09/03/17 06:05 09/01/17 05:08 09/03/17 06:05 WBC 15.3 H RBC 2.59 L Hgb 7.6 L Hct 23.0 L MCV 89 MCH 29.5 MCHC 33.3 RDW 16.0 H Plt Count 486 H Seg Neutrophils % Not Reportable Lymphocytes % Not Reportable Monocytes % Not Reportable Eosinophils % Not Reportable Basophils % Not Reportable Absolute Neutrophils Not Reportable Absolute Lymphocytes Not Reportable Absolute Monocytes Not Reportable Absolute Eosinophils Not Reportable Absolute Basophils Not Reportable 08/30/17 06:56 NT-Pro-B Natriuret Pep 60 Impressions: Chest/Abdomen CTA 08/29/17 09:15 IMPRESSION: No CT angio evidence of acute pulmonary emboli or thoracic aortic dissection Since the CT exam 08/19/2017, patient has developed a trace left pleural effusion , bibasilar atelectasis, and retroperitoneal stranding around the pancreatic tail which could indicate pancreatitis Chest X-Ray 08/29/17 11:03 IMPRESSION: No pneumothorax post left jugular line placement, with line tip in the superior vena cava. Stable bandlike atelectasis left lung base Assessment & Plan - Diagnosis (1) C. difficile diarrhea Is this a current diagnosis for this admission?: Yes (2) Gastrointestinal bleeding, upper Is this a current diagnosis for this admission?: Yes - Plan Summary Plan Summary: A/ S/p repair perforated DU (08/19/17) S/p control bleeding DU (08/29/17) C. Diff. infection under Flagyl tx patient has flatus and stools Low residue liquid diet tolerated WBC it is trending down Left sided abdominal pain P/ US left abdomen to r/o fluid collection
--- NOTE | 2017-09-03 14:56 | RADIOLOGY REPORT (SQ) ---
EXAM DESCRIPTION: KUB/ABDOMEN (SINGLE VIEW) COMPLETED DATE/TIME: 09/03/2017 2:44 pm REASON FOR STUDY: Abdominal pain COMPARISON: CT abdomen pelvis 08/19/2017 CT chest 08/29/2017, chest films 08/29/2017 NUMBER OF VIEWS: One view. TECHNIQUE: Supine radiographic image of the abdomen acquired. LIMITATIONS: None. FINDINGS: BOWEL GAS PATTERN: Grossly normal bowel gas pattern. There is an endoscopically placed va scular occlusion clip in cecum/ascending colon. These are not MRI compatible. Prior any MRI exam KU B should be performed to see if this metallic clip has passed from the GI tract. CALCIFICATIONS: No suspicious calcifications. SOFT TISSUES: No gross mass or suggestion of organomegaly. HARDWARE: As above BONES: Diffuse spondylotic change throughout the thoracic and lumbar spine. Old bilateral rib fractu res OTHER: There is dense left basilar consolidation just above the hemidiaphragm atelectasis versus pneu monia. Prior CT angio chest 08/29/2017 demonstrated stranding around the tail of the pancreas in the left upp er quadrant retroperitoneum. This could be pancreatitis. Clinical correlation recommended. IMPRESSION: Nonobstructive bowel gas pattern. Left basilar consolidation atelectasis versus pneumonia Endoscopically placed clip in the cecum. This clip has the appearance of a vascular occlusion clip w hich is not MR compatible. Prior performing any MRI in this patient, KUB should be obtained to demon strate that this has passed from the bowel lumen Prior CT angio chest 08/29/2017 demonstrated inflammation in the retroperitoneum along the tail of the pancreas. Question pancreatitis. TECHNICAL DOCUMENTATION: JOB ID: [id number] [employer]- All Rights Reserved Reading location - IP/workstation name: [email or web address]
--- NOTE | 2017-09-03 15:41 | RADIOLOGY REPORT (SQ) ---
EXAM DESCRIPTION: U/S ABDOMEN LIMITED W/O DOP COMPLETED DATE/TIME: 09/03/2017 3:03 pm REASON FOR STUDY: abdominal pain post perforated bowel- eval for free fluid COMPARISON: None. TECHNIQUE: Dynamic and static grayscale images acquired of the abdomen and recorded on PACS. Aceo elsy selected color Doppler and spectral images recorded. LIMITATIONS: None. FINDINGS: A small amount of free fluid is seen in the left lower quadrant and right lower quadrant. IMPRESSION: Small amount nonspecific free fluid in lower abdomen. TECHNICAL DOCUMENTATION: JOB ID: [id number] [employer]- All Rights Reserved Reading location - IP/workstation name: [email or web address]
[2017-09-03 17:09] LABS: HEMATOCRIT 21.5 % (37.9-51.0); MEAN CORPUSCULAR HEMOGLOBIN 29.2 pg (27.0-33.4); MEAN CORPUSCULAR HGB CONC 33.4 g/dL (32.0-36.0); MEAN CORPUSCULAR VOLUME 88 fl (80-97); PLATELET COUNT 470 10^3/uL (150-450); RED BLOOD COUNT 2.46 10^6/uL (4.35-5.55); RED CELL DISTRIBUTION WIDTH 15.7 % (11.5-14.0); WHITE BLOOD COUNT 12.1 10^3/uL (4.0-10.5)
[2017-09-03 17:40] LABS: HEMOGLOBIN 7.2 g/dL (13.5-17.0)
[2017-09-03 17:44] LABS: ABSOLUTE LYMPHOCYTES# (MANUAL) 1.9 10^3/uL (0.5-4.7); ABSOLUTE MONOCYTES # (MANUAL) 0.5 10^3/uL (0.1-1.4); ABSOLUTE NEUTROPHILS# (MANUAL) 9.3 10^3/uL (1.7-8.2); BASOPHILS % (MANUAL) 0 % (0-2); EOSINOPHILS % (MANUAL) 3 % (0-6); LYMPHOCYTES % (MANUAL) 16 % (13-45); MONOCYTES % (MANUAL) 4 % (3-13); SEGMENTED NEUTROPHILS % (MAN) 77 % (42-78); TOTAL CELLS COUNTED 100
[2017-09-03 17:45] LABS: ANISOCYTOSIS SLIGHT; OVALOCYTES 1+; PLATELET COMMENT INCREASED; POIKILOCYTOSIS 1+; POLYCHROMASIA 1+
[2017-09-03] MEDS ORDERED: NORMAL SALINE 250 ML IV PRN (22:50)
--- NOTE | 2017-09-03 22:58 | PDOC PROGRESS REPORT ---
Subjective Progress Note for:: 09/03/17 Subjective:: 51-year-old gentleman with a past medical history of pituitary adenoma, hypothyroidism, nicotine dependence, COPD, and obstructive sleep apnea. Recently discarged on August 27 for perforated gastric ulcer repair, and treatment of C diff diarrhea. Represented on August 29 with melena and severe anemia. Received 3 units of PRBC. A small visible vessel was treated on EGD. A total of 7 units of PRBCs have been given. An elevated TSH was found, and his synthroid was increased to 250mcg. Surgery is following. Today he complained of continued abdominal pain. US of abdomen was ordered. KUB was ordered. Reason For Visit: GI BLEED ANEMIA,HYPOTENSION Physical Exam Vital Signs: Temp Pulse Resp BP Pulse Ox 98.6 F 70 20 113/58 L 100 09/03/17 19:18 09/03/17 19:18 09/03/17 19:18 09/03/17 19:18 09/03/17 19:18 Intake & Output 09/02/17 09/03/17 09/04/17 06:59 06:59 06:59 Intake Total 800 1787 683 Output Total 1350 500 Balance -550 1287 683 Weight 121.3 kg 119.2 kg General appearance: PRESENT: no acute distress, cooperative Head exam: PRESENT: atraumatic, normocephalic Eye exam: PRESENT: EOMI, PERRLA Ear exam: ABSENT: drainage, normal external ear exam Mouth exam: PRESENT: moist, neck supple Throat exam: ABSENT: tonsillar erythema, tonsillar exudate Neck exam: PRESENT: JVD. ABSENT: carotid bruit, full ROM Respiratory exam: ABSENT: rales, rhonchi, wheezes Cardiovascular exam: PRESENT: RRR, +S1, +S2 Pulses: PRESENT: normal radial pulses, normal dorsalis pedis pul Vascular exam: PRESENT: normal capillary refill. ABSENT: pallor GI/Abdominal exam: PRESENT: normal bowel sounds, soft, tenderness - diffusely tender. ABSENT: rigid Extremities exam: PRESENT: full ROM. ABSENT: clubbing, pedal edema Musculoskeletal exam: PRESENT: full ROM. ABSENT: ambulatory Neurological exam: PRESENT: alert, oriented to person, oriented to place, oriented to time, oriented to situation Psychiatric exam: ABSENT: agitated, anxious, unusual affect Focused psych exam: ABSENT: delusional, paranoid Skin exam: PRESENT: normal color. ABSENT: mottled Results Laboratory Results: 09/03/17 16:50 09/01/17 05:08 09/03/17 09/03/17 09/03/17 06:05 16:50 21:40 WBC 15.3 H 12.1 H RBC 2.59 L 2.46 L Hgb 7.6 L 7.2 L Hct 23.0 L 21.5 L MCV 89 88 MCH 29.5 29.2 MCHC 33.3 33.4 RDW 16.0 H 15.7 H Plt Count 486 H 470 H Seg Neutrophils % Not Reportable Not Reportable Lymphocytes % Not Reportable Not Reportable Monocytes % Not Reportable Not Reportable Eosinophils % Not Reportable Not Reportable Basophils % Not Reportable Not Reportable Absolute Neutrophils Not Reportable Not Reportable Absolute Lymphocytes Not Reportable Not Reportable Absolute Monocytes Not Reportable Not Reportable Absolute Eosinophils Not Reportable Not Reportable Absolute Basophils Not Reportable Not Reportable Stool Occult Blood POSITIVE 08/30/17 06:56 NT-Pro-B Natriuret Pep 60 Impressions: Chest/Abdomen CTA 08/29/17 09:15 IMPRESSION: No CT angio evidence of acute pulmonary emboli or thoracic aortic dissection Since the CT exam 08/19/2017, patient has developed a trace left pleural effusion , bibasilar atelectasis, and retroperitoneal stranding around the pancreatic tail which could indicate pancreatitis Chest X-Ray 08/29/17 11:03 IMPRESSION: No pneumothorax post left jugular line placement, with line tip in the superior vena cava. Stable bandlike atelectasis left lung base KUB X-Ray 09/03/17 00:00 IMPRESSION: Nonobstructive bowel gas pattern. Left basilar consolidation atelectasis versus pneumonia Endoscopically placed clip in the cecum. This clip has the appearance of a vascular occlusion clip which is not MR compatible. Prior performing any MRI in this patient, KUB should be obtained to demonstrate that this has passed from the bowel lumen Prior CT angio chest 08/29/2017 demonstrated inflammation in the retroperitoneum along the tail of the pancreas. Question pancreatitis. Abdomen Ultrasound 09/03/17 11:50 IMPRESSION: Small amount nonspecific free fluid in lower abdomen. Assessment & Plan - Diagnosis (1) Gastrointestinal bleeding, upper Is this a current diagnosis for this admission?: Yes Plan: s/p egd and intervention to exposed vessel with gi bleeding. gradual decline in Hgb on labs to 7.2. Will transfuse one additional unit of blood today. continue PPI. No active Bowel movement described recently, denies nausea or vomiting. (2) Anemia Qualifiers: Anemia type: unspecified type Qualified Code(s): D64.9 - Anemia, unspecified Is this a current diagnosis for this admission?: Yes Plan: monitor closely. He has received 7u of prbc this admission so far. (3) C. difficile diarrhea Is this a current diagnosis for this admission?: Yes Plan: Improving WBC and improved stooling frequency on Flagyl. Continue. (4) Upper GI bleed Is this a current diagnosis for this admission?: Yes Plan: No clinical signs of continued GI bleeding, but Hgb has been consistently decreasing. Will give 1 u of PRBC today. (5) Abdominal pain Is this a current diagnosis for this admission?: Yes Plan: checking US of abdomen and KUB. Abdominal pain is diffuse. - Time Time Spent with patient: 15-24 minutes - Inpatient Certification I certify that my determination is in accordance with my understanding of Medicare's requirements for reasonable and necessary INPATIENT services [42 CFR 412.3e].: Yes Medical Necessity: Need Close Monitoring Due to Risk of Patient Decompensation
[2017-09-04] MEDS: OXYCODONE HCL IR 5 MG TABLET PO PRN ×2 (02:47→11:34)
[2017-09-04 03:10] LABS: HEMATOCRIT 22.1 % (37.9-51.0); MEAN CORPUSCULAR HEMOGLOBIN 28.9 pg (27.0-33.4); MEAN CORPUSCULAR HGB CONC 32.9 g/dL (32.0-36.0); MEAN CORPUSCULAR VOLUME 88 fl (80-97); PLATELET COUNT 482 10^3/uL (150-450); RED BLOOD COUNT 2.52 10^6/uL (4.35-5.55); WHITE BLOOD COUNT 11.4 10^3/uL (4.0-10.5)
[2017-09-04 03:13] LABS: HEMOGLOBIN 7.3 g/dL (13.5-17.0)
[2017-09-04] MEDS: LEVOTHYROXINE SODIUM 0.1 MG TABLET PO SCH (05:26)
[2017-09-04] MEDS: METRONIDAZOLE 500 MG TABLET PO SCH ×2 (05:27→14:03)
[2017-09-04] MEDS: LANSOPRAZOLE 30 MG TAB.RAP.DR PO SCH (05:27)
[2017-09-04] MEDS: IPRATROPIUM/ALBUTEROL 0.5-2.5 MG/3 ML AMPUL NEB SCH ×4 (08:33→20:19)
[2017-09-04 08:37] LABS: HEMATOCRIT 25.3 % (37.9-51.0); HEMOGLOBIN 8.5 g/dL (13.5-17.0); MEAN CORPUSCULAR HEMOGLOBIN 29.5 pg (27.0-33.4); MEAN CORPUSCULAR HGB CONC 33.5 g/dL (32.0-36.0); MEAN CORPUSCULAR VOLUME 88 fl (80-97); PLATELET COUNT 507 10^3/uL (150-450); RED BLOOD COUNT 2.88 10^6/uL (4.35-5.55); RED CELL DISTRIBUTION WIDTH 15.4 % (11.5-14.0); WHITE BLOOD COUNT 11.2 10^3/uL (4.0-10.5)
[2017-09-04 08:57] LABS: ALBUMIN 2.5 g/dL (3.5-5.0); ANION GAP 5 (5-19); BLOOD UREA NITROGEN 6 mg/dL (7-20); CALCIUM 8.5 mg/dL (8.4-10.2); CARBON DIOXIDE 33 mmol/L (22-30); CHLORIDE 106 mmol/L (98-107); GLUCOSE 94 mg/dL (75-110); PHOSPHORUS 4.1 mg/dL (2.5-4.5); POTASSIUM 3.4 mmol/L (3.6-5.0); SODIUM 144.4 mmol/L (137-145)
[2017-09-04] MEDS: SUCRALFATE SUSP 1 GM/10 ML UDCUP PO SCH ×4 (08:57→21:42)
[2017-09-04 09:18] LABS: ABSOLUTE LYMPHOCYTES# (MANUAL) 1.2 10^3/uL (0.5-4.7); ABSOLUTE MONOCYTES # (MANUAL) 0.4 10^3/uL (0.1-1.4); ABSOLUTE NEUTROPHILS# (MANUAL) 8.8 10^3/uL (1.7-8.2); BAND NEUTROPHILS % (MANUAL) 2 % (3-5); BASOPHILS % (MANUAL) 0 % (0-2); EOSINOPHILS % (MANUAL) 6 % (0-6); LYMPHOCYTES % (MANUAL) 11 % (13-45); MONOCYTES % (MANUAL) 4 % (3-13); SEGMENTED NEUTROPHILS % (MAN) 77 % (42-78); TOTAL CELLS COUNTED 100
[2017-09-04 09:20] LABS: ANISOCYTOSIS SLIGHT; OVALOCYTES SLIGHT; PLATELET COMMENT INCREASED; POIKILOCYTOSIS SLIGHT; POLYCHROMASIA 1+
[2017-09-04] MEDS ORDERED: POTASSIUM CHLORIDE 10 MEQ CAPSULE.ER PO ONE (10:33)
[2017-09-04] MEDS ORDERED: NORMAL SALINE 1000 ML 1,000 ML IV PRN (10:44)
[2017-09-04] MEDS: LACTOBACILLUS ACIDOPHILUS 250 MG TAB PO SCH ×2 (11:23→17:52)
[2017-09-04] MEDS: PRENATAL VITAMIN W DHA CAPSULE PO SCH (11:23)
[2017-09-04 12:43] LABS: HEMATOCRIT 24.5 % (37.9-51.0); HEMOGLOBIN 8.2 g/dL (13.5-17.0); MEAN CORPUSCULAR HEMOGLOBIN 29.9 pg (27.0-33.4); MEAN CORPUSCULAR HGB CONC 33.5 g/dL (32.0-36.0); MEAN CORPUSCULAR VOLUME 89 fl (80-97); PLATELET COUNT 479 10^3/uL (150-450); RED BLOOD COUNT 2.73 10^6/uL (4.35-5.55); RED CELL DISTRIBUTION WIDTH 15.9 % (11.5-14.0); WHITE BLOOD COUNT 11.1 10^3/uL (4.0-10.5)
[2017-09-04] MEDS: HYDROMORPHONE HCL INJ/PF 2 MG/ML AMPULE IV PRN ×2 (14:05→17:53)
[2017-09-04] MEDS ORDERED: PANTOPRAZOLE SODIUM 40 MG VIAL IV ONE (15:15)
[2017-09-04] MEDS: VANCOMYCIN HCL INJ 500 MG VIAL PO SCH ×2 (17:52→23:40)
--- NOTE | 2017-09-04 19:44 | PDOC PROGRESS REPORT ---
Subjective Progress Note for:: 09/04/17 Subjective:: comfortable, tolerating po well, normal defecation and urination, denies abdominal pain Reason For Visit: GI BLEED ANEMIA,HYPOTENSION Physical Exam Vital Signs: Temp Pulse Resp BP Pulse Ox 99.1 F 62 16 121/68 98 09/04/17 15:14 09/04/17 16:39 09/04/17 16:39 09/04/17 15:14 09/04/17 16:39 Intake & Output 09/03/17 09/04/17 09/05/17 06:59 06:59 06:59 Intake Total 1787 1263 887 Output Total 500 0 Balance 1287 1263 887 Weight 119.2 kg 118.4 kg General appearance: PRESENT: no acute distress, cooperative Respiratory exam: PRESENT: clear to auscultation miguel ángel Cardiovascular exam: PRESENT: RRR GI/Abdominal exam: PRESENT: normal bowel sounds, soft Results Laboratory Results: 09/04/17 12:05 09/04/17 08:15 09/03/17 09/04/17 09/04/17 21:40 01:00 02:45 WBC 11.4 H RBC 2.52 L Hgb 7.3 L Hct 22.1 L MCV 88 MCH 28.9 MCHC 32.9 RDW 16.0 H Plt Count 482 H Seg Neutrophils % Lymphocytes % Monocytes % Eosinophils % Basophils % Absolute Neutrophils Absolute Lymphocytes Absolute Monocytes Absolute Eosinophils Absolute Basophils Sodium Potassium Chloride Carbon Dioxide Anion Gap BUN Creatinine Est GFR ( Amer) Est GFR (Non-Af Amer) Glucose Calcium Phosphorus Magnesium Albumin Lipase Stool Occult Blood POSITIVE Blood Type O POSITIVE Antibody Screen NEGATIVE 09/04/17 09/04/17 09/04/17 08:15 08:15 08:15 WBC 11.2 H RBC 2.88 L Hgb 8.5 L Hct 25.3 L MCV 88 MCH 29.5 MCHC 33.5 RDW 15.4 H Plt Count 507 H Seg Neutrophils % Not Reportable Lymphocytes % Not Reportable Monocytes % Not Reportable Eosinophils % Not Reportable Basophils % Not Reportable Absolute Neutrophils Not Reportable Absolute Lymphocytes Not Reportable Absolute Monocytes Not Reportable Absolute Eosinophils Not Reportable Absolute Basophils Not Reportable Sodium 144.4 Potassium 3.4 L Chloride 106 Carbon Dioxide 33 H Anion Gap 5 BUN 6 L Creatinine 0.75 Est GFR ( Amer) > 60 Est GFR (Non-Af Amer) > 60 Glucose 94 Calcium 8.5 Phosphorus 4.1 Magnesium 2.2 Albumin 2.5 L Lipase 403.3 H Stool Occult Blood Blood Type Antibody Screen 09/04/17 12:05 WBC 11.1 H RBC 2.73 L Hgb 8.2 L Hct 24.5 L MCV 89 MCH 29.9 MCHC 33.5 RDW 15.9 H Plt Count 479 H Seg Neutrophils % Lymphocytes % Monocytes % Eosinophils % Basophils % Absolute Neutrophils Absolute Lymphocytes Absolute Monocytes Absolute Eosinophils Absolute Basophils Sodium Potassium Chloride Carbon Dioxide Anion Gap BUN Creatinine Est GFR ( Amer) Est GFR (Non-Af Amer) Glucose Calcium Phosphorus Magnesium Albumin Lipase Stool Occult Blood Blood Type Antibody Screen 08/30/17 06:56 NT-Pro-B Natriuret Pep 60 Impressions: Chest/Abdomen CTA 08/29/17 09:15 IMPRESSION: No CT angio evidence of acute pulmonary emboli or thoracic aortic dissection Since the CT exam 08/19/2017, patient has developed a trace left pleural effusion , bibasilar atelectasis, and retroperitoneal stranding around the pancreatic tail which could indicate pancreatitis Chest X-Ray 08/29/17 11:03 IMPRESSION: No pneumothorax post left jugular line placement, with line tip in the superior vena cava. Stable bandlike atelectasis left lung base KUB X-Ray 09/03/17 00:00 IMPRESSION: Nonobstructive bowel gas pattern. Left basilar consolidation atelectasis versus pneumonia Endoscopically placed clip in the cecum. This clip has the appearance of a vascular occlusion clip which is not MR compatible. Prior performing any MRI in this patient, KUB should be obtained to demonstrate that this has passed from the bowel lumen Prior CT angio chest 08/29/2017 demonstrated inflammation in the retroperitoneum along the tail of the pancreas. Question pancreatitis. Abdomen Ultrasound 09/03/17 11:50 IMPRESSION: Small amount nonspecific free fluid in lower abdomen. Assessment & Plan - Diagnosis (1) C. difficile diarrhea Is this a current diagnosis for this admission?: Yes (2) Gastrointestinal bleeding, upper Is this a current diagnosis for this admission?: Yes - Plan Summary Plan Summary: A/ S/P repair perforated DU S/P endoscopic control of bleeding DU Stable H/H Abdomen soft good appetite Normal defecation and urination P/ Patient can be discharged to home by the General Surgery viewpoint at anytime start oral PPI (Prevacid BID) start Fe with vitamin C BID po x months Continue Carafate 1 gr po qid x 3 months Follow up with Surgery Clinic in 2 weeks with SAMANTA Wesley Check CBC in 2 weeks Repeat EGD in 3 months Discontinue narcotics as they are not necessary so far after surgery. Tylenol only for pain. Can stop antibiotics by the General Surgery viewpoint
[2017-09-04] MEDS: METRONIDAZOLE 500 MG/NS RTU 500 MG/100 ML RTUPB IV SCH (21:43)
[2017-09-04] MEDS ORDERED: PANTOPRAZOLE SODIUM 40 MG VIAL IV SCH (22:00)
--- NOTE | 2017-09-04 23:50 | PDOC PROGRESS REPORT ---
Subjective Progress Note for:: 09/04/17 Subjective:: 51-year-old gentleman with a past medical history of pituitary adenoma, hypothyroidism, nicotine dependence, COPD, and obstructive sleep apnea. Recently discarged on August 27 for perforated gastric ulcer repair, and treatment of C diff diarrhea. Represented on August 29 with melena and severe anemia. Received 3 units of PRBC. A small visible vessel was treated on EGD. A total of 7 units of PRBCs have been given. An elevated TSH was found, and his synthroid was increased to 250mcg. Surgery is following. Today he complained of continued abdominal pain. US of abdomen was ordered. KUB was ordered. KUB showed a possible pancreatitis, Lipase was checked and was not found to be elevated. US of abdomen had a small amount of fluid in his lower pelvic region noted. Hgb appears to be stabilizing somewhat. Patient did have melena on the prior evening with positive Hemacult testing. Due to the and patient's request, I did call [facility] today to inquire about a possible Transfer. [facility] is willing to take the patient if his GI Bleeding becomes more severe, but otherwise agreed that he should be monitored her in [place] in his current condition. This was relayed back to the patient, and he was satisfied with this plan. His believes that they were discharged too soon on the prior admission, so I would advise to go slow on this discharge. Reason For Visit: GI BLEED ANEMIA,HYPOTENSION Physical Exam Vital Signs: Temp Pulse Resp BP Pulse Ox 97.3 F 60 17 115/71 96 09/04/17 19:32 09/04/17 20:19 09/04/17 20:19 09/04/17 19:32 09/04/17 20:19 Intake & Output 09/03/17 09/04/17 09/05/17 06:59 06:59 06:59 Intake Total 1787 1263 887 Output Total 500 0 Balance 1287 1263 887 Weight 119.2 kg 118.4 kg General appearance: PRESENT: no acute distress, cooperative Head exam: PRESENT: atraumatic, normocephalic Eye exam: PRESENT: EOMI, PERRLA Ear exam: PRESENT: normal external ear exam. ABSENT: drainage Mouth exam: PRESENT: moist, neck supple Throat exam: ABSENT: tonsillar erythema, tonsillar exudate Neck exam: ABSENT: tenderness, thyromegaly Respiratory exam: ABSENT: crackles, rales, rhonchi, wheezes Cardiovascular exam: PRESENT: RRR, +S1, +S2 Pulses: PRESENT: normal radial pulses, normal dorsalis pedis pul Vascular exam: PRESENT: normal capillary refill. ABSENT: pallor GI/Abdominal exam: PRESENT: normal bowel sounds, soft. ABSENT: rigid Extremities exam: ABSENT: joint swelling, pedal edema Musculoskeletal exam: PRESENT: full ROM. ABSENT: deformity Neurological exam: PRESENT: alert, oriented to person, oriented to place, oriented to time, oriented to situation, CN II-XII grossly intact Psychiatric exam: ABSENT: flat affect, manic Focused psych exam: ABSENT: catatonic, paranoid Skin exam: PRESENT: normal color. ABSENT: mottled Results Laboratory Results: 09/04/17 12:05 09/04/17 08:15 09/04/17 09/04/17 09/04/17 01:00 02:45 08:15 WBC 11.4 H 11.2 H RBC 2.52 L 2.88 L Hgb 7.3 L 8.5 L Hct 22.1 L 25.3 L MCV 88 88 MCH 28.9 29.5 MCHC 32.9 33.5 RDW 16.0 H 15.4 H Plt Count 482 H 507 H Seg Neutrophils % Not Reportable Lymphocytes % Not Reportable Monocytes % Not Reportable Eosinophils % Not Reportable Basophils % Not Reportable Absolute Neutrophils Not Reportable Absolute Lymphocytes Not Reportable Absolute Monocytes Not Reportable Absolute Eosinophils Not Reportable Absolute Basophils Not Reportable Sodium Potassium Chloride Carbon Dioxide Anion Gap BUN Creatinine Est GFR ( Amer) Est GFR (Non-Af Amer) Glucose Calcium Phosphorus Magnesium Albumin Lipase Blood Type O POSITIVE Antibody Screen NEGATIVE 09/04/17 09/04/17 09/04/17 08:15 08:15 12:05 WBC 11.1 H RBC 2.73 L Hgb 8.2 L Hct 24.5 L MCV 89 MCH 29.9 MCHC 33.5 RDW 15.9 H Plt Count 479 H Seg Neutrophils % Lymphocytes % Monocytes % Eosinophils % Basophils % Absolute Neutrophils Absolute Lymphocytes Absolute Monocytes Absolute Eosinophils Absolute Basophils Sodium 144.4 Potassium 3.4 L Chloride 106 Carbon Dioxide 33 H Anion Gap 5 BUN 6 L Creatinine 0.75 Est GFR ( Amer) > 60 Est GFR (Non-Af Amer) > 60 Glucose 94 Calcium 8.5 Phosphorus 4.1 Magnesium 2.2 Albumin 2.5 L Lipase 403.3 H Blood Type Antibody Screen 08/30/17 06:56 NT-Pro-B Natriuret Pep 60 Impressions: Chest/Abdomen CTA 08/29/17 09:15 IMPRESSION: No CT angio evidence of acute pulmonary emboli or thoracic aortic dissection Since the CT exam 08/19/2017, patient has developed a trace left pleural effusion , bibasilar atelectasis, and retroperitoneal stranding around the pancreatic tail which could indicate pancreatitis Chest X-Ray 08/29/17 11:03 IMPRESSION: No pneumothorax post left jugular line placement, with line tip in the superior vena cava. Stable bandlike atelectasis left lung base KUB X-Ray 09/03/17 00:00 IMPRESSION: Nonobstructive bowel gas pattern. Left basilar consolidation atelectasis versus pneumonia Endoscopically placed clip in the cecum. This clip has the appearance of a vascular occlusion clip which is not MR compatible. Prior performing any MRI in this patient, KUB should be obtained to demonstrate that this has passed from the bowel lumen Prior CT angio chest 08/29/2017 demonstrated inflammation in the retroperitoneum along the tail of the pancreas. Question pancreatitis. Abdomen Ultrasound 09/03/17 11:50 IMPRESSION: Small amount nonspecific free fluid in lower abdomen. Assessment & Plan - Diagnosis (1) Gastrointestinal bleeding, upper Is this a current diagnosis for this admission?: Yes Plan: Melena reported on prior night, hemacult + continue to monitor Hgb. stable vitals continue PPI IV BID, sucralfate. Surgery is following. If significant bleed occurs, consider [facility]. (2) Anemia Qualifiers: Anemia type: unspecified type Qualified Code(s): D64.9 - Anemia, unspecified Is this a current diagnosis for this admission?: Yes Plan: continue to monitor Hgb (3) C. difficile diarrhea Is this a current diagnosis for this admission?: Yes Plan: I asked pharmacy about c diff treatment details: 08/19-08/24 IV flagyl 08/24-08/28, PO Flagyl 08/29 -08/30 PO Vanc 08/29-08/31 IV flagyl 08/31-09/03 PO Flagyl patient has exceeded a two week course, but is still describing loose stools. frequency has improved significantly. Will continue antibiotics at present. (4) Upper GI bleed Is this a current diagnosis for this admission?: Yes Plan: continue to monitor Hgb. (5) Abdominal pain Is this a current diagnosis for this admission?: Yes Plan: significant improvement in abdominal pain today. - Time Time Spent with patient: 15-24 minutes - Inpatient Certification I certify that my determination is in accordance with my understanding of Medicare's requirements for reasonable and necessary INPATIENT services [42 CFR 412.3e].: Yes Medical Necessity: Need Close Monitoring Due to Risk of Patient Decompensation
[2017-09-05] MEDS: TRAMADOL HCL 50 MG TABLET PO PRN ×2 (01:17→08:19)
[2017-09-05] MEDS ORDERED: LANSOPRAZOLE 30 MG TAB.RAP.DR PO SCH (06:00)
[2017-09-05] MEDS: VANCOMYCIN HCL INJ 500 MG VIAL PO SCH ×2 (06:11→12:43)
[2017-09-05] MEDS: LEVOTHYROXINE SODIUM 0.1 MG TABLET PO SCH (06:11)
[2017-09-05] MEDS: METRONIDAZOLE 500 MG/NS RTU 500 MG/100 ML RTUPB IV SCH (06:13)
[2017-09-05 06:22] LABS: HEMATOCRIT 25.7 % (37.9-51.0); HEMOGLOBIN 8.8 g/dL (13.5-17.0); MEAN CORPUSCULAR HEMOGLOBIN 30.9 pg (27.0-33.4); MEAN CORPUSCULAR HGB CONC 34.3 g/dL (32.0-36.0); MEAN CORPUSCULAR VOLUME 90 fl (80-97); PLATELET COUNT 517 10^3/uL (150-450); RED BLOOD COUNT 2.86 10^6/uL (4.35-5.55); RED CELL DISTRIBUTION WIDTH 15.9 % (11.5-14.0); WHITE BLOOD COUNT 10.1 10^3/uL (4.0-10.5)
[2017-09-05 06:31] LABS: ALBUMIN 2.4 g/dL (3.5-5.0); ANION GAP 7 (5-19); BLOOD UREA NITROGEN 5 mg/dL (7-20); CALCIUM 8.6 mg/dL (8.4-10.2); CARBON DIOXIDE 33 mmol/L (22-30); CHLORIDE 107 mmol/L (98-107); GLUCOSE 96 mg/dL (75-110); PHOSPHORUS 4.1 mg/dL (2.5-4.5); POTASSIUM 3.6 mmol/L (3.6-5.0); SODIUM 146.8 mmol/L (137-145)
[2017-09-05 06:54] LABS: ABSOLUTE MONOCYTES # (MANUAL) 0.9 10^3/uL (0.1-1.4); BASOPHILS % (MANUAL) 0 % (0-2); EOSINOPHILS % (MANUAL) 2 % (0-6); LYMPHOCYTES % (MANUAL) 10 % (13-45); METAMYELOCYTES % (MANUAL) 1 % (0); MONOCYTES % (MANUAL) 9 % (3-13); SEGMENTED NEUTROPHILS % (MAN) 78 % (42-78); TOTAL CELLS COUNTED 100
[2017-09-05 06:57] LABS: ANISOCYTOSIS 1+; HYPOCHROMASIA SLIGHT; PLATELET COMMENT INCREASED; POLYCHROMASIA 1+; TOXIC GRANULATION SLIGHT
[2017-09-05] MEDS: SUCRALFATE SUSP 1 GM/10 ML UDCUP PO SCH ×2 (08:19→12:43)
[2017-09-05] MEDS: IPRATROPIUM/ALBUTEROL 0.5-2.5 MG/3 ML AMPUL NEB SCH ×2 (08:39→13:10)
[2017-09-05] MEDS ORDERED: ASCORBIC ACID 500 MG TABLET PO SCH (10:00)
[2017-09-05] MEDS ORDERED: IRON POLYSACCHARIDES COMPLEX 150 MG CAPSULE PO SCH (10:00)
[2017-09-05] MEDS: LACTOBACILLUS ACIDOPHILUS 250 MG TAB PO SCH (11:54)
[2017-09-05] MEDS: PRENATAL VITAMIN W DHA CAPSULE PO SCH (11:56)
[2017-09-05 12:59] VITALS: BP 114/57
--- NOTE | 2017-09-05 15:59 | PDOC PROGRESS REPORT ---
Subjective Progress Note for:: 09/05/17 Subjective:: This is a 51-year-old male status post laparotomy for a perforated gastric ulcer. He represented with profuse upper GI bleeding. The patient underwent EGD with clipping and cauterization of the visible vessel. Today, the patient reports feeling weak, but denies any hematochezia or hematemesis. Denies chest pain, shortness of breath, orthostasis, blurry vision, headache. Reason For Visit: GI BLEED ANEMIA,HYPOTENSION Physical Exam Vital Signs: Temp Pulse Resp BP Pulse Ox 98.5 F 82 18 114/57 L 93 09/05/17 12:54 09/05/17 12:54 09/05/17 12:54 09/05/17 12:54 09/05/17 12:54 Intake & Output 09/04/17 09/05/17 09/06/17 06:59 06:59 06:59 Intake Total 1263 2992 592 Output Total 0 Balance 1263 2992 592 Weight 118.4 kg 118.7 kg General appearance: PRESENT: no acute distress Head exam: PRESENT: atraumatic, normocephalic Eye exam: PRESENT: EOMI, PERRLA. ABSENT: scleral icterus Mouth exam: PRESENT: moist, neck supple Neck exam: ABSENT: lymphadenopathy, meningismus, tenderness, thyromegaly, tracheal deviation Respiratory exam: PRESENT: clear to auscultation miguel ángel. ABSENT: chest wall tenderness, tachypnea Cardiovascular exam: PRESENT: RRR Pulses: PRESENT: normal radial pulses Vascular exam: PRESENT: pallor. ABSENT: normal capillary refill GI/Abdominal exam: PRESENT: soft, other - Incision is clean, dry, intact.. ABSENT: distended, tenderness Rectal exam: PRESENT: deferred Extremities exam: ABSENT: clubbing Neurological exam: PRESENT: alert, awake, oriented to person, oriented to place , oriented to time, oriented to situation, CN II-XII grossly intact. ABSENT: motor sensory deficit Psychiatric exam: ABSENT: agitated, anxious, depressed Skin exam: PRESENT: pallor. ABSENT: erythema, jaundice, rash Results Laboratory Results: 09/05/17 05:15 09/05/17 05:15 09/05/17 09/05/17 05:15 05:15 WBC 10.1 RBC 2.86 L Hgb 8.8 L Hct 25.7 L MCV 90 MCH 30.9 MCHC 34.3 RDW 15.9 H Plt Count 517 H Seg Neutrophils % Not Reportable Lymphocytes % Not Reportable Monocytes % Not Reportable Eosinophils % Not Reportable Basophils % Not Reportable Absolute Neutrophils Not Reportable Absolute Lymphocytes Not Reportable Absolute Monocytes Not Reportable Absolute Eosinophils Not Reportable Absolute Basophils Not Reportable Sodium 146.8 H Potassium 3.6 Chloride 107 Carbon Dioxide 33 H Anion Gap 7 BUN 5 L Creatinine 0.80 Est GFR ( Amer) > 60 Est GFR (Non-Af Amer) > 60 Glucose 96 Calcium 8.6 Phosphorus 4.1 Albumin 2.4 L 08/30/17 06:56 NT-Pro-B Natriuret Pep 60 Impressions: Chest/Abdomen CTA 08/29/17 09:15 IMPRESSION: No CT angio evidence of acute pulmonary emboli or thoracic aortic dissection Since the CT exam 08/19/2017, patient has developed a trace left pleural effusion , bibasilar atelectasis, and retroperitoneal stranding around the pancreatic tail which could indicate pancreatitis Chest X-Ray 08/29/17 11:03 IMPRESSION: No pneumothorax post left jugular line placement, with line tip in the superior vena cava. Stable bandlike atelectasis left lung base KUB X-Ray 09/03/17 00:00 IMPRESSION: Nonobstructive bowel gas pattern. Left basilar consolidation atelectasis versus pneumonia Endoscopically placed clip in the cecum. This clip has the appearance of a vascular occlusion clip which is not MR compatible. Prior performing any MRI in this patient, KUB should be obtained to demonstrate that this has passed from the bowel lumen Prior CT angio chest 08/29/2017 demonstrated inflammation in the retroperitoneum along the tail of the pancreas. Question pancreatitis. Abdomen Ultrasound 09/03/17 11:50 IMPRESSION: Small amount nonspecific free fluid in lower abdomen. Assessment & Plan - Diagnosis (1) Anemia Qualifiers: Anemia type: unspecified type Qualified Code(s): D64.9 - Anemia, unspecified Is this a current diagnosis for this admission?: Yes (2) Gastrointestinal bleeding, upper Is this a current diagnosis for this admission?: Yes - Plan Summary Plan Summary: This is a 51-year-old male status post EGD for upper GI bleeding. The patient has a stable hemoglobin. His vital signs are stable. He denies any hematochezia or hematemesis. The patient is requesting discharge home today. I believe that he is medically fit for discharge. I will write prescriptions for iron, PPI, Carafate, and Ultram. The patient should see me next week with a repeat hemoglobin. I have encouraged the patient and his to contact me immediately with any new questions or problems.
--- NOTE | 2017-09-05 21:31 | PDOC DISCHARGE SUMMARY ---
General - Admit/Disc Date/PCP Admission Date/Primary Care Provider: 08/29/17 16:53 Discharge Date: 09/05/17 - Additional Information Resuscitation Status: Full Code Discharge Diet: As Tolerated Prescriptions: Ascorbic Acid [Vitamin C 500 mg Tablet] 500 mg PO BID 30 Days #60 tablet Iron Polysaccharides Complex [Nu-Iron 150 Capsule] 150 mg PO BID 30 Days #60 capsule Lansoprazole [Prevacid 30 mg Odt Tablet] 30 mg PO BID@0600,1700 30 Days #60 tab.rap Vit/Dha [ Multi + Dha Capsule] 1 cap PO DAILY 30 Days #30 capsule Home Medications: Cabergoline [Cabergoline 0.5 mg Tablet] 0.25 mg PO TUFR@1000 08/19/17 Levothyroxine Sodium [Synthroid 0.112 mg Tablet] 0.224 mg PO DAILY 08/19/17 Oxycodone HCl/Acetaminophen [Percocet 5-325 mg Tablet] 1 tab PO PRN PRN Ascorbic Acid [Vitamin C 500 mg Tablet] 500 mg PO BID 30 Days #60 tablet Iron Polysaccharides Complex [Nu-Iron 150 Capsule] 150 mg PO BID 30 Days #60 capsule 09/05/17 Lansoprazole [Prevacid 30 mg Odt Tablet] 30 mg PO BID@0600,1700 30 Days #60 tab.rap 09/05/17 Vit/Dha [ Multi + Dha Capsule] 1 cap PO DAILY 30 Days #30 capsule 09/05/17 Sucralfate [Carafate Susp 1 gm/10 ml Udcup] 1 gm PO ACHS udc 09/05/17 History of Present Illness History of Present Illness: JOSEPH CAREY is a 51 year old male Physical Exam Vital Signs: Temp Pulse Resp BP Pulse Ox 98.5 F 82 18 132/77 H 93 09/05/17 10:58 09/05/17 10:58 09/05/17 10:58 09/05/17 10:58 09/05/17 10:58 Intake & Output 09/04/17 09/05/17 09/06/17 06:59 06:59 06:59 Intake Total 1263 2992 592 Output Total 0 Balance 1263 2992 592 Weight 118.4 kg 118.7 kg Results Laboratory Results: 09/05/17 05:15 09/05/17 05:15 09/04/17 09/05/17 09/05/17 12:05 05:15 05:15 WBC 11.1 H 10.1 RBC 2.73 L 2.86 L Hgb 8.2 L 8.8 L Hct 24.5 L 25.7 L MCV 89 90 MCH 29.9 30.9 MCHC 33.5 34.3 RDW 15.9 H 15.9 H Plt Count 479 H 517 H Seg Neutrophils % Not Reportable Lymphocytes % Not Reportable Monocytes % Not Reportable Eosinophils % Not Reportable Basophils % Not Reportable Absolute Neutrophils Not Reportable Absolute Lymphocytes Not Reportable Absolute Monocytes Not Reportable Absolute Eosinophils Not Reportable Absolute Basophils Not Reportable Sodium 146.8 H Potassium 3.6 Chloride 107 Carbon Dioxide 33 H Anion Gap 7 BUN 5 L Creatinine 0.80 Est GFR ( Amer) > 60 Est GFR (Non-Af Amer) > 60 Glucose 96 Calcium 8.6 Phosphorus 4.1 Albumin 2.4 L 08/30/17 06:56 NT-Pro-B Natriuret Pep 60 Impressions: Chest/Abdomen CTA 08/29/17 09:15 IMPRESSION: No CT angio evidence of acute pulmonary emboli or thoracic aortic dissection Since the CT exam 08/19/2017, patient has developed a trace left pleural effusion , bibasilar atelectasis, and retroperitoneal stranding around the pancreatic tail which could indicate pancreatitis Chest X-Ray 08/29/17 11:03 IMPRESSION: No pneumothorax post left jugular line placement, with line tip in the superior vena cava. Stable bandlike atelectasis left lung base KUB X-Ray 09/03/17 00:00 IMPRESSION: Nonobstructive bowel gas pattern. Left basilar consolidation atelectasis versus pneumonia Endoscopically placed clip in the cecum. This clip has the appearance of a vascular occlusion clip which is not MR compatible. Prior performing any MRI in this patient, KUB should be obtained to demonstrate that this has passed from the bowel lumen Prior CT angio chest 08/29/2017 demonstrated inflammation in the retroperitoneum along the tail of the pancreas. Question pancreatitis. Abdomen Ultrasound 09/03/17 11:50 IMPRESSION: Small amount nonspecific free fluid in lower abdomen.
--- NOTE | 2017-09-05 21:33 | PDOC DISCHARGE SUMMARY ---
General - Admit/Disc Date/PCP Admission Date/Primary Care Provider: 08/29/17 16:53 Discharge Date: 09/05/17 - Additional Information Resuscitation Status: Full Code Discharge Diet: As Tolerated Discharge Activity: Activity As Tolerated, Balance Activity w/Rest Prescriptions: Ascorbic Acid [Vitamin C 500 mg Tablet] 500 mg PO BID 30 Days #60 tablet Iron Polysaccharides Complex [Nu-Iron 150 Capsule] 150 mg PO BID 30 Days #60 capsule Lansoprazole [Prevacid 30 mg Odt Tablet] 30 mg PO BID@0600,1700 30 Days #60 tab.rap Vit/Dha [ Multi + Dha Capsule] 1 cap PO DAILY 30 Days #30 capsule Home Medications: Cabergoline [Cabergoline 0.5 mg Tablet] 0.25 mg PO TUFR@1000 08/19/17 Levothyroxine Sodium [Synthroid 0.112 mg Tablet] 0.224 mg PO DAILY 08/19/17 Oxycodone HCl/Acetaminophen [Percocet 5-325 mg Tablet] 1 tab PO PRN PRN Ascorbic Acid [Vitamin C 500 mg Tablet] 500 mg PO BID 30 Days #60 tablet Iron Polysaccharides Complex [Nu-Iron 150 Capsule] 150 mg PO BID 30 Days #60 capsule 09/05/17 Lansoprazole [Prevacid 30 mg Odt Tablet] 30 mg PO BID@0600,1700 30 Days #60 tab.rap 09/05/17 Vit/Dha [ Multi + Dha Capsule] 1 cap PO DAILY 30 Days #30 capsule 09/05/17 Sucralfate [Carafate Susp 1 gm/10 ml Udcup] 1 gm PO ACHS udc 09/05/17 Physical Exam Vital Signs: Temp Pulse Resp BP Pulse Ox 98.5 F 82 18 114/57 L 93 09/05/17 12:54 09/05/17 12:54 09/05/17 12:54 09/05/17 12:54 09/05/17 12:54 Intake & Output 09/04/17 09/05/17 09/06/17 06:59 06:59 06:59 Intake Total 1263 2992 592 Output Total 0 Balance 1263 2992 592 Weight 118.4 kg 118.7 kg Results Laboratory Results: 09/05/17 05:15 09/05/17 05:15 09/05/17 09/05/17 05:15 05:15 WBC 10.1 RBC 2.86 L Hgb 8.8 L Hct 25.7 L MCV 90 MCH 30.9 MCHC 34.3 RDW 15.9 H Plt Count 517 H Seg Neutrophils % Not Reportable Lymphocytes % Not Reportable Monocytes % Not Reportable Eosinophils % Not Reportable Basophils % Not Reportable Absolute Neutrophils Not Reportable Absolute Lymphocytes Not Reportable Absolute Monocytes Not Reportable Absolute Eosinophils Not Reportable Absolute Basophils Not Reportable Sodium 146.8 H Potassium 3.6 Chloride 107 Carbon Dioxide 33 H Anion Gap 7 BUN 5 L Creatinine 0.80 Est GFR ( Amer) > 60 Est GFR (Non-Af Amer) > 60 Glucose 96 Calcium 8.6 Phosphorus 4.1 Albumin 2.4 L 08/30/17 06:56 NT-Pro-B Natriuret Pep 60 Impressions: Chest/Abdomen CTA 08/29/17 09:15 IMPRESSION: No CT angio evidence of acute pulmonary emboli or thoracic aortic dissection Since the CT exam 08/19/2017, patient has developed a trace left pleural effusion , bibasilar atelectasis, and retroperitoneal stranding around the pancreatic tail which could indicate pancreatitis Chest X-Ray 08/29/17 11:03 IMPRESSION: No pneumothorax post left jugular line placement, with line tip in the superior vena cava. Stable bandlike atelectasis left lung base KUB X-Ray 09/03/17 00:00 IMPRESSION: Nonobstructive bowel gas pattern. Left basilar consolidation atelectasis versus pneumonia Endoscopically placed clip in the cecum. This clip has the appearance of a vascular occlusion clip which is not MR compatible. Prior performing any MRI in this patient, KUB should be obtained to demonstrate that this has passed from the bowel lumen Prior CT angio chest 08/29/2017 demonstrated inflammation in the retroperitoneum along the tail of the pancreas. Question pancreatitis. Abdomen Ultrasound 09/03/17 11:50 IMPRESSION: Small amount nonspecific free fluid in lower abdomen.
== END 2017-09-05 14:53 | disposition home or self-care (01) | DRG 377 ==
LOC: ER 08:20 → EH 16:53 → ICU 23:45 → 3W 09-02 12:56
PROVIDERS: ADMIT Internal Medicine; ATTEND Internal Medicine
PROC: 05HN33Z Insertion of Infusion Device into Left Internal Jugular Vein, Percutaneous Approach (ICD-10-PCS; principal; 2017-08-29)
PROC: 30233N1 Transfusion of Nonautologous Red Blood Cells into Peripheral Vein, Percutaneous Approach (ICD-10-PCS; 2017-08-29)
PROC: 3E0G8GC Introduction of Other Therapeutic Substance into Upper GI, Via Natural or Artificial Opening Endoscopic (ICD-10-PCS; 2017-08-30)
PROC: 0W3P8ZZ Control Bleeding in Gastrointestinal Tract, Via Natural or Artificial Opening Endoscopic (ICD-10-PCS; 2017-08-30)
PROC: 0DC68ZZ Extirpation of Matter from Stomach, Via Natural or Artificial Opening Endoscopic (ICD-10-PCS; 2017-08-30)
PROC: 30233K1 Transfusion of Nonautologous Frozen Plasma into Peripheral Vein, Percutaneous Approach (ICD-10-PCS; 2017-08-30)
PROC: 30233N1 Transfusion of Nonautologous Red Blood Cells into Peripheral Vein, Percutaneous Approach (ICD-10-PCS; 2017-08-30)
PROC: 30233N1 Transfusion of Nonautologous Red Blood Cells into Peripheral Vein, Percutaneous Approach (ICD-10-PCS; 2017-09-04)
DX: K92.2 Gastrointestinal hemorrhage, unspecified (principal); K85.90 Acute pancreatitis without necrosis or infection, unspecified; A04.72 Enterocolitis due to Clostridium difficile, not specified as recurrent; D64.9 Anemia, unspecified; E03.9 Hypothyroidism, unspecified; J43.2 Centrilobular emphysema; I95.9 Hypotension, unspecified; D72.829 Elevated white blood cell count, unspecified; D35.2 Benign neoplasm of pituitary gland; G47.33 Obstructive sleep apnea (adult) (pediatric); F17.210 Nicotine dependence, cigarettes, uncomplicated
CPT/HCPCS: 36415; 36430; 43235; 43236; 43255; 71045; 71275; 731; 74018; 76705; 80048; 80053; 80069; 81001; 82272; 82803; 83605; 83690; 83735; 83880; 84100; 84439; 84443; 85025; 85027; 85610; 86850; 86900; 86901; 86920; 87040; 87086; 87493; 93005; 93010; 94002; 94150; 94640; 94660; 96360; 96361; 99291; 99292; C1751; J0171; J0330; J1170; J1200; J1610; J1940; J2250; J2270; J2310; J2354; J2405; J2704; J2765; J3010; J3370; J3480; J3490; J7030; J7040; J7050; J7620; P9016; P9017; S0164

== ENCOUNTER → 2017-10-02 | Outpatient (CLI) | payer SELFPAY ==
[2017-10-02 12:18] LABS: ABSOLUTE BASOPHILS # (AUTO) 0.1 10^3/uL (0.0-0.2); ABSOLUTE EOSINOPHILS # (AUTO) 0.8 10^3/uL (0.0-0.6); ABSOLUTE LYMPHOCYTES (AUTO) 1.5 10^3/uL (0.5-4.7); ABSOLUTE MONOCYTES (AUTO) 0.8 10^3/uL (0.1-1.4); ABSOLUTE NEUT (AUTO) 4.2 10^3/uL (1.7-8.2); BASOPHILS % (AUTO) 1.4 % (0-2); EOSINOPHILS % (AUTO) 10.4 % (0-6); HEMATOCRIT 38.1 % (37.9-51.0); HEMOGLOBIN 12.8 g/dL (13.5-17.0); LYMPHOCYTES % (AUTO) 20.5 % (13-45); MEAN CORPUSCULAR HEMOGLOBIN 29.7 pg (27.0-33.4); MEAN CORPUSCULAR HGB CONC 33.6 g/dL (32.0-36.0); MEAN CORPUSCULAR VOLUME 88 fl (80-97); MONOCYTES % (AUTO) 11.1 % (3-13); PLATELET COUNT 393 10^3/uL (150-450); RED BLOOD COUNT 4.32 10^6/uL (4.35-5.55); RED CELL DISTRIBUTION WIDTH 16.5 % (11.5-14.0); SEGMENTED NEUTROPHILS % (AUTO) 56.6 % (42-78); TOTAL CELLS COUNTED % (AUTO) 100 %; WHITE BLOOD COUNT 7.4 10^3/uL (4.0-10.5)
[2017-10-02 12:41] LABS: ALANINE AMINOTRANSFERASE 43 U/L (21-72); ALBUMIN 4.3 g/dL (3.5-5.0); ALKALINE PHOSPHATASE 75 U/L (38-126); ANION GAP 16 (5-19); ASPARTATE AMINO TRANSFERASE 38 U/L (17-59); BILIRUBIN,DIRECT 0.3 mg/dL (0.0-0.4); BILIRUBIN,TOTAL 0.4 mg/dL (0.2-1.3); BLOOD UREA NITROGEN 16 mg/dL (7-20); CARBON DIOXIDE 21 mmol/L (22-30); CHLORIDE 110 mmol/L (98-107); GLUCOSE 95 mg/dL (75-110); POTASSIUM 4.4 mmol/L (3.6-5.0); SODIUM 146.5 mmol/L (137-145); TOTAL PROTEIN 7.3 g/dL (6.3-8.2)
== END ==
LOC: LAB 11:59
PROVIDERS: ATTEND Physician Assistant Surgical
DX: K25.5 Chronic or unspecified gastric ulcer with perforation (principal); R10.9 Unspecified abdominal pain
CPT/HCPCS: 36415; 80053; 85025

== ENCOUNTER 2017-10-09 08:39 | Day surgery (SDC) | payer SELFPAY ==
[2017-10-09 09:34] LABS: HEMATOCRIT 39.7 % (37.9-51.0); HEMOGLOBIN 13.1 g/dL (13.5-17.0); MEAN CORPUSCULAR HEMOGLOBIN 29.1 pg (27.0-33.4); MEAN CORPUSCULAR HGB CONC 33.1 g/dL (32.0-36.0); MEAN CORPUSCULAR VOLUME 88 fl (80-97); PLATELET COUNT 416 10^3/uL (150-450); RED BLOOD COUNT 4.51 10^6/uL (4.35-5.55); RED CELL DISTRIBUTION WIDTH 16.2 % (11.5-14.0); WHITE BLOOD COUNT 6.4 10^3/uL (4.0-10.5)
[2017-10-09] MEDS ORDERED: LIDOCAINE 2% INJ-PF (20 MG/ML) 10 ML AMPUL ONE (09:43)
[2017-10-09] MEDS ORDERED: ONDANSETRON HCL INJ/PF 4 MG/2 ML SDV ONE (09:44)
[2017-10-09] MEDS ORDERED: FENTANYL CITRATE INJ/PF 100 MCG/2 ML AMPUL ONE (09:44)
[2017-10-09] MEDS ORDERED: MIDAZOLAM 2 MG/2 ML INJ ONE (09:44)
[2017-10-09] MEDS ORDERED: PROPOFOL INJ 200 MG/20 ML VIAL IV ONE (09:44)
[2017-10-09] MEDS ORDERED: MEPERIDINE HCL/PF INJ 25 MG/1 ML DISP.SYRIN IV PRN (09:46)
[2017-10-09] MEDS ORDERED: MORPHINE SULFATE 10 MG/ML INJ IV PRN (09:46)
[2017-10-09] MEDS ORDERED: DIPHENHYDRAMINE HCL 50 MG/ML VIAL IV PRN (09:46)
[2017-10-09] MEDS ORDERED: ONDANSETRON HCL INJ/PF 4 MG/2 ML SDV IV PRN (09:46)
[2017-10-09] MEDS ORDERED: PROMETHAZINE HCL INJ 25 MG/1 ML VIAL IV PRN ×2 (09:46)
[2017-10-09] MEDS ORDERED: FENTANYL CITRATE INJ/PF 100 MCG/2 ML AMPUL IV PRN ×3 (09:46)
--- NOTE | 2017-10-09 11:17 | Discharge Summary ---
Discharge Summary (SDC) - Discharge Final Diagnosis: Severe gastritis, gastric ulcer, duodenitis, small/sliding hiatal hernia, reflux esophagitis Date of Surgery: 10/09/17 Discharge Date: 10/09/17 Condition: Stable Forms: ASU Anesthesia D/C Instruction, Discharge POC-Surgical Service Referrals: SABIHA FAROOQ MD [ACTIVE STAFF] - 10/17/17 8:00 am Discharge Diet: As Tolerated Respiratory Treatments at Home: Deep Breathing/Coughing, Incentive Spirometer Discharge Activity: Activity As Tolerated Home Care Assistance: None Needed Report the Following to Your Physician Immediately: Shortness of Breath, Increase in Pain, Fever over 101 Degrees, Unusual Bleeding, Swelling, IV Site Infection Signs
--- NOTE | 2017-10-09 11:29 | Operative Report ---
Nonrecallable Operative Report DATE OF SURGERY: 10/09/17 PREOPERATIVE DIAGNOSIS: 1. Abdominal pain. 2. History of perforated gastric ulcer POSTOPERATIVE DIAGNOSIS: 1. Prepyloric gastric ulcer (shrinking). 2. Severe gastritis. 3. Duodenitis. 4. Sliding hiatal hernia. 5. Reflux esophagitis OPERATION: EGD with biopsy SURGEON: SABIHA FAROOQ ANESTHESIA: LMAC TISSUE REMOVED OR ALTERED: 1. Antrum. 2. Duodenum. 3. Margin of ulcer. 4. Center of ulcer. 5. Gastric body. 6. Distal esophagus. 7. Esophageal ulcer at 25 cm COMPLICATIONS: None apparent ESTIMATED BLOOD LOSS: Minimal PROCEDURE: Drains/implants: None. Procedure in detail: After informed consent was obtained, the patient was laid into the left lateral decubitus position. The endoscope was passed down the oropharynx, down the esophagus, and into the stomach. The stomach was insufflated with air. Immediately, there was noted to be severe gastritis throughout the stomach. The scope was pushed through the stomach to the antrum. The prepyloric ulcer was easily identified. It was smaller than on previous exam, but was still present. The scope was pushed through the pylorus , and into the duodenum. The first and second portions of the duodenum were examined. The second portion was normal, however the first portion had evidence of duodenitis. Biopsy was taken in the duodenal bulb. The scope was pulled into the antrum. Antral biopsy was taken. Biopsy was also taken at the ulcer margin and central portion. The scope was withdrawn into the gastric body. A biopsy was taken in the gastric body, at the area of maximal gastritis. A retroflexion maneuver was performed, noting a sliding-type hiatal hernia. The scope was withdrawn into the distal esophagus. There is evidence of reflux esophagitis. Biopsy was taken in the distal esophagus. The scope was then withdrawn up the remainder of the esophagus. At approximately 25 cm there was found to be another esophageal ulceration. Biopsy was taken at the ulceration. The scope was then removed from the patient, and the procedure was concluded. All sponge, instrument, and needle counts were correct 2. Addition: Stable.
[2017-10-09 11:35] VITALS: BP 121/72
== END 2017-10-09 11:15 | disposition home or self-care (01) ==
LOC: OROUT 08:39
PROVIDERS: ATTEND Surgery
DX: K25.5 Chronic or unspecified gastric ulcer with perforation (principal); K29.80 Duodenitis without bleeding; K29.50 Unspecified chronic gastritis without bleeding; K21.0 Gastro-esophageal reflux disease with esophagitis; K44.9 Diaphragmatic hernia without obstruction or gangrene; G47.30 Sleep apnea, unspecified; J44.9 Chronic obstructive pulmonary disease, unspecified; E03.9 Hypothyroidism, unspecified; F17.210 Nicotine dependence, cigarettes, uncomplicated
CPT/HCPCS: 43239; 36415; 85027; 88342 ×2; 88305 ×2; 88312 ×2; J2250; J3010; J2405; J2704; J3490; 731

== ENCOUNTER 2018-12-01 08:25 | Inpatient (IN) | payer SELFPAY ==
[2018-12-01] MEDS ORDERED: ASPIRIN 81 MG TABLET, CHEWABLE PO ONE (08:47)
[2018-12-01] MEDS ORDERED: METHYLPREDNISOLONE INJ 125 MG/2 ML SDV IV ONE (08:50)
[2018-12-01] MEDS ORDERED: IPRATROPIUM/ALBUTEROL 0.5-2.5 MG/3 ML AMPUL NEB ONE (08:50)
[2018-12-01] MEDS ORDERED: AZITHROMYCIN INJ 500 MG VIAL IV ONE (09:24)
[2018-12-01] MEDS ORDERED: AMPICILLIN SOD/SULBACTAM 3 GM VIAL IV ONE (09:24)
[2018-12-01 09:28] LABS: ABSOLUTE EOSINOPHILS # (AUTO) 0.1 10^3/uL (0.0-0.6); ABSOLUTE LYMPHOCYTES (AUTO) 0.9 10^3/uL (0.5-4.7); ABSOLUTE MONOCYTES (AUTO) 1.1 10^3/uL (0.1-1.4); ABSOLUTE NEUT (AUTO) 9.4 10^3/uL (1.7-8.2); BASOPHILS % (AUTO) 0.4 % (0-2); HEMATOCRIT 49.5 % (37.9-51.0); LYMPHOCYTES % (AUTO) 7.7 % (13-45); MEAN CORPUSCULAR HEMOGLOBIN 32.9 pg (27.0-33.4); MEAN CORPUSCULAR HGB CONC 32.3 g/dL (32.0-36.0); MEAN CORPUSCULAR VOLUME 102 fl (80-97); MONOCYTES % (AUTO) 9.2 % (3-13); RED BLOOD COUNT 4.86 10^6/uL (4.35-5.55); SEGMENTED NEUTROPHILS % (AUTO) 81.7 % (42-78); TOTAL CELLS COUNTED % (AUTO) 100 %; WHITE BLOOD COUNT 11.5 10^3/uL (4.0-10.5)
--- NOTE | 2018-12-01 09:34 | RADIOLOGY REPORT (SQ) ---
EXAM DESCRIPTION: CHEST SINGLE VIEW COMPLETED DATE/TIME: 12/01/2018 9:16 am REASON FOR STUDY: cough COMPARISON: 2017. NUMBER OF VIEWS: One view. TECHNIQUE: Single frontal radiographic view of the chest acquired. LIMITATIONS: None. FINDINGS: LUNGS AND PLEURA: Small left effusion. Patchy left upper lobe and left lower lobe airspac e disease and volume loss. No pneumothorax. Right lung clear. MEDIASTINUM AND HILAR STRUCTURES: No masses. Contour normal. HEART AND VASCULAR STRUCTURES: Cardiomegaly. BONES: No acute findings. HARDWARE: None in the chest. OTHER: No other significant finding. IMPRESSION: Left pneumonia and parapneumonic effusion. TECHNICAL DOCUMENTATION: JOB ID: [id number] [employer]- All Rights Reserved Reading location - IP/workstation name: [email or web address]
[2018-12-01 09:43] LABS: PLATELET COUNT 300 10^3/uL (150-450)
--- NOTE | 2018-12-01 09:46 | ER Document Report ---
ED General - General Chief Complaint: Chest Pain Stated Complaint: DIFFICULTY BREATHING Time Seen by Provider: 12/01/18 08:38 Mode of Arrival: Ambulatory Information source: Patient TRAVEL OUTSIDE OF THE [place] IN LAST 30 DAYS: No - HPI Patient complains to provider of: Dyspnea Onset: Last week Onset/Duration: Gradual Quality of pain: No pain Severity: Moderate Context: 52 year old male with h/o KENDRICK, COPD, current everyday smoker, thyroid disease presents with with complaints of increasing shortness of breath and respiratory illness for about 1 week per . His mentions he was confused at home today trying to wear his own CPAP but exhibiting some degree of confusion with this. Also notes some lower extremity edema noted over the last several days. Associated symptoms: None Exacerbated by: Denies Similar symptoms previously: Yes - Related Data Allergies/Adverse Reactions: No Known Allergies Allergy (Verified 12/01/18 08:26) Past Medical History - General Information source: Patient - Social History Smoking Status: Current Every Day Smoker Frequency of alcohol use: None Drug Abuse: None Lives with: Family Family History: Hypertension Patient has suicidal ideation: No Patient has homicidal ideation: No - Past Medical History Cardiac Medical History: Reports: Hx Hypertension Denies: Hx Coronary Artery Disease, Hx Heart Attack Pulmonary Medical History: Reports: Hx COPD, Hx Pneumonia Denies: Hx Asthma, Hx Bronchitis Neurological Medical History: Denies: Hx Cerebrovascular Accident, Hx Seizures Endocrine Medical History: Reports: Hx Hypothyroidism Renal/ Medical History: Denies: Hx Peritoneal Dialysis Musculoskeletal Medical History: Denies Hx Arthritis Psychiatric Medical History: Denies: Hx Depression Past Surgical History: Reports: Hx Abdominal Surgery - D/t ruptured ulcer, Hx Or thopedic Surgery - orbital fracture, Other - Repair of perforated gastric ulcer - Immunizations Hx Diphtheria, Pertussis, Tetanus Vaccination: No Review of Systems - Review of Systems Constitutional: No symptoms reported EENT: No symptoms reported Cardiovascular: No symptoms reported Respiratory: Cough, Short of breath. denies: Sputum Gastrointestinal: No symptoms reported Genitourinary: No symptoms reported Male Genitourinary: No symptoms reported Musculoskeletal: No symptoms reported Skin: No symptoms reported Hematologic/Lymphatic: No symptoms reported Neurological/Psychological: No symptoms reported Physical Exam - Vital signs Vitals: Pulse Ox 60 L 12/01/18 08:36 Interpretation: Normal - General General appearance: Appears well, Alert - HEENT Head: Normocephalic, Atraumatic Eyes: Normal Pupils: PERRL - Respiratory Respiratory status: Respiratory distress Chest status: Nontender Breath sounds: Decreased air movement, Rhonchi Chest palpation: Normal - Cardiovascular Rhythm: Regular Heart sounds: Normal auscultation Murmur: No - Abdominal Inspection: Normal Distension: No distension Bowel sounds: Normal Tenderness: Nontender Organomegaly: No organomegaly - Back Back: Nontender - Extremities General upper extremity: Normal inspection, Nontender, Normal color, Normal ROM, Normal temperature General lower extremity: Normal inspection, Nontender, Normal color, Normal ROM, Normal temperature. No: Jose's sign Foot: Edema - Neurological Neuro grossly intact: Yes Cognition: Normal Orientation: AAOx4 [place] Coma Scale Eye Opening: Spontaneous [place] Coma Scale Verbal: Oriented [place] Coma Scale Motor: Obeys Commands [place] Coma Scale Total: 15 Speech: Normal Motor strength normal: LUE, RUE, LLE, RLE Sensory: Normal - Psychological Associated symptoms: Normal affect, Normal mood - Skin Skin Temperature: Warm Skin Moisture: Dry Skin Color: Normal Course - Re-evaluation Re-evalutation: 12/01/18 14:34 MDM I have discussed with Dr. Pierre and he has graciously agreed to see and evaluate for admission. - Vital Signs Vital signs: Temp Pulse Resp BP Pulse Ox 98.3 F 24 H 163/101 H 94 12/01/18 15:03 12/01/18 15:01 12/01/18 14:01 12/01/18 15:01 - Laboratory Result Diagrams: 12/01/18 09:04 12/01/18 09:57 Laboratory results interpreted by me: 12/01/18 12/01/18 12/01/18 09:04 09:57 10:10 WBC 11.5 H MCV 102 H RDW 16.0 H Lymph % (Auto) 7.7 L Absolute Neuts (auto) 9.4 H Seg Neutrophils % 81.7 H Carbonic Acid 3.14 H ABG pH 7.14 L* ABG pCO2 104.4 H* ABG pO2 73.0 L ABG HCO3 35.0 H ABG Total CO2 38.2 H ABG O2 Saturation 88.5 L VBG pH VBG pCO2 Carbon Dioxide 34 H BUN 21 H 12/01/18 13:52 WBC MCV RDW Lymph % (Auto) Absolute Neuts (auto) Seg Neutrophils % Carbonic Acid ABG pH ABG pCO2 ABG pO2 ABG HCO3 ABG Total CO2 ABG O2 Saturation VBG pH 7.15 L* VBG pCO2 92.7 H* Carbon Dioxide BUN - Diagnostic Test Radiology reviewed: Image reviewed, Reports reviewed Critical Care Note - Critical Care Note Total time excluding time spent on procedures (mins): 30 Discharge - Discharge Clinical Impression: KENDRICK (obstructive sleep apnea), Acute and chronic respiratory failure with hypercapnia Pneumonia Qualifiers: Pneumonia type: due to unspecified organism Laterality: left Lung location: upper lobe of lung Qualified Code(s): J18.1 - Lobar pneumonia, unspecified organism Respiratory failure with hypercapnia Qualifiers: Chronicity: acute Qualified Code(s): J96.02 - Acute respiratory failure with hypercapnia Condition: Fair Disposition: ADMITTED INPATIENT
--- NOTE | 2018-12-01 10:21 | EKG REPORT ---
SEVERITY:- ABNORMAL ECG - SINUS TACHYCARDIA ATRIAL PREMATURE COMPLEX PROBABLE LEFT ATRIAL ABNORMALITY RIGHT BUNDLE BRANCH BLOCK ST DEPRESSION, CONSIDER ISCHEMIA, ANT-LAT LDS : Confirmed by: Francine Lynch MD 01-Dec-2018 10:21:03
[2018-12-01 10:25] LABS: ALBUMIN 4.1 g/dL (3.5-5.0); ALKALINE PHOSPHATASE 61 U/L (38-126); ANION GAP 6 (5-19); ASPARTATE AMINO TRANSFERASE 30 U/L (17-59); BILIRUBIN,DIRECT 0.2 mg/dL (0.0-0.4); BILIRUBIN,TOTAL 0.3 mg/dL (0.2-1.3); BLOOD UREA NITROGEN 21 mg/dL (7-20); CALCIUM 9.4 mg/dL (8.4-10.2); CARBON DIOXIDE 34 mmol/L (22-30); CHLORIDE 102 mmol/L (98-107); CREATINE KINASE 74 U/L (55-170); GLUCOSE 110 mg/dL (75-110); POTASSIUM 4.4 mmol/L (3.6-5.0); TOTAL PROTEIN 6.8 g/dL (6.3-8.2)
[2018-12-01 10:36] LABS: CREATINE KINASE MB 1.8 ng/mL (<4.55); TROPONIN I 0.031 ng/mL
[2018-12-01 10:47] LABS: ARTERIAL BLOOD BASE EXCESS 1.7 mmol/L; ARTERIAL BLOOD H2CO3 3.14 mmol/L (1.05-1.35); ARTERIAL BLOOD O2 SATURATION 88.5 % (94-98); ARTERIAL BLOOD TOTAL CO2 38.2 mmol/L (23-27)
[2018-12-01 10:50] LABS: ARTERIAL BLOOD PH 7.14 (7.35-7.45)
[2018-12-01 10:51] LABS: ARTERIAL BLOOD FIO2 100% NRB; ARTERIAL BLOOD PCO2 104.4 mmHg (35-45)
[2018-12-01 14:12] LABS: VENOUS BLOOD BASE EXCESS -0.7 mmol/L; VENOUS BLOOD HCO3 31.6 mmol/L (20-32)
[2018-12-01 14:13] LABS: VENOUS BLOOD PCO2 92.7 mmHg (35-63); VENOUS BLOOD PH 7.15 (7.30-7.42)
--- NOTE | 2018-12-01 15:27 | PDOC H&P ---
History of Present Illness Admission Date/PCP: KIRBY YANG PA-C Patient complains of: SOB, confusion History of Present Illness: JOSEPH CAREY is a 52 year old male with a past medical history of COPD not on home O2, KENDRICK on CPAP at home, hypothyroidism, history of GI bleed from a perforated gastric ulcer, history of pituitary tumor on cabergoline, chronic cigarette smoking, obesity and hypertension who was brought in due to increasing shortness of breath and confusion. says that patient has been off his CPAP machine for the past 3 weeks due to recently removed tooth abscess causing pain when he uses the CPAP at home. She says that he has been complaining of slowly progressive shortness of breath for almost a week now. She says that he has chronic cough but it has not been significantly more productive than his baseline cough. He says that yesterday patient was noted to be weaker and lethargic. This morning, he was more confused and did not know what day it was. In the ER, patient was noted to have severely elevated PCO2 of 104. Chest x-ray shows left-sided pneumonia. He was placed on BiPAP. Upon encounter, patient appears lethargic but is arousable. He is oriented to person and place and is able to tell me some of his history. There was initial report that he complained of chest pain but when this was clarified with patient and , patient says that he did not have chest pain but more of shortness of breath. His does say that he has been having increasing pedal edema in the past 2 weeks. Past Medical History Cardiac Medical History: Reports: Hypertension Denies: Coronary Artery Disease, Myocardial Infarction Pulmonary Medical History: Reports: Chronic Obstructive Pulmonary Disease (COPD), Pneumonia Denies: Asthma, Bronchitis Neurological Medical History: Denies: Seizures Endocrine Medical History: Reports: Hypothyroidism Musculoskeltal Medical History: Denies: Arthritis Psychiatric Medical History: Denies: Depression Hematology: Denies: Anemia Past Surgical History Past Surgical History: Reports: Orthopedic Surgery - orbital fracture, Other - Repair of perforated gastric ulcer Social History Lives with: Family Smoking Status: Current Every Day Smoker Frequency of Alcohol Use: None Hx Recreational Drug Use: No Drugs: None Hx Prescription Drug Abuse: No Family History Family History: Hypertension Parental Family History Reviewed: Yes - No premature CAD Children Family History Reviewed: No Sibling(s) Family History Reviewed.: No Medication/Allergy Home Medications: Cabergoline [Cabergoline 0.5 mg Tablet] 0.25 mg PO TUFR@1000 08/19/17 Levothyroxine Sodium [Synthroid 0.112 mg Tablet] 0.224 mg PO Q6AM 08/19/17 Albuterol Sulfate [Albuterol Sulfate Hfa] 2 puff IH Q6HP PRN 12/01/18 Ipratropium/Albuterol Sulfate [Duoneb 3 ml Ampul] 3 ml NEB RTQ4HP PRN 12/01/18 Allergies/Adverse Reactions: No Known Allergies Allergy (Verified 12/01/18 08:26) Review of Systems All systems: reviewed and no additional remarkable complaints except as stated - As mentioned in HPI Physical Exam Vital Signs: Temp Pulse Resp BP Pulse Ox 98.3 F 24 H 163/101 H 94 12/01/18 15:03 12/01/18 15:01 12/01/18 14:01 12/01/18 15:01 Intake & Output 11/30/18 12/01/18 12/02/18 06:59 06:59 06:59 Weight 259 lb 14.8 oz General appearance: PRESENT: no acute distress, obese Head exam: PRESENT: atraumatic, normocephalic Eye exam: PRESENT: conjunctiva pink, EOMI, PERRLA. ABSENT: scleral icterus Ear exam: PRESENT: normal external ear exam Mouth exam: PRESENT: moist, tongue midline Neck exam: ABSENT: carotid bruit, JVD, lymphadenopathy, thyromegaly Respiratory exam: PRESENT: rales, rhonchi. ABSENT: wheezes Cardiovascular exam: PRESENT: RRR. ABSENT: diastolic murmur, rubs, systolic murmur Pulses: PRESENT: normal dorsalis pedis pul GI/Abdominal exam: PRESENT: normal bowel sounds, soft. ABSENT: distended, guarding, mass, organolmegaly, rebound, tenderness Rectal exam: PRESENT: deferred Neurological exam: PRESENT: alert, awake, oriented to person, oriented to place, CN II-XII grossly intact. ABSENT: motor sensory deficit Results Laboratory Results: 12/01/18 09:04 12/01/18 09:57 12/01/18 12/01/18 12/01/18 09:04 09:04 09:04 WBC 11.5 H RBC 4.86 Hgb 16.0 Hct 49.5 MCV 102 H MCH 32.9 MCHC 32.3 RDW 16.0 H Plt Count 300 Seg Neutrophils % 81.7 H Carbonic Acid HCO3/H2CO3 Ratio ABG pH ABG pCO2 ABG pO2 ABG HCO3 ABG O2 Saturation ABG Base Excess VBG pH VBG pCO2 VBG HCO3 VBG Base Excess FiO2 Sodium Cancelled Potassium Cancelled Chloride Cancelled Carbon Dioxide Cancelled Anion Gap Cancelled BUN Cancelled Creatinine Cancelled Est GFR ( Amer) Cancelled Est GFR (Non-Af Amer) Cancelled Glucose Cancelled Lactic Acid 0.8 Calcium Cancelled Total Bilirubin Cancelled AST Cancelled Alkaline Phosphatase Cancelled Total Protein Cancelled Albumin Cancelled 12/01/18 12/01/18 12/01/18 09:57 10:10 13:52 WBC RBC Hgb Hct MCV MCH MCHC RDW Plt Count Seg Neutrophils % Carbonic Acid 3.14 H HCO3/H2CO3 Ratio 11:1 ABG pH 7.14 L* ABG pCO2 104.4 H* ABG pO2 73.0 L ABG HCO3 35.0 H ABG O2 Saturation 88.5 L ABG Base Excess 1.7 VBG pH 7.15 L* VBG pCO2 92.7 H* VBG HCO3 31.6 VBG Base Excess -0.7 FiO2 100% NRB Sodium 141.5 Potassium 4.4 Chloride 102 Carbon Dioxide 34 H Anion Gap 6 BUN 21 H Creatinine 0.80 Est GFR ( Amer) > 60 Est GFR (Non-Af Amer) Glucose 110 Lactic Acid Calcium 9.4 Total Bilirubin 0.3 AST 30 Alkaline Phosphatase 61 Total Protein 6.8 Albumin 4.1 12/01/18 12/01/18 12/01/18 09:04 09:04 09:57 Creatine Kinase Cancelled 74 CK-MB (CK-2) Troponin I Cancelled NT-Pro-B Natriuret Pep Cancelled 12/01/18 09:57 Creatine Kinase CK-MB (CK-2) 1.80 Troponin I 0.031 NT-Pro-B Natriuret Pep Impressions: Chest X-Ray 12/01/18 08:49 IMPRESSION: Left pneumonia and parapneumonic effusion. Assessment and Plan - Diagnosis (1) Acute on chronic respiratory failure with hypoxia and hypercapnia Is this a current diagnosis for this admission?: Yes Plan: Multifactorial from left-sided pneumonia and COPD exacerbation in a patient with long-standing COPD and KENDRICK and noncompliance to CPAP at home. Saturating at 94% on BiPAP. Will increase BiPAP settings. Repeat ABG. Close monitoring of neurologic symptoms as patient may be a potential candidate for intubation if his mentation deteriorates along with persistently elevated PCO2. (2) COPD exacerbation Is this a current diagnosis for this admission?: Yes Plan: Start IV steroids and scheduled breathing treatments. (3) Pneumonia Qualifiers: Pneumonia type: due to unspecified organism Laterality: left Lung location: upper lobe of lung Qualified Code(s): J18.1 - Lobar pneumonia, unspecified organism Is this a current diagnosis for this admission?: Yes Plan: We will start levofloxacin. Will order for sputum culture. (4) Hypothyroidism Is this a current diagnosis for this admission?: Yes Plan: We will recheck thyroid panel. (5) Pituitary tumor Is this a current diagnosis for this admission?: Yes Plan: On cabergoline at home. - Time Time Spent with patient: 25-34 minutes
--- NOTE | 2018-12-01 15:31 | ADVANCED CARE ---
- Diagnosis (1) Hypothyroidism Diagnosis Current: Yes (2) Acute on chronic respiratory failure with hypoxia and hypercapnia Diagnosis Current: Yes (3) COPD exacerbation Diagnosis Current: Yes (4) KENDRICK (obstructive sleep apnea) Diagnosis Current: Yes (5) Pneumonia Diagnosis Current: Yes (6) Pituitary tumor Diagnosis Current: Yes Resuscitation Status: Full Code Discussion: Discussed with patient and at bedside. He expresses he is a full code and prefers to receive chest compressions, defibrillation or mechanical ventilation if the need arises. He says he was intubated before and was on the ventilator for 22 days. He says that his , Roman Viramontes is his surrogate medical decision maker.
[2018-12-01 15:44] LABS: APPEARANCE,URINE CLEAR; BILIRUBIN,URINE NEGATIVE (NEGATIVE); COLOR,URINE YELLOW; GLUCOSE, URINE NEGATIVE (NEGATIVE); KETONES,URINE NEGATIVE (NEGATIVE); LEUKOCYTE ESTERASE,URINE NEGATIVE (NEGATIVE); NITRITE,URINE NEGATIVE (NEGATIVE); PROTEIN,URINE >=500 mg/dL (NEGATIVE)
[2018-12-01 15:52] LABS: URINE SPECIFIC GRAVITY 1.033
[2018-12-01 15:59] LABS: FREE T3 2.51 pg/mL (2.77-5.27); FREE T4 (FREE THYROXINE) 0.63 ng/dL (0.78-2.19)
[2018-12-01] MEDS: HYDRALAZINE HCL INJ/PF 20 MG/1 ML SDV IV PRN ×2 (16:55→21:00)
[2018-12-01] MEDS: IPRATROPIUM/ALBUTEROL 0.5-2.5 MG/3 ML AMPUL NEB SCH ×2 (16:55→20:54)
[2018-12-01] MEDS ORDERED: DEXTROSE 40% GEL 15 GM TUBE PO PRN ×2 (18:03)
[2018-12-01] MEDS ORDERED: GLUCAGON,HUMAN RECOMB 1 MG INJ IM PRN (18:03)
[2018-12-01] MEDS ORDERED: DEXTROSE 50%-WATER 25 GM/50 ML DISP.SYRIN IV PRN ×2 (18:03)
[2018-12-01 18:55] LABS: ARTERIAL BLOOD BASE EXCESS 3.4 mmol/L; ARTERIAL BLOOD FIO2 40%; ARTERIAL BLOOD HCO3 32.8 mmol/L (20-24); ARTERIAL BLOOD O2 SATURATION 93.3 % (94-98); ARTERIAL BLOOD PH 7.29 (7.35-7.45); ARTERIAL BLOOD PO2 76.3 mmHg (80-100); ARTERIAL BLOOD TOTAL CO2 34.9 mmol/L (23-27)
[2018-12-01 18:57] LABS: ARTERIAL BLOOD PCO2 69.9 mmHg (35-45)
[2018-12-01] MEDS ORDERED: FUROSEMIDE INJ/PF 20 MG/2 ML SDV IV ONE (19:01)
--- NOTE | 2018-12-01 19:10 | PDOC PROGRESS REPORT ---
Subjective Progress Note for:: 12/01/18 Subjective:: Patient complains of: SOB, confusion History of Present Illness: JOSEPH CAREY is a 52 year old male with a past medical history of COPD not on home O2, KENDRICK on CPAP at home, hypothyroidism, history of GI bleed from a perforated gastric ulcer, history of pituitary tumor on cabergoline, chronic cigarette smoking, obesity and hypertension who was brought in due to increasing shortness of breath and confusion. says that patient has been off his CPAP machine for the past 3 weeks due to recently removed tooth abscess causing pain when he uses the CPAP at home. She says that he has been complaining of slowly progressive shortness of breath for almost a week now. She says that he has chronic cough but it has not been significantly more productive than his baseline cough. He says that yesterday patient was noted to be weaker and lethargic. This morning, he was more confused and did not know what day it was. In the ER, patient was noted to have severely elevated PCO2 of 104. Chest x-ray shows left-sided pneumonia. He was placed on BiPAP. Upon encounter, patient appears lethargic but is arousable. He is oriented to person and place and is able to tell me some of his history. There was initial report that he complained of chest pain but when this was clarified with patient and , patient says that he did not have chest pain but more of shortness of breath. His does say that he has been having increasing pedal edema in the past 2 weeks. 12/01 I was asked to evaluate the patient by Dr. Pierre. The patient has been drowsy. His inital ABG showed a significant acute on chronic respiratory acidosis. The patient was admitted and intubated easton 3 weeks about 1 year ago. Reason For Visit: ACUTE RESPIRATORY FAILURE Physical Exam Vital Signs: Temp Pulse Resp BP Pulse Ox 98.3 F 19 122/69 100 12/01/18 15:03 12/01/18 18:00 12/01/18 17:16 12/01/18 18:00 Intake & Output 11/30/18 12/01/18 12/02/18 06:59 06:59 06:59 Output Total 500 Balance -500 Weight 117.9 kg General appearance: PRESENT: cooperative, mild distress Eye exam: PRESENT: conjunctiva pink Ear exam: PRESENT: normal external ear exam Mouth exam: PRESENT: moist Neck exam: ABSENT: carotid bruit, JVD, lymphadenopathy, meningismus Respiratory exam: PRESENT: prolonged expiratory phas, rhonchi, symmetrical. ABSENT: accessory muscle use Cardiovascular exam: PRESENT: RRR, +S1, +S2 Pulses: PRESENT: normal dorsalis pedis pul Vascular exam: PRESENT: normal capillary refill GI/Abdominal exam: PRESENT: normal bowel sounds - The patient is obese with a large abdomen. There is a midline scar from his previous surgery. ABSENT: as cites, guarding Rectal exam: ABSENT: deferred Gentrourinary exam: ABSENT: lesions Extremities exam: PRESENT: full ROM Musculoskeletal exam: PRESENT: full ROM Psychiatric exam: PRESENT: normal mood Skin exam: PRESENT: normal color Results Laboratory Results: 12/01/18 09:04 12/01/18 09:57 12/01/18 12/01/18 12/01/18 09:04 09:04 09:04 WBC 11.5 H RBC 4.86 Hgb 16.0 Hct 49.5 MCV 102 H MCH 32.9 MCHC 32.3 RDW 16.0 H Plt Count 300 Seg Neutrophils % 81.7 H Carbonic Acid HCO3/H2CO3 Ratio ABG pH ABG pCO2 ABG pO2 ABG HCO3 ABG O2 Saturation ABG Base Excess VBG pH VBG pCO2 VBG HCO3 VBG Base Excess FiO2 Sodium Cancelled Potassium Cancelled Chloride Cancelled Carbon Dioxide Cancelled Anion Gap Cancelled BUN Cancelled Creatinine Cancelled Est GFR ( Amer) Cancelled Est GFR (Non-Af Amer) Cancelled Glucose Cancelled Lactic Acid 0.8 Calcium Cancelled Total Bilirubin Cancelled AST Cancelled Alkaline Phosphatase Cancelled Total Protein Cancelled Albumin Cancelled TSH Free T4 Free T3 pg/mL Urine Color Urine Appearance Urine pH Ur Specific [place] Urine Protein Urine Glucose (UA) Urine Ketones Urine Blood Urine Nitrite Ur Leukocyte Esterase Urine WBC (Auto) Urine RBC (Auto) 12/01/18 12/01/18 12/01/18 09:04 09:04 09:57 WBC RBC Hgb Hct MCV MCH MCHC RDW Plt Count Seg Neutrophils % Carbonic Acid HCO3/H2CO3 Ratio ABG pH ABG pCO2 ABG pO2 ABG HCO3 ABG O2 Saturation ABG Base Excess VBG pH VBG pCO2 VBG HCO3 VBG Base Excess FiO2 Sodium 141.5 Potassium 4.4 Chloride 102 Carbon Dioxide 34 H Anion Gap 6 BUN 21 H Creatinine 0.80 Est GFR ( Amer) > 60 Est GFR (Non-Af Amer) Glucose 110 Lactic Acid Calcium 9.4 Total Bilirubin 0.3 AST 30 Alkaline Phosphatase 61 Total Protein 6.8 Albumin 4.1 TSH 11.10 H Free T4 0.63 L Free T3 pg/mL 2.51 L Urine Color Urine Appearance Urine pH Ur Specific [place] Urine Protein Urine Glucose (UA) Urine Ketones Urine Blood Urine Nitrite Ur Leukocyte Esterase Urine WBC (Auto) Urine RBC (Auto) 12/01/18 12/01/18 12/01/18 10:10 13:52 15:22 WBC RBC Hgb Hct MCV MCH MCHC RDW Plt Count Seg Neutrophils % Carbonic Acid 3.14 H HCO3/H2CO3 Ratio 11:1 ABG pH 7.14 L* ABG pCO2 104.4 H* ABG pO2 73.0 L ABG HCO3 35.0 H ABG O2 Saturation 88.5 L ABG Base Excess 1.7 VBG pH 7.15 L* VBG pCO2 92.7 H* VBG HCO3 31.6 VBG Base Excess -0.7 FiO2 100% NRB Sodium Potassium Chloride Carbon Dioxide Anion Gap BUN Creatinine Est GFR ( Amer) Est GFR (Non-Af Amer) Glucose Lactic Acid Calcium Total Bilirubin AST Alkaline Phosphatase Total Protein Albumin TSH Free T4 Free T3 pg/mL Urine Color YELLOW Urine Appearance CLEAR Urine pH 6.0 Ur Specific [place] 1.033 Urine Protein >=500 H Urine Glucose (UA) NEGATIVE Urine Ketones NEGATIVE Urine Blood NEGATIVE Urine Nitrite NEGATIVE Ur Leukocyte Esterase NEGATIVE Urine WBC (Auto) 4 Urine RBC (Auto) 2 12/01/18 12/01/18 12/01/18 09:04 09:04 09:57 Creatine Kinase Cancelled 74 CK-MB (CK-2) Troponin I Cancelled NT-Pro-B Natriuret Pep Cancelled 12/01/18 09:57 Creatine Kinase CK-MB (CK-2) 1.80 Troponin I 0.031 NT-Pro-B Natriuret Pep Impressions: Chest X-Ray 12/01/18 08:49 IMPRESSION: Left pneumonia and parapneumonic effusion. Assessment & Plan - Diagnosis (1) Acute and chronic respiratory failure with hypercapnia Is this a current diagnosis for this admission?: Yes Plan: The patient has an ABG consistent with acute on chronic respiratory failure (2) COPD exacerbation Is this a current diagnosis for this admission?: Yes Plan: The patient has a long history of chronic COPD. He is on home 02 and uses a CPAP at HS. He was not able toiuse his CPAP the opast few weeks which likely contributed to this worsening respiratory acidosis. (3) Pneumonia Qualifiers: Pneumonia type: due to unspecified organism Laterality: left Lung loc ation: lower lobe of lung Qualified Code(s): J18.1 - Lobar pneumonia, unspecified organism Is this a current diagnosis for this admission?: Yes Plan: The patient has a large LLL +/- lingular pneumonia. Will request sputm culture. The patient was started empirically on Levaquin - Time Time Spent with patient: 35 or more minutes Medications reviewed and adjusted accordingly: Yes Anticipated discharge: Home Within: within 72 hours
[2018-12-01] MEDS ORDERED: LEVOTHYROXINE SODIUM INJ/PF 0.1 MG SDV IV SCH (19:15)
--- NOTE | 2018-12-01 19:19 | RADIOLOGY REPORT (SQ) ---
EXAM DESCRIPTION: CT HEAD WITHOUT COMPLETED DATE/TIME: 12/01/2018 7:00 pm REASON FOR STUDY: AMS, has a pituitary tumor COMPARISON: None. TECHNIQUE: Axial images acquired through the brain without intravenous contrast. Images reviewed wit h bone, brain and subdural windows. Images stored on PACS. All CT scanners at this facility use dose modulation, iterative reconstruction, and/or weight based d osing when appropriate to reduce radiation dose to as low as reasonably achievable (ALARA). [facility]: Dose Right [facility]: CareDose [facility]: Dose Right [facility]: Teradose 4D [facility]: Smart LaunchSide RADIATION DOSE: CT Rad equipment meets quality standard of care and radiation dose reduction techniq ues were employed. CTDIvol: 53.2 mGy. DLP: 1097 mGy-cm.. LIMITATIONS: None. FINDINGS: VENTRICLES: Normal size and contour. CEREBRUM: No masses. No hemorrhage. No midline shift. Age appropriate white matter. No evidence for a cute infarction. CEREBELLUM: No masses. No hemorrhage. No alteration of density. No evidence for acute infarction. EXTRA-AXIAL SPACES: No fluid collections. ORBITS AND GLOBE: No intra- or extraconal masses. Normal contour of globe without masses. CALVARIUM: No acute fracture. PARANASAL SINUSES: No fluid or mucosal thickening. SOFT TISSUES: No mass or hematoma. OTHER: No other significant finding. IMPRESSION: NO ACUTE INTRACRANIAL FINDINGS. EVIDENCE OF ACUTE STROKE: NO. TECHNICAL DOCUMENTATION: JOB ID: [id number] [id number] Quality ID # [id number]: Final reports with documentation of one or more dose reduction techniques (e.g., Au tomated exposure control, adjustment of the mA and/or kV according to patient size, use of iterative reconstruction technique) 2010 [employer]- All Rights Reserved Reading location - IP/workstation name: Master [employer]
[2018-12-01] MEDS: KETOROLAC TROMETHAMINE INJ/PF 30 MG/1 ML SDV IV PRN (20:28)
[2018-12-01] MEDS: METHYLPREDNISOLONE INJ 40 MG/1 ML SDV IV SCH (22:01)
[2018-12-01] MEDS: HEPARIN SOD (PORCINE) 5,000 UNIT/ML 1 ML VIAL SUBCUT SCH (22:01)
[2018-12-02] MEDS: IPRATROPIUM/ALBUTEROL 0.5-2.5 MG/3 ML AMPUL NEB SCH ×6 (00:02→20:35)
[2018-12-02] MEDS: INSULIN LISPRO 100 UNIT/ML 3 ML VIAL SUBCUT SCH ×5 (01:45→23:14)
[2018-12-02 03:18] LABS: ARTERIAL BLOOD BASE EXCESS 3.2 mmol/L; ARTERIAL BLOOD FIO2 4 L NC; ARTERIAL BLOOD H2CO3 1.93 mmol/L (1.05-1.35); ARTERIAL BLOOD HCO3 31.5 mmol/L (20-24); ARTERIAL BLOOD O2 SATURATION 92.3 % (94-98); ARTERIAL BLOOD PH 7.31 (7.35-7.45); ARTERIAL BLOOD PO2 70.6 mmHg (80-100); ARTERIAL BLOOD TOTAL CO2 33.5 mmol/L (23-27)
[2018-12-02] MEDS ORDERED: LEVOTHYROXINE SODIUM 0.112 MG TABLET PO SCH (06:00)
[2018-12-02] MEDS: KETOROLAC TROMETHAMINE INJ/PF 30 MG/1 ML SDV IV PRN ×2 (08:51→22:53)
--- NOTE | 2018-12-02 09:30 | PDOC PROGRESS REPORT ---
Subjective Progress Note for:: 12/02/18 Subjective:: Patient complains of: SOB, confusion History of Present Illness: JOSEPH CAREY is a 52 year old male with a past medical history of COPD not on home O2, KENDRICK on CPAP at home, hypothyroidism, history of GI bleed from a perforated gastric ulcer, history of pituitary tumor on cabergoline, chronic cigarette smoking, obesity and hypertension who was brought in due to increasing shortness of breath and confusion. says that patient has been off his CPAP machine for the past 3 weeks due to recently removed tooth abscess causing pain when he uses the CPAP at home. She says that he has been complaining of slowly progressive shortness of breath for almost a week now. She says that he has chronic cough but it has not been significantly more productive than his baseline cough. He says that yesterday patient was noted to be weaker and lethargic. This morning, he was more confused and did not know what day it was. In the ER, patient was noted to have severely elevated PCO2 of 104. Chest x-ray shows left-sided pneumonia. He was placed on BiPAP. Upon encounter, patient appears lethargic but is arousable. He is oriented to person and place and is able to tell me some of his history. There was initial report that he complained of chest pain but when this was clarified with patient and , patient says that he did not have chest pain but more of shortness of breath. His does say that he has been having increasing pedal edema in the past 2 weeks. 12/01 I was asked to evaluate the patient by Dr. Pierre. The patient has been drowsy. His inital ABG showed a significant acute on chronic respiratory acidosis. The patient was admitted and intubated easton 3 weeks about 1 year ago. 12/02 The patient had a quiet night . he is doing much better. he is off BIPAP and on a nasal cannula. He is fully awake and cogent. Reason For Visit: ACUTE RESPIRATORY FAILURE Physical Exam Vital Signs: Temp Pulse Resp BP Pulse Ox 98.4 F 122 H 28 H 129/88 H 94 12/02/18 08:00 12/02/18 08:11 12/02/18 08:11 12/02/18 08:00 12/02/18 08:11 Intake & Output 12/01/18 12/02/18 12/03/18 06:59 06:59 06:59 Intake Total 0 Output Total 1470 0 Balance -1470 0 Weight 118.4 kg General appearance: PRESENT: no acute distress Head exam: PRESENT: normocephalic Eye exam: PRESENT: conjunctiva pink, EOMI, PERRLA Ear exam: PRESENT: normal external ear exam Mouth exam: PRESENT: moist Neck exam: ABSENT: carotid bruit, tenderness Respiratory exam: PRESENT: wheezes. ABSENT: accessory muscle use Additional comments: Coarse Rales appreciated at the left base Cardiovascular exam: PRESENT: RRR, +S1, +S2 Pulses: PRESENT: +2 pedal pulses bilateral Vascular exam: PRESENT: normal capillary refill GI/Abdominal exam: PRESENT: normal bowel sounds, soft Rectal exam: PRESENT: deferred Extremities exam: PRESENT: full ROM. ABSENT: joint swelling Musculoskeletal exam: PRESENT: full ROM Neurological exam: PRESENT: alert, awake, oriented to person, oriented to place, oriented to time Psychiatric exam: PRESENT: appropriate affect Results Laboratory Results: 12/01/18 09:04 12/01/18 09:57 12/01/18 12/01/18 12/01/18 09:04 09:04 09:04 WBC 11.5 H RBC 4.86 Hgb 16.0 Hct 49.5 MCV 102 H MCH 32.9 MCHC 32.3 RDW 16.0 H Plt Count 300 Seg Neutrophils % 81.7 H Carbonic Acid HCO3/H2CO3 Ratio ABG pH ABG pCO2 ABG pO2 ABG HCO3 ABG O2 Saturation ABG Base Excess VBG pH VBG pCO2 VBG HCO3 VBG Base Excess FiO2 Sodium Cancelled Potassium Cancelled Chloride Cancelled Carbon Dioxide Cancelled Anion Gap Cancelled BUN Cancelled Creatinine Cancelled Est GFR ( Amer) Cancelled Est GFR (Non-Af Amer) Cancelled Glucose Cancelled Lactic Acid 0.8 Calcium Cancelled Total Bilirubin Cancelled AST Cancelled Alkaline Phosphatase Cancelled Total Protein Cancelled Albumin Cancelled TSH Free T4 Free T3 pg/mL Urine Color Urine Appearance Urine pH Ur Specific [place] Urine Protein Urine Glucose (UA) Urine Ketones Urine Blood Urine Nitrite Ur Leukocyte Esterase Urine WBC (Auto) Urine RBC (Auto) 12/01/18 12/01/18 12/01/18 09:04 09:04 09:57 WBC RBC Hgb Hct MCV MCH MCHC RDW Plt Count Seg Neutrophils % Carbonic Acid HCO3/H2CO3 Ratio ABG pH ABG pCO2 ABG pO2 ABG HCO3 ABG O2 Saturation ABG Base Excess VBG pH VBG pCO2 VBG HCO3 VBG Base Excess FiO2 Sodium 141.5 Potassium 4.4 Chloride 102 Carbon Dioxide 34 H Anion Gap 6 BUN 21 H Creatinine 0.80 Est GFR ( Amer) > 60 Est GFR (Non-Af Amer) Glucose 110 Lactic Acid Calcium 9.4 Total Bilirubin 0.3 AST 30 Alkaline Phosphatase 61 Total Protein 6.8 Albumin 4.1 TSH 11.10 H Free T4 0.63 L Free T3 pg/mL 2.51 L Urine Color Urine Appearance Urine pH Ur Specific [place] Urine Protein Urine Glucose (UA) Urine Ketones Urine Blood Urine Nitrite Ur Leukocyte Esterase Urine WBC (Auto) Urine RBC (Auto) 12/01/18 12/01/18 12/01/18 10:10 13:52 15:22 WBC RBC Hgb Hct MCV MCH MCHC RDW Plt Count Seg Neutrophils % Carbonic Acid 3.14 H HCO3/H2CO3 Ratio 11:1 ABG pH 7.14 L* ABG pCO2 104.4 H* ABG pO2 73.0 L ABG HCO3 35.0 H ABG O2 Saturation 88.5 L ABG Base Excess 1.7 VBG pH 7.15 L* VBG pCO2 92.7 H* VBG HCO3 31.6 VBG Base Excess -0.7 FiO2 100% NRB Sodium Potassium Chloride Carbon Dioxide Anion Gap BUN Creatinine Est GFR ( Amer) Est GFR (Non-Af Amer) Glucose Lactic Acid Calcium Total Bilirubin AST Alkaline Phosphatase Total Protein Albumin TSH Free T4 Free T3 pg/mL Urine Color YELLOW Urine Appearance CLEAR Urine pH 6.0 Ur Specific [place] 1.033 Urine Protein >=500 H Urine Glucose (UA) NEGATIVE Urine Ketones NEGATIVE Urine Blood NEGATIVE Urine Nitrite NEGATIVE Ur Leukocyte Esterase NEGATIVE Urine WBC (Auto) 4 Urine RBC (Auto) 2 12/01/18 12/02/18 18:38 03:00 WBC RBC Hgb Hct MCV MCH MCHC RDW Plt Count Seg Neutrophils % Carbonic Acid 2.10 H 1.93 H HCO3/H2CO3 Ratio 15:1 16:1 ABG pH 7.29 L 7.31 L ABG pCO2 69.9 H* 64.0 H ABG pO2 76.3 L 70.6 L ABG HCO3 32.8 H 31.5 H ABG O2 Saturation 93.3 L 92.3 L ABG Base Excess 3.4 3.2 VBG pH VBG pCO2 VBG HCO3 VBG Base Excess FiO2 40% 4 L NC Sodium Potassium Chloride Carbon Dioxide Anion Gap BUN Creatinine Est GFR ( Amer) Est GFR (Non-Af Amer) Glucose Lactic Acid Calcium Total Bilirubin AST Alkaline Phosphatase Total Protein Albumin TSH Free T4 Free T3 pg/mL Urine Color Urine Appearance Urine pH Ur Specific [place] Urine Protein Urine Glucose (UA) Urine Ketones Urine Blood Urine Nitrite Ur Leukocyte Esterase Urine WBC (Auto) Urine RBC (Auto) 12/01/18 12/01/18 12/01/18 09:04 09:04 09:57 Creatine Kinase Cancelled 74 CK-MB (CK-2) Troponin I Cancelled NT-Pro-B Natriuret Pep Cancelled 12/01/18 09:57 Creatine Kinase CK-MB (CK-2) 1.80 Troponin I 0.031 NT-Pro-B Natriuret Pep Impressions: Chest X-Ray 12/01/18 08:49 IMPRESSION: Left pneumonia and parapneumonic effusion. Head CT 12/01/18 15:14 IMPRESSION: NO ACUTE INTRACRANIAL FINDINGS. EVIDENCE OF ACUTE STROKE: NO. Assessment & Plan - Diagnosis (1) Acute and chronic respiratory failure with hypercapnia Is this a current diagnosis for this admission?: Yes Plan: The patient has an ABG consistent with acute on chronic respiratory failure 12/02 His subsequrent ABGs have markedly improved and his mentla status as well. His wob is normal at this point. (2) COPD exacerbation Is this a current diagnosis for this admission?: Yes Plan: The patient has a long history of chronic COPD. He is on home and uses a CPAP at . He was not able to use his CPAP the opast few weeks which likely contributed to this worsening respiratory acidosis. 12/02 In the [facility] the patient likely needs a LABA/steroid type of inhaler (3) Hypothyroidism (acquired) Is this a current diagnosis for this admission?: Yes Plan: The patient has an elevated TSH and low free T4. it appears that he is proably a bit hypothyrioid. i am giving himn synthorid IV at slightly higher than 1/2 his normal dose. (4) Pneumonia Qualifiers: Pneumonia type: due to unspecified organism Laterality: left Lung location: lower lobe of lung Qualified Code(s): J18.1 - Lobar pneumonia, unspecified organism Is this a current diagnosis for this admission?: Yes Plan: The patient has a large LLL +/- lingular pneumonia. Will request sputm culture. The patient was started empirically on Levaquin 12/02 Repeat CXR pending. the patient denies any sputum production - Time Time Spent with patient: 25-34 minutes Medications reviewed and adjusted accordingly: Yes Anticipated discharge: Home Within: within 36 hours
[2018-12-02] MEDS: HEPARIN SOD (PORCINE) 5,000 UNIT/ML 1 ML VIAL SUBCUT SCH ×2 (11:04→21:31)
[2018-12-02] MEDS: LEVOFLOXACIN 750 MG/D5W RTU 750 MG/150 ML RTUPB IV SCH (11:04)
[2018-12-02] MEDS: METHYLPREDNISOLONE INJ 40 MG/1 ML SDV IV SCH ×2 (11:05→21:31)
[2018-12-02] MEDS: LEVOTHYROXINE SODIUM INJ/PF 0.1 MG SDV IV SCH (11:05)
[2018-12-02] MEDS: FAMOTIDINE INJ/PF 20 MG/2 ML SDV IV SCH ×2 (11:33→21:31)
[2018-12-02] MEDS ORDERED: ACETAMINOPHEN 325 MG TABLET PO PRN (15:19)
[2018-12-02] MEDS: NICOTINE 21 MG/24 HR PATCH.TD24 TD SCH (15:26)
--- NOTE | 2018-12-02 19:38 | XCELERA REPORT ---
[address] [address] Transthoracic Echocardiogram Report Name: JOSEPH CAREY Age: 52 yrs Gender: Male : 1965 Patient Status: Inpatient Patient Location: ICU^601^A Study Date: 12/02/2018 10:31 AM Height: 69 in Weight: 259 lb BSA: 2.3 m2 Procedure: A two-dimensional transthoracic echocardiogram with color flow and Doppler was performed. Study Quality: Technically suboptimal. Images were not obtained from all of the standard acoustic windows due to the limited scope of the study. Reason For Study: exertional dyspnea, new pedal edema History: exertional dyspnea, new pedal edema. Ordering Physician: JANINE LOO Performed By: Jessica Gomez Interpretation Summary The left ventricle is normal in size. There is normal left ventricular wall thickness. LV EF is > than 65%.% The left ventricular ejection fraction is within normal limits. Doppler measurements suggest impaired left ventricular relaxation, which is associated with grade I/IV or mild diastolic dysfunction The left ventricular wall motion is normal. There is no thrombus. Cannot assess ASD , VSD , or PFO. The right ventricle is not well visualized secondary to technical limitations Suspect RV enlargement , RVH and decreasded RVEF. Suspect RA enlargement. Right atrium not well visualized secondary to technical limitations The left atrial size is normal. There is no evidence of mitral valve prolapse. There is no vegetation seen on the mitral valve. There is no mitral valve stenosis. There is no mitral regurgitation noted. There is no aortic valvular vegetation. There is aortic sclerosis without aortic stenosis. No aortic regurgitation is present. Tricuspid valve interogation sub optimal.Probably mild TR , and svere pulmonary hypertension.RVSP is 64 mm of Hg , with RA mean of 10. The pulmonic valve is not well visualized. The aortic root is normal size. The inferior vena cava was not visualized There is no pericardial effusion. MMode/2D Measurements & Calculations RVDd: 4.1 cm LVIDd: 5.8 cm FS: 38.9 % Ao root diam: 3.1 cm IVSd: 0.87 cm LVIDs: 3.5 cm EDV(Teich): LVPWd: 1.1 cm 166.4 ml Ao root area: ESV(Teich): 7.5 cm2 52.4 ml EF(Teich): 68.5 % EDV(MOD-sp4): SV(MOD-sp4): 118.7 ml 63.2 ml ESV(MOD-sp4): 55.5 ml EF(MOD-sp4): 53.2 % Doppler Measurements & Calculations MV E max evita: MV dec slope: Ao V2 max: LV V1 max P.0 cm/sec 164.7 cm/sec 4.5 mmHg MV A max evita: 295.9 cm/sec2 Ao max PG: LV V1 max: 106.1 cm/sec MV dec time: 10.9 mmHg 105.7 cm/sec MV E/A: 0.75 0.27 sec PA V2 max: PI end-d evita: TR max evita: 118.5 cm/sec 173.7 cm/sec 367.9 cm/sec PA max P.6 mmHg TR max P.1 mmHg Left Ventricle The left ventricle is normal in size. There is normal left ventricular wall thickness. LV EF is > than 65%.%. The left ventricular ejection fraction is within normal limits. Doppler measurements suggest impaired left ventricular relaxation, which is associated with grade I/IV or mild diastolic dysfunction. The left ventricular wall motion is normal. There is no thrombus. Cannot assess ASD , VSD , or PFO. Right Ventricle The right ventricle is not well visualized secondary to technical limitations. Suspect RV enlargement , RVH and decreasded RVEF. Atria Suspect RA enlargement. Right atrium not well visualized secondary to technical limitations. The left atrial size is normal. Mitral Valve There is no evidence of mitral valve prolapse. There is no vegetation seen on the mitral valve. There is no mitral valve stenosis. There is no mitral regurgitation noted. Aortic Valve There is no aortic valvular vegetation. There is no aortic valve stenosis. There is aortic sclerosis without aortic stenosis. No aortic regurgitation is present. Tricuspid Valve There is no tricuspid stenosis. Tricuspid valve interogation sub optimal.Probably mild TR , and svere pulmonary hypertension.RVSP is 64 mm of Hg , with RA mean of 10. Pulmonic Valve The pulmonic valve is not well visualized. Great Vessels The aortic root is normal size. The inferior vena cava was not visualized. Effusions There is no pericardial effusion. : JANINE LOO Lakshmi
[2018-12-03] MEDS: IPRATROPIUM/ALBUTEROL 0.5-2.5 MG/3 ML AMPUL NEB SCH ×6 (00:04→19:13)
[2018-12-03 04:32] LABS: ALBUMIN 4.1 g/dL (3.5-5.0); ALKALINE PHOSPHATASE 49 U/L (38-126); ANION GAP 6 (5-19); ASPARTATE AMINO TRANSFERASE 30 U/L (17-59); BILIRUBIN,DIRECT 0.2 mg/dL (0.0-0.4); BILIRUBIN,TOTAL 0.4 mg/dL (0.2-1.3); BLOOD UREA NITROGEN 24 mg/dL (7-20); CALCIUM 9.8 mg/dL (8.4-10.2); CARBON DIOXIDE 34 mmol/L (22-30); CHLORIDE 98 mmol/L (98-107); GLUCOSE 154 mg/dL (75-110); HEMOGLOBIN 14.4 g/dL (13.5-17.0); MEAN CORPUSCULAR HEMOGLOBIN 32.4 pg (27.0-33.4); MEAN CORPUSCULAR HGB CONC 32.1 g/dL (32.0-36.0); MEAN CORPUSCULAR VOLUME 101 fl (80-97); PLATELET COUNT 242 10^3/uL (150-450); POTASSIUM 4.5 mmol/L (3.6-5.0); RED BLOOD COUNT 4.45 10^6/uL (4.35-5.55); RED CELL DISTRIBUTION WIDTH 15.4 % (11.5-14.0); WHITE BLOOD COUNT 8.1 10^3/uL (4.0-10.5)
[2018-12-03 04:49] LABS: ABSOLUTE LYMPHOCYTES# (MANUAL) 0.2 10^3/uL (0.5-4.7); ABSOLUTE MONOCYTES # (MANUAL) 0.6 10^3/uL (0.1-1.4); BASOPHILS % (MANUAL) 0 % (0-2); EOSINOPHILS % (MANUAL) 0 % (0-6); LYMPHOCYTES % (MANUAL) 3 % (13-45); MONOCYTES % (MANUAL) 8 % (3-13); SEGMENTED NEUTROPHILS % (MAN) 89 % (42-78); TOTAL CELLS COUNTED 100
[2018-12-03 04:51] LABS: ANISOCYTOSIS SLIGHT; PLATELET COMMENT ADEQUATE
[2018-12-03] MEDS: KETOROLAC TROMETHAMINE INJ/PF 30 MG/1 ML SDV IV PRN ×2 (05:50→21:26)
[2018-12-03] MEDS: INSULIN LISPRO 100 UNIT/ML 3 ML VIAL SUBCUT SCH ×3 (06:46→17:59)
--- NOTE | 2018-12-03 07:44 | PDOC PROGRESS REPORT ---
Subjective Progress Note for:: 12/03/18 Subjective:: Patient complains of: SOB, confusion History of Present Illness: JOSEPH CAREY is a 52 year old male with a past medical history of COPD not on home O2, KENDRICK on CPAP at home, hypothyroidism, history of GI bleed from a perforated gastric ulcer, history of pituitary tumor on cabergoline, chronic cigarette smoking, obesity and hypertension who was brought in due to increasing shortness of breath and confusion. says that patient has been off his CPAP machine for the past 3 weeks due to recently removed tooth abscess causing pain when he uses the CPAP at home. She says that he has been complaining of slowly progressive shortness of breath for almost a week now. She says that he has chronic cough but it has not been significantly more productive than his baseline cough. He says that yesterday patient was noted to be weaker and lethargic. This morning, he was more confused and did not know what day it was. In the ER, patient was noted to have severely elevated PCO2 of 104. Chest x-ray shows left-sided pneumonia. He was placed on BiPAP. Upon encounter, patient appears lethargic but is arousable. He is oriented to person and place and is able to tell me some of his history. There was initial report that he complained of chest pain but when this was clarified with patient and , patient says that he did not have chest pain but more of shortness of breath. His does say that he has been having increasing pedal edema in the past 2 weeks. 12/01 I was asked to evaluate the patient by Dr. Pierre. The patient has been drowsy. His inital ABG showed a significant acute on chronic respiratory acidosis. The patient was admitted and intubated easton 3 weeks about 1 year ago. 12/02 The patient had a quiet night . he is doing much better. he is off BIPAP and on a nasal cannula. He is fully awake and cogent. 12/03 The patient appears to be doing relatively well. Uses CPAP at and nasal cannula by day Reason For Visit: ACUTE RESPIRATORY FAILURE Physical Exam Vital Signs: Temp Pulse Resp BP Pulse Ox 98.1 F 103 H 20 113/91 H 92 12/03/18 07:13 12/03/18 07:13 12/03/18 07:13 12/03/18 07:13 12/03/18 07:13 Intake & Output 12/02/18 12/03/18 12/04/18 06:59 06:59 06:59 Intake Total 0 150 Output Total 1470 1275 Balance -1470 -1125 Weight 118.4 kg 120.2 kg General appearance: PRESENT: no acute distress Head exam: PRESENT: atraumatic Eye exam: PRESENT: conjunctiva pink, EOMI Ear exam: PRESENT: normal external ear exam Mouth exam: PRESENT: moist Neck exam: PRESENT: full ROM. ABSENT: meningismus, tenderness Pulses: PRESENT: normal dorsalis pedis pul Vascular exam: PRESENT: normal capillary refill GI/Abdominal exam: PRESENT: normal bowel sounds, soft Extremities exam: PRESENT: full ROM. ABSENT: calf tenderness Musculoskeletal exam: PRESENT: full ROM Psychiatric exam: PRESENT: appropriate affect Results Laboratory Results: 12/03/18 04:05 12/03/18 04:05 12/03/18 12/03/18 04:05 04:05 WBC 8.1 RBC 4.45 Hgb 14.4 Hct 45.0 MCV 101 H MCH 32.4 MCHC 32.1 RDW 15.4 H Plt Count 242 Seg Neutrophils % Not Reportable Sodium 137.7 Potassium 4.5 Chloride 98 Carbon Dioxide 34 H Anion Gap 6 BUN 24 H Creatinine 0.88 Est GFR ( Amer) > 60 Glucose 154 H Calcium 9.8 Total Bilirubin 0.4 AST 30 Alkaline Phosphatase 49 Total Protein 7.0 Albumin 4.1 12/01/18 12/01/18 12/01/18 09:04 09:04 09:57 Creatine Kinase Cancelled 74 CK-MB (CK-2) Troponin I Cancelled NT-Pro-B Natriuret Pep Cancelled 12/01/18 09:57 Creatine Kinase CK-MB (CK-2) 1.80 Troponin I 0.031 NT-Pro-B Natriuret Pep Impressions: Chest X-Ray 12/01/18 08:49 IMPRESSION: Left pneumonia and parapneumonic effusion. Head CT 12/01/18 15:14 IMPRESSION: NO ACUTE INTRACRANIAL FINDINGS. EVIDENCE OF ACUTE STROKE: NO. Assessment & Plan - Diagnosis (1) Acute and chronic respiratory failure with hypercapnia Is this a current diagnosis for this admission?: Yes Plan: The patient has an ABG consistent with acute on chronic respiratory failure 12/02 His subsequrent ABGs have markedly improved and his mentla status as well. His wob is normal at this point. 12/03 patient apears comfortable. He is awake and oriented Hos Resp rate is normal 02 sata re fairly nprmal on low flow 02. (2) COPD exacerbation Is this a current diagnosis for this admission?: Yes (3) Pneumonia Qualifiers: Pneumonia type: due to unspecified organism Laterality: left Lung location: lower lobe of lung Qualified Code(s): J18.1 - Lobar pneumonia, unspecified organism Is this a current diagnosis for this admission?: Yes Plan: The patient has a large LLL +/- lingular pneumonia. Will request sputm culture. The patient was started empirically on Levaquin 12/02 Repeat CXR pending. the patient denies any sputum production 12/03 Blood cultures of 12/01 negative The patient remains on Levaquin. WBC down form 12/01 to 12/03 (4) Hypothyroidism (acquired) Is this a current diagnosis for this admission?: Yes Plan: The patient has an elevated TSH and low free T4. it appears that he is proably a bit hypothyrioid. i am giving himn synthorid IV at slightly higher than 1/2 his normal dose. 12/03 Will recheck TFTs in a week - Time Time Spent with patient: 15-24 minutes Anticipated discharge: Home Within: within 36 hours
[2018-12-03] MEDS ORDERED: CABERGOLINE 0.25 MG PO SCH (10:00)
[2018-12-03] MEDS: LEVOTHYROXINE SODIUM INJ/PF 0.1 MG SDV IV SCH (10:47)
[2018-12-03] MEDS: HYDROCODONE/ACETAMINOPHEN 5-325 MG TABLET PO PRN ×2 (10:47→18:35)
[2018-12-03] MEDS: FAMOTIDINE INJ/PF 20 MG/2 ML SDV IV SCH ×2 (10:48→21:21)
[2018-12-03] MEDS: NICOTINE 21 MG/24 HR PATCH.TD24 TD SCH (10:48)
[2018-12-03] MEDS: HEPARIN SOD (PORCINE) 5,000 UNIT/ML 1 ML VIAL SUBCUT SCH ×2 (10:48→21:21)
[2018-12-03] MEDS: LEVOFLOXACIN 750 MG/D5W RTU 750 MG/150 ML RTUPB IV SCH (10:48)
[2018-12-03] MEDS: METHYLPREDNISOLONE INJ 40 MG/1 ML SDV IV SCH ×2 (12:51→21:21)
--- NOTE | 2018-12-03 15:21 | RADIOLOGY REPORT (SQ) ---
EXAM DESCRIPTION: CHEST 2 VIEWS COMPLETED DATE/TIME: 12/03/2018 3:02 pm REASON FOR STUDY: LLL pneumonia COMPARISON: 12/01/2018 EXAM PARAMETERS: NUMBER OF VIEWS: two views TECHNIQUE: Digital Frontal and Lateral radiographic views of the chest acquired. RADIATION DOSE: NA LIMITATIONS: none FINDINGS: LUNGS AND PLEURA: Persistent left pleural effusion and left lower lobe infiltrate most lik rufino pneumonia. Probable small right effusion. MEDIASTINUM AND HILAR STRUCTURES: No masses or contour abnormalities. HEART AND VASCULAR STRUCTURES: Heart is enlarged with central vascular congestion. BONES: No acute findings. HARDWARE: None in the chest. OTHER: No other significant finding. IMPRESSION: 1. Persistent left lower lobe infiltrate slightly improved from prior study. There are bilateral pleural effusions left greater than right. 2. Mild vascular congestion. TECHNICAL DOCUMENTATION: JOB ID: [id number] [email or web address]- All Rights Reserved Reading location - IP/workstation name: [email or web address]
[2018-12-04] MEDS: IPRATROPIUM/ALBUTEROL 0.5-2.5 MG/3 ML AMPUL NEB SCH ×4 (00:28→12:18)
[2018-12-04] MEDS: HYDROCODONE/ACETAMINOPHEN 5-325 MG TABLET PO PRN ×2 (00:51→07:44)
[2018-12-04] MEDS: INSULIN LISPRO 100 UNIT/ML 3 ML VIAL SUBCUT SCH ×3 (00:58→13:23)
--- NOTE | 2018-12-04 08:40 | PDOC PROGRESS REPORT ---
Subjective Progress Note for:: 12/04/18 Subjective:: ICU Progress Note. Mr Lynn is a 52 yo man admitted with acute on chronic resp failure, AECOPD, CAP. He used his bipap overnight and is on nasal cannula this am. He reports feeling better. Reason For Visit: ACUTE RESPIRATORY FAILURE Physical Exam Vital Signs: Temp Pulse Resp BP Pulse Ox 97.5 F 99 15 147/100 H 96 12/04/18 07:08 12/04/18 08:07 12/04/18 08:07 12/04/18 07:08 12/04/18 08:07 Intake & Output 12/03/18 12/04/18 12/05/18 06:59 06:59 06:59 Intake Total 150 150 Output Total 1275 1525 280 Balance -5285 -3325 -280 Weight 120.2 kg 122.1 kg General appearance: PRESENT: no acute distress, well-developed, well-nourished Head exam: PRESENT: atraumatic, normocephalic Respiratory exam: PRESENT: wheezes Cardiovascular exam: PRESENT: RRR GI/Abdominal exam: PRESENT: soft Results Laboratory Results: 12/03/18 04:05 12/03/18 04:05 12/01/18 15:22 Clean Catch Midstream Legionella Urinary Antigen - Final 12/01/18 12/01/18 12/01/18 09:04 09:04 09:57 Creatine Kinase Cancelled 74 CK-MB (CK-2) Troponin I Cancelled NT-Pro-B Natriuret Pep Cancelled 12/01/18 09:57 Creatine Kinase CK-MB (CK-2) 1.80 Troponin I 0.031 NT-Pro-B Natriuret Pep Impressions: Head CT 12/01/18 15:14 IMPRESSION: NO ACUTE INTRACRANIAL FINDINGS. EVIDENCE OF ACUTE STROKE: NO. Chest X-Ray 12/03/18 08:00 IMPRESSION: 1. Persistent left lower lobe infiltrate slightly improved from prior study. There are bilateral pleural effusions left greater than right. 2. Mild vascular congestion. Assessment & Plan - Diagnosis (1) Acute and chronic respiratory failure with hypercapnia Is this a current diagnosis for this admission?: Yes Plan: Acute on chronic respiratory failure, resolving. Continue bipap qhs and prn. Pt has KENDRICK and is on CPAP at home. Is on 2liters NC. Wean to RA as tolerated. (2) COPD exacerbation Is this a current diagnosis for this admission?: Yes Plan: AECOPD, resolving. Continue breathing treatments. Change steroids to po. Continue levaquin and change to po. (3) Pneumonia Qualifiers: Pneumonia type: due to unspecified organism Laterality: left Lung location: lower lobe of lung Qualified Code(s): J18.1 - Lobar pneumonia, unspecified organism Is this a current diagnosis for this admission?: Yes Plan: CAP, resolving. Day 4 Levaquin. Will change to po. (4) Hypothyroidism (acquired) Is this a current diagnosis for this admission?: Yes Plan: Hypothyroidism: continue synthroid. Also monitoring blood sugars. (5) DVT prophylaxis Is this a current diagnosis for this admission?: Yes Plan: SQ heparin (6) Disposition Is this a current diagnosis for this admission?: No Plan: Possibly home later today.
[2018-12-04 09:34] LABS: ANION GAP 7 (5-19); BLOOD UREA NITROGEN 19 mg/dL (7-20); CALCIUM 10.1 mg/dL (8.4-10.2); CARBON DIOXIDE 33 mmol/L (22-30); CHLORIDE 98 mmol/L (98-107); GLUCOSE 112 mg/dL (75-110); POTASSIUM 4.7 mmol/L (3.6-5.0)
[2018-12-04] MEDS ORDERED: LEVOFLOXACIN 750 MG TABLET PO SCH (10:00)
[2018-12-04] MEDS ORDERED: PREDNISONE 20 MG TABLET PO SCH (10:00)
[2018-12-04] MEDS: NICOTINE 21 MG/24 HR PATCH.TD24 TD SCH (10:56)
[2018-12-04] MEDS: HEPARIN SOD (PORCINE) 5,000 UNIT/ML 1 ML VIAL SUBCUT SCH (10:57)
[2018-12-04] MEDS: FAMOTIDINE INJ/PF 20 MG/2 ML SDV IV SCH (10:58)
[2018-12-04] MEDS ORDERED: LEVOTHYROXINE SODIUM INJ/PF 0.5 MG SDV IV SCH (11:00)
[2018-12-04] MEDS ORDERED: LEVOTHYROXINE SODIUM 0.112 MG TABLET PO SCH (11:00)
[2018-12-04 11:12] LABS: HEMOGLOBIN 15.5 g/dL (13.5-17.0); MEAN CORPUSCULAR HEMOGLOBIN 32.4 pg (27.0-33.4); MEAN CORPUSCULAR HGB CONC 32.2 g/dL (32.0-36.0); MEAN CORPUSCULAR VOLUME 101 fl (80-97); RED BLOOD COUNT 4.77 10^6/uL (4.35-5.55); RED CELL DISTRIBUTION WIDTH 15.7 % (11.5-14.0); WHITE BLOOD COUNT 11.7 10^3/uL (4.0-10.5)
[2018-12-04] MEDS: LEVOTHYROXINE SODIUM INJ/PF 0.1 MG SDV IV SCH (11:18)
[2018-12-04 11:27] LABS: PLATELET COUNT 222 10^3/uL (150-450)
[2018-12-04 12:14] VITALS: BP 143/89
--- NOTE | 2018-12-04 12:44 | PDOC DISCHARGE SUMMARY ---
General - Admit/Disc Date/PCP Admission Date/Primary Care Provider: 12/01/18 15:42 KIRBY YANG PA-C Discharge Date: 12/04/18 - Discharge Diagnosis (1) Acute and chronic respiratory failure with hypercapnia Is this a current diagnosis for this admission?: Yes (2) COPD exacerbation Is this a current diagnosis for this admission?: Yes (3) Pneumonia Is this a current diagnosis for this admission?: Yes (4) Hypothyroidism (acquired) Is this a current diagnosis for this admission?: Yes (5) DVT prophylaxis Is this a current diagnosis for this admission?: No (6) Disposition Is this a current diagnosis for this admission?: No - Additional Information Resuscitation Status: Full Code Discharge Diet: Cardiac Discharge Activity: Activity As Tolerated Prescriptions: Prednisone [Deltasone 20 mg Tablet] 20 mg PO DAILY #30 tablet Levofloxacin [Levaquin 750 mg Tablet] 750 mg PO DAILY 4 Days #7 tablet Nicotine [Nicoderm 21 mg/24 Hr Transderm Patch] 1 each TD DAILY #30 patch.td24 Home Medications: Cabergoline [Cabergoline 0.5 mg Tablet] 0.25 mg PO TUFR@1000 08/19/17 Levothyroxine Sodium [Synthroid 0.112 mg Tablet] 0.224 mg PO Q6AM 08/19/17 Albuterol Sulfate [Albuterol Sulfate Hfa] 2 puff IH Q6HP PRN 12/01/18 Ipratropium/Albuterol Sulfate [Duoneb 3 ml Ampul] 3 ml NEB RTQ4HP PRN 12/01/18 Levofloxacin [Levaquin 750 mg Tablet] 750 mg PO DAILY 4 Days #7 tablet 12/04/18 Nicotine [Nicoderm 21 mg/24 Hr Transderm Patch] 1 each TD DAILY #30 patch.td24 12/04/18 Prednisone [Deltasone 20 mg Tablet] 20 mg PO DAILY #30 tablet 12/04/18 Additional Information: Pt also being discharged on 2liters home O2. History of Present Illness History of Present Illness: JOSEPH CAREY is a 52 year old male who was admitted on 12/01 with increasing shortness of breath. Pt was found to be in acute on chronic resp failure. He also had AECODP and as well as PNA. Hospital Course Hospital Course: Pt was placed on bipap, started on steroids, duonebs, and IV levaquin. He has progressively improved. On the day of discharge, he is afebrile, with stable vi tals signs. He is on 2 liters NC. He did become hypoxic with an O2 sat of 88% on RA upon ambulation. Therefore, he will be discharged home with oxygen. He has been counseled to quit smoking and to follow up with his PCP in the next 3-5 days. Physical Exam Vital Signs: Temp Pulse Resp BP Pulse Ox 98.1 F 105 H 22 H 143/89 H 97 12/04/18 12:00 12/04/18 12:24 12/04/18 12:24 12/04/18 12:00 12/04/18 12:24 Intake & Output 12/03/18 12/04/18 12/05/18 06:59 06:59 06:59 Intake Total 150 150 Output Total 1275 1726 280 Balance -1125 -3325 -280 Weight 120.2 kg 122.1 kg Physical Exam: please refer to today's progress note. Results Laboratory Results: 12/04/18 10:49 12/04/18 09:05 12/04/18 12/04/18 12/04/18 08:24 08:24 09:05 WBC Cancelled RBC Cancelled Hgb Cancelled Hct Cancelled MCV Cancelled MCH Cancelled MCHC Cancelled RDW Cancelled Plt Count Cancelled Sodium Cancelled 137.6 Potassium Cancelled 4.7 Chloride Cancelled 98 Carbon Dioxide Cancelled 33 H Anion Gap Cancelled 7 BUN Cancelled 19 Creatinine Cancelled 0.74 Est GFR ( Amer) Cancelled > 60 Est GFR (Non-Af Amer) Cancelled Glucose Cancelled 112 H Calcium Cancelled 10.1 12/04/18 10:49 WBC 11.7 H RBC 4.77 Hgb 15.5 Hct 48.0 MCV 101 H MCH 32.4 MCHC 32.2 RDW 15.7 H Plt Count 222 Sodium Potassium Chloride Carbon Dioxide Anion Gap BUN Creatinine Est GFR ( Amer) Est GFR (Non-Af Amer) Glucose Calcium 12/01/18 15:22 Clean Catch Midstream Legionella Urinary Antigen - Final 12/01/18 12/01/18 12/01/18 09:04 09:04 09:57 Creatine Kinase Cancelled 74 CK-MB (CK-2) Troponin I Cancelled NT-Pro-B Natriuret Pep Cancelled 12/01/18 09:57 Creatine Kinase CK-MB (CK-2) 1.80 Troponin I 0.031 NT-Pro-B Natriuret Pep Impressions: Head CT 12/01/18 15:14 IMPRESSION: NO ACUTE INTRACRANIAL FINDINGS. EVIDENCE OF ACUTE STROKE: NO. Chest X-Ray 12/03/18 08:00 IMPRESSION: 1. Persistent left lower lobe infiltrate slightly improved from prior study. There are bilateral pleural effusions left greater than right. 2. Mild vascular congestion. Qualifiers - * PATIENT BEING DISCHARGED WITH ANY OF THE FOLLOWING DIAGNOSIS: No Acute Heart Failure - Is this a Heart Failure Patient?: No Plan Time Spent: Greater than 30 Minutes Provider Note Provider Note: Pt will be discharged home. He has been instructed to f/u with his PCP in 3-5 day.
[2018-12-05] MEDS ORDERED: PREDNISONE 20 MG TABLET PO SCH (10:00)
== END 2018-12-04 16:00 | disposition home or self-care (01) | DRG 189 ==
LOC: ER 08:25 → EH 15:42 → ICU 20:00
PROVIDERS: ADMIT Internal Medicine; ATTEND Internal Medicine
PROC: 5A09457 Assistance with Respiratory Ventilation, 24-96 Consecutive Hours, Continuous Positive Airway Pressure (ICD-10-PCS; principal; 2018-12-01)
DX: J96.22 Acute and chronic respiratory failure with hypercapnia (principal); J18.1 Lobar pneumonia, unspecified organism; J44.1 Chronic obstructive pulmonary disease with (acute) exacerbation; J44.0 Chronic obstructive pulmonary disease with (acute) lower respiratory infection; E03.9 Hypothyroidism, unspecified; G47.33 Obstructive sleep apnea (adult) (pediatric); E66.9 Obesity, unspecified; D49.7 Neoplasm of unspecified behavior of endocrine glands and other parts of nervous system; F17.210 Nicotine dependence, cigarettes, uncomplicated; Z79.899 Other long term (current) drug therapy; Z91.19 Patient's noncompliance with other medical treatment and regimen; Z99.81 Dependence on supplemental oxygen
CPT/HCPCS: 36415; 36600; 70450; 71045; 71046; 80048; 80053; 81001; 82550; 82553; 82803; 82962; 83605; 84439; 84443; 84481; 84484; 85025; 85027; 87040; 93005; 93010; 93306; 94640; 94660; 96365; 96368; 96375; 99291; J0295; J0360; J0456; J1644; J1885; J1940; J1956; J2920; J2930; J3490; J7512; J7620; S0028